=== PATIENT | female | born 1940 | race Caucasian/White ===

== ENCOUNTER 2018-04-17 18:04 | Emergency (ER) | payer MEDICARE, OTHER, SELFPAY ==
[2018-04-17 18:05] VITALS: BP 160/95; PULSE 56; RESP 20; TEMP 36.6; O2SAT 91; BMI 29.2
--- NOTE | 2018-04-17 19:15 | CT_ITS ---
STUDY: CT ABDOMEN AND PELVIS WITH CONTRAST REASON FOR EXAM: Female, 78 years old. RT SIDED ABDOMEN AND GROIN PAIN hX: COPD, HTN, CHOLECYSTECTOMY, SKIN CANCER RADIATION DOSAGE (If Supplied By Facility): CTDIvol = ( 19.72 ) mGy, DLP = ( 876.14 ) mGycm TECHNIQUE: Transaxial images were obtained from the dome of the diaphragm to the symphysis pubis without oral contrast. 100ML ml of Isovue 300 contrast was administered. Sagittal and coronal images were reconstructed. Individualized dose optimization techniques were used for this CT. COMPARISON: 09.11.14 FINDINGS: There are atherosclerotic calcifications of visualized coronary arteries. The visualized portions of the heart are within normal limits. There is intrahepatic ductal dilation. There is non-visualization of the gallbladder, which may be secondary to either contraction or a prior cholecystectomy. There is dilation of the common bile duct. A common bile duct stone is not seen. The CBD diameter is 19 mm. Normal spleen. Stable dilation of the duct of the pancreas. Stable thickening of the left adrenal gland. There are subcentimeter hypodensities of the right kidney. These are too small to characterize. These may be cysts. Normal left kidney. Normal visualized stomach. Normal small intestine. There are multiple colonic diverticula consistent with diverticulosis. There is non-visualization of the appendix. There are calcifications of the abdominal aorta and vascular structures. This is consistent for atherosclerotic disease. There is no abdominal aortic aneurysm. Normal inferior vena cava. Subcentimeter mesenteric lymph nodes. Normal urinary bladder. There is absence of the uterus consistent with a prior hysterectomy.There are laminectomy changes in the spine. This is consistent for previous surgery. There is bilateral facet arthropathy. Normal abdominal wall. There are degenerative changes of the osseous structures. Degenerative findings of the hips. There is scoliosis of the lumbar spine. Grade 1 anterolisthesis of L4 on L5. Fusion of L2-3 and L3-4. Old appearing compression deformity of L1. Severe bilateral neural foraminal stenosis at L1-2 and L4-5 and L5-S1. CT/Abdomen/Pelvis W IV Cont ONLY IMPRESSION: There are multiple diverticuli of the colon. There is diverticulosis but no radiographic signs for diverticulitis. There is dilation of the common bile duct. A common bile duct stone is not seen. The CBD diameter is 19 mm. Other findings as above. Electronically Signed: Moris Smith MD at 20:37 EDT , Service support ,
--- NOTE | 2018-04-17 19:22 | ED.VISSUMM ---
- ER Visit Summary Date of Service: 04/17/18 Chief Complaint: Right groin and abdominal pain History of Present Illness: The patient is a 78 F presenting with pain in her right groin and abdomen. She also complains of chronic back pain on the right side radiating to her right leg. She states the groin pain has worsened today. She has been taking her friend's Percocet with no improvement. She denies nausea or vomiting. Denies urinary complaints. Denies fever. Denies trauma. Physical Examination: Vitals are stable. Patient is afebrile. Alert no acute distress. HEENT exam is unremarkable. Neck is supple. Lungs are clear and equal bilaterally. Heart is regular rate and rhythm. Abdomen is soft right lower quadrant tenderness with no rebound or guarding Back right paraspinal lumbar muscle tenderness Extremities are unremarkable. Skin is warm and dry. No focal neurologic deficit. Remainder of exam is unremarkable. Emergency Department Course and Treatment: Patient given dilaudid, Zofran IV. CBC, chemistries unremarkable other than potassium 3.3, glucose 140. Liver and lipase are normal. Urinalysis is 10-25 white blood cells, 1+ bacteria. CT abdomen pelvis shows there are multiple diverticuli of the colon. There is diverticulosis but no radiographic signs for diverticulitis. There is dilation of the common bile duct. A common bile duct stone is not seen. The CBD diameter is 19 mm. Urine culture is sent. She is given Keflex. On reevaluation she is feeling much improved. She states she was only taking half Percocet which was not helping her pain. She is given a prescription for Percocet and Keflex. She is advised to follow-up with her primary care physician. Advised return to ED if worsening complaints. Disposition: Discharge home Impression: Abdominal pain, UTI, chronic back pain This note was generated with [employer] dictation software. It may contain incorrect words, spelling, and punctuation that were not noted in review of the chart prior to signing ED Disposition - Plan for ED Patient: Chief Complaint: Back Referrals: Mian Pal MD [Primary Care Provider] -
[2018-04-17] MEDS: HYDROmorphone 1 MG/ML Syringe IV (19:32)
[2018-04-17] MEDS: Ondansetron 4 MG/2 ML Vial IV (19:32)
[2018-04-17 19:36] LABS: Absolute Lymphocyte Count 1.04 X10^3/ul (0.83-4.51); Absolute Neutrophil Count 8.5 X10^3/uL (2.0-7.7); Basophil# 0.02 X10^3/uL; Basophil% 0.2 % (0-1); Eosinophil# 0.01 X10^3/uL; Eosinophils% 0.1 % (0-5); Hematocrit 47.2 % (37-47); Hemoglobin 15.5 g/dl (12.0-15.0); Lymphocyte # 1.04 X10^3/ul (4.0); Lymphocyte % 10.3 % (19-41); Mean Corp Hgb Conc 32.8 g/gl (32-36); Mean Corpuscular Hgb 32.4 pg (27.0-32.0); Mean Corpuscular Volume 98.7 fL (81-99); Mean Platelet Vol. 9.5 fl (6.2-12.0); Monocyte# 0.44 X10^3/uL; Monocyte% 4.4 % (0-10); Neutrophil # 8.53 X10^3/uL (2.7-7.7); Neutrophil % 84.9 % (47-70); POSITIVE COUNT NO; POSITIVE DIFFERENTIAL NO; POSITIVE MORPHOLOGY NO; Platelet Count 277 K/mm3 (150-450); RBC Distribution Width CV 13.2 % (11.6-14.6); RBC Distribution Width SD 47.9 fl (35.1-43.9); Red Blood Count 4.78 M/mm3 (4.2-5.4); White Blood Count 10.1 K/mm3 (4.4-11.0)
[2018-04-17 19:48] LABS: BUN 16 mg/dL (7-18); Creatinine, Serum 1.01 mg/dL (0.55-1.02); EST Glomerular Filtration Rate 57 mL/min (>60); Estimated Creatinine Clearance 37.48 ml/min; Glucose 140 mg/dL (74-106)
[2018-04-17 19:49] LABS: Anion Gap 5 (5-15); BUN/Creat Ratio 15.8 RATIO (10-20); Calcium,Total 9.8 mg/dL (8.5-10.1); Chloride 98 mmol/L (98-107); Est Glom Filt Rate - Afr Amer 69 mL/min (>60); Potassium 3.3 mmol/L (3.5-5.1); Sodium Level 138 mmol/L (136-145)
[2018-04-17 20:49] LABS: Mucous, Urine 0 SEEN /hpf (<or=2+)
[2018-04-17 20:54] LABS: Color, Urine Yellow (Yellow); Glucose, Dipstick Normal (Normal); Ketone-Dipstick Negative (Negative); Leukocyte Esterase-Dipstick 100 /ul (Negative); Nitrite-Dipstick Positive (Negative); Occult Blood-Urine 150 /ul (Negative); Protein-Dipstick 30 mg/dl (Negative); Specific Gravity, Urine 1.015 (1.002-1.030); Urine Bilirubin Dipstick Negative (Negative); Urine Clarity Cloudy (Clear); Urine Urobilinogen Normal (Normal)
[2018-04-17 21:08] LABS: Hyaline Cast 0-5 SEEN /lpf (0-5)
[2018-04-17 21:08] LABS: AST(SGOT) 30 U/L (15-37); Alanine Aminotransfer ALT/SGPT 22 U/L (13-56); Albumin, Serum 3.2 g/dL (3.2-5.0); Alkaline Phosphatase 101 U/L (45-117); Bilirubin, Direct 0.15 mg/dL (0.00-0.30); Globulin 4.6 g/dL (2.2-4.2); Lipase 143 U/L (73-393); Protein, Total 7.8 g/dL (6.4-8.2)
[2018-04-17 21:11] LABS: Bacteria 1+ /hpf (None Seen)
[2018-04-17 21:13] LABS: Red Blood Cells-Urine 0-5 SEEN /hpf (0-5)
[2018-04-17 21:22] LABS: Yeast-Urine 2+ /hpf (None Seen)
[2018-04-17 21:23] LABS: Squamous Epithelial Cells - UA 5-10 SEEN /hpf (5-10)
[2018-04-17 21:24] LABS: White Blood Cells 10-25 SEEN /hpf (0-5)
--- NOTE | 2018-04-17 22:12 | ED.DEP ---
ED Disposition - Plan for ED Patient: Chief Complaint: Back Instructions: ED Abdominal Pain Unkn Cause Prescriptions: Oxycodone HCl/Acetaminophen [Percocet 5/325] 1 tablet PO Q6H PRN PRN 3 Days #12 tablet PRN Reason: Pain Cephalexin [Keflex] 500 mg PO BID #14 capsule Referrals: Mian Pal MD [Primary Care Provider] -
[2018-04-17] MEDS: Cephalexin 250 MG Capsule 500 MG PO (22:27)
[2018-04-17 22:35] VITALS: BP 167/84; PULSE 64; RESP 16; O2SAT 92
== END 2018-04-17 22:36 | disposition home or self-care (01) ==
LOC: ED 19:33
PROVIDERS: Emergency Provider Emergency Medicine; Family Provider Family Medicine; PCP Family Medicine
DX: R10.31 Right lower quadrant pain (principal); N39.0 Urinary tract infection, site not specified; K57.90 Diverticulosis of intestine, part unspecified, without perforation or abscess without bleeding; K83.8 Other specified diseases of biliary tract; M54.9 Dorsalgia, unspecified; G89.29 Other chronic pain; J44.9 Chronic obstructive pulmonary disease, unspecified; I10 Essential (primary) hypertension; Z72.0 Tobacco use; Z79.899 Other long term (current) drug therapy
CPT/HCPCS: 74177; 80048; 80076; 81001; 83690; 85025; 87086; 87088; 87186; 96374; 96375; 99284; Q9967; A4216; J2405

== ENCOUNTER 2018-04-22 11:59 | Emergency (ER) | payer MEDICARE, OTHER, SELFPAY ==
[2018-04-22 11:59] VITALS: BP 184/73; PULSE 50; RESP 16; TEMP 35.9; O2SAT 91; BMI 28.9
--- NOTE | 2018-04-22 12:17 | ED.VISSUMM ---
- ER Visit Summary Date of Service: 04/22/18 Chief Complaint: Constipation History of Present Illness: The patient is a 78 F who complains of constipation. She has had this for 1 week. She was started on narcotics for back pain last week. Since then her bowel movements have ceased. Denies nausea or vomiting. She tried an enema, milk of magnesia and suppositories without any relief. No issues with constipation in the past. Physical Examination: Vital signs reviewed. HEENT exam unremarkable. Heart is regular rate and rhythm without murmurs. Lungs are clear to auscultation. Abdomen is soft with mild diffuse tenderness. Back exam reveals some lumbar tenderness secondary to the sciatic. Extremities reveal no edema. Skin exam normal. Neurologic exam normal. Test Results: KUB reveals a nonspecific bowel gas pattern without obstruction Emergency Department Course and Treatment: Patient was given a soapsuds enema with great results. She feels much better. I will send her home with Colace to take every day while she is on the narcotics. I will give her prescription for magnesium citrate if she gets constipated again. Treatment Plan: [] Disposition: Discharge Impression: Constipation This note was generated with [employer] dictation software. It may contain incorrect words, spelling, and punctuation that were not noted in review of the chart prior to signing ED Disposition - Plan for ED Patient: Chief Complaint: Constipation Referrals: Mian Pal MD [Primary Care Provider] -
--- NOTE | 2018-04-22 12:33 | RAD_ITS ---
STUDY: X-RAY - ABDOMEN/PELVIS REASON FOR EXAM: Female, 78 years old. Constipation for one week. TECHNIQUE: Two AP supine views of the abdomen and pelvis. COMPARISON: 2 AP supine views of the abdomen and pelvis September 13, 2014; CT abdomen and pelvis April 17, 2018. FINDINGS: Normal visualized lung bases. There is a nonspecific pattern of gas and loops of nondistended small bowel and colon. Visible sites of stool within the colon appear within normal limits. There is no demonstrated free abdominal air. The visualized liver, spleen and kidneys are grossly normal in size and morphology. Atherosclerotic calcifications of the abdominal aorta again seen. There are stable diffuse degenerative changes and moderate levorotoscoliosis of the visualized lumbar spine. Prior L4-5 laminectomies as well as degenerative arthrosis of the sacroiliac joints again noted. RAD/Abdomen Single View IMPRESSION: 1. Nonspecific bowel gas pattern. No free gas. 2. Aortic atherosclerotic vascular calcifications. 3. Prior L4-5 laminectomies, degenerative changes of the spine and pelvis, and mid lumbar levoscoliosis unchanged. Electronically Signed: Antonio Rosales MD at 12:50 EDT , Service support ,
--- NOTE | 2018-04-22 14:16 | ED.DEP ---
ED Disposition - Plan for ED Patient: Disposition: Home or Assisted Living Chief Complaint: Constipation Instructions: ED Constipation Prescriptions: Docusate Sodium [Colace] 100 mg PO DAILY #30 cap Magnesium Citrate [Citrate Of Magnesia] 300 ml PO X1 #300 ml Referrals: Mian Pal MD [Primary Care Provider] -
[2018-04-22 14:24] VITALS: BP 158/94; PULSE 52; RESP 18; O2SAT 94
== END 2018-04-22 14:35 | disposition home or self-care (01) ==
PROVIDERS: Emergency Provider Emergency Medicine; Family Provider Family Medicine; PCP Family Medicine
DX: K59.00 Constipation, unspecified (principal); I10 Essential (primary) hypertension; M54.9 Dorsalgia, unspecified; Z72.0 Tobacco use
CPT/HCPCS: 74018; 99284

== ENCOUNTER → 2018-04-26 14:08 | Outpatient (CLI) | payer MEDICARE, OTHER, SELFPAY ==
--- NOTE | 2018-04-26 14:11 | RAD_ITS ---
STUDY: X-RAY - PELVIS AND RIGHT HIP REASON FOR EXAM: Right hip pain, no specific injury. TECHNIQUE: Radiological exam, hip, unilateral, with pelvis when performed; 2 or 3 views. COMPARISON: None. FINDINGS: There is a small pelvic phlebolith. There are postoperative and degenerative changes of the lumbar spine. Normal bilateral iliac wings, sacroiliac joints and visualized sacrum. Normal bilateral superior and inferior pubic rami. Normal pubic symphysis. There is heterotopic ossification adjacent to the right ischial tuberosity. Normal visualized femoral head. Normal acetabulum. Normal hip joint. There is mild bilateral greater trochanteric enthesopathy. 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 Mild bilateral greater trochanteric enthesopathy. Electronically Signed: Marvel Harrison MD at 14:06 EDT Tel , Service support ,
== END ==
PROVIDERS: Family Provider Family Medicine; PCP Family Medicine; Visit Provider Anesthesiology Pain Medicine
DX: M25.551 Pain in right hip (principal)
CPT/HCPCS: 73502

== ENCOUNTER 2018-08-01 13:54 | Emergency (ER) | payer MEDICARE, OTHER, SELFPAY ==
[2018-08-01 13:55] VITALS: BP 131/83; PULSE 71; RESP 14; TEMP 36; O2SAT 98; BMI 26.4
--- NOTE | 2018-08-01 14:07 | ED.RN ---
[employer] informed of pt. 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 esperanza del angel rn [phone]
--- NOTE | 2018-08-01 14:30 | CT_ITS ---
STUDY: CT BRAIN WITHOUT CONTRAST REASON FOR EXAM: Female, 78 years old. Confusion. Mental status changes. RADIATION DOSAGE (If Supplied By Facility): CTDIvol = ( 44.99 ) mGy, DLP = ( 745.49 ) mGycm TECHNIQUE: Transaxial CT imaging of the brain was performed without administration of intravenous contrast material. Individualized dose optimization techniques were used for this CT. COMPARISON: Comparison is made with prior study dated September 11, 2014. FINDINGS: Normal soft tissue structures. Normal calvarium. There is mild cerebral atrophy with widening of the extra-axial spaces and ventricular dilatation. Stable focal area of the encephalomalacia in the posterior medial aspect of the left occipital lobe. Old lacunar infarct in the left thalamus. Normal brainstem. Normal cerebellum. There is no intracranial hemorrhage. There are no findings of an acute ischemic infarction. Normal visualized paranasal sinuses. CT/Brain/Head without Contrast IMPRESSION: Chronic involutional changes of the brain. No acute abnormality is seen. Electronically Signed: Rodney Mo MD at 15:40 EST Tel [phone], Service support ,
--- NOTE | 2018-08-01 14:54 | CM.ED ---
Social Work Note Attempted to see pt for grief support. Pt in bathroom for urine sample. Will try again later. Esmer Sheppard, PAYROLL BENEFITS CLERK, JASON
[2018-08-01 15:04] LABS: Absolute Lymphocyte Count 2.05 X10^3/ul (0.83-4.51); Basophil# 0.03 X10^3/uL; Basophil% 0.3 % (0-1); Eosinophil# 0.05 X10^3/uL; Eosinophils% 0.6 % (0-5); Hematocrit 46.8 % (37-47); Hemoglobin 15.2 g/dl (12.0-15.0); Lymphocyte # 2.05 X10^3/ul (4.0); Lymphocyte % 23.4 % (19-41); Mean Corp Hgb Conc 32.5 g/gl (32-36); Mean Corpuscular Volume 101.5 fL (81-99); Mean Platelet Vol. 9.5 fl (6.2-12.0); Monocyte# 0.63 X10^3/uL; Monocyte% 7.2 % (0-10); Neutrophil % 68.4 % (47-70); Platelet Count 342 K/mm3 (150-450); RBC Distribution Width CV 13.7 % (11.6-14.6); RBC Distribution Width SD 51.3 fl (35.1-43.9); Red Blood Count 4.61 M/mm3 (4.2-5.4); White Blood Count 8.8 K/mm3 (4.4-11.0)
[2018-08-01 15:05] LABS: POSITIVE COUNT NO; POSITIVE DIFFERENTIAL NO; POSITIVE MORPHOLOGY NO
[2018-08-01 15:16] LABS: Anion Gap 7 (5-15); BUN 16 mg/dL (7-18); BUN/Creat Ratio 14.8 RATIO (10-20); Calcium,Total 9.1 mg/dL (8.5-10.1); Chloride 101 mmol/L (98-107); Creatinine, Serum 1.08 mg/dL (0.55-1.02); EST Glomerular Filtration Rate 52 mL/min (>60); Est Glom Filt Rate - Afr Amer 63 mL/min (>60); Estimated Creatinine Clearance 39.88 ml/min; Glucose 98 mg/dL (74-106); Potassium 3.1 mmol/L (3.5-5.1); Sodium Level 141 mmol/L (136-145)
[2018-08-01 15:21] LABS: Color, Urine Yellow (Yellow); Glucose, Dipstick Normal (Normal); Ketone-Dipstick Negative (Negative); Leukocyte Esterase-Dipstick 25 /ul (Negative); Mucous, Urine 0 SEEN /hpf (<or=2+); Nitrite-Dipstick Positive (Negative); Occult Blood-Urine 50 /ul (Negative); Protein-Dipstick 30 mg/dl (Negative); Specific Gravity, Urine 1.015 (1.002-1.030); Urine Bilirubin Dipstick Negative (Negative); Urine Clarity Cloudy (Clear); Urine Urobilinogen 1 mg/dl (Normal)
[2018-08-01 15:25] LABS: Bacteria 3+ /hpf (None Seen); Red Blood Cells-Urine 0-5 SEEN /hpf (0-5); Squamous Epithelial Cells - UA 0-5 SEEN /hpf (5-10); White Blood Cells 0-5 SEEN /hpf (0-5)
--- NOTE | 2018-08-01 15:43 | CM.ED ---
Social Work Note Face to face with the pt to discuss grief. Introduced self and role at [facility]. The pt presents with a sad affect as evidenced by tearfulness. She recently lost her son, Tim. Throughout conversation the pt reflects on his life and their mccloud. She identifies her sister, Solo, as a primary support that lives locally to her. She has recently reached out to her physician and has been written a prescription for Ativan. Educate to the benefit of counseling and the pt accepts various resources in the [facility] and [facility]. Declines to have an appointment made at this time. Made aware that SW is available throughout her visit if needs or questions arise. Esmer Sheppard, DAM WORKER, JASON
--- NOTE | 2018-08-01 16:08 | ED.DCSUM_ITS ---
- ER Visit Summary Date of Service: 08/01/18 Chief Complaint: Memory lapses History of Present Illness: The patient is a [address] Pal. She reports on July 20 her son . States that she is under a great deal of stress from this. The was 2 days ago. There is been a lot of company in town. She has not been sleeping well. Patient reports that 3 days ago she was sitting on the front porch smoking a cigarette and dropped it. Family reports that she was just staring off into the distance. They had a back to her and it was as though she did not recognize that it was a cigarette and had a glazed look on her face. She got up and walked back into the house. When she stepped in the living room was as though she snapped back into reality. This last approximately 2-3 minutes. Family reports that yesterday she had a similar episode, but dropped a cigarette on the kitchen table. This last approximately 2-3 minutes as well. Patient reports that she is not having any other symptoms. Patient does admit that she feels depressed. She has been on Paxil for quite some time. She denies any suicidal ideation. She is in the process of finding a counselor to help her through this difficult period of her life. Review of systems: General: No fever, chills, cold sweats. Cardiovascular: No chest pain, palpitations. Respiratory: No cough, shortness of breath, dyspnea on exertion. Gastrointestinal: No abdominal pain, nausea, vomiting, diarrhea, melena, or hematochezia. Genitourinary: No dysuria, frequency, hematuria. Skin: No rash. Neuro: No headache, numbness, weakness. Physical Examination: Vitals: Stable. Afebrile. General: Well-nourished and well-developed. Head: Normocephalic atraumatic. Neck: Supple, no lymphadenopathy. No JVD. Nontender. Cardiovascular: Regular rate and rhythm. No murmurs. Respiratory: No respiratory distress. Clear to auscultation bilaterally. Abdominal: Soft, nontender, nondistended, normal bowel sounds. No guarding, rebound, or peritoneal signs. Back: Nontender. Extremities: Nontender, no edema. Skin: Normal color, no rash. Neurologic: Alert and oriented ?3. Cranial nerves II through XII are intact. Normal strength and sensation. Mental status exam: Patient appears their stated age. Good posture and grooming. Good eye contact. Normal rate, volume, and latency of speech. No suicidal or homicidal ideation. No auditory or visual hallucinations. Flow of thought is logical. Insight and judgment is fair. Test Results: CBC is marked for hemoglobin of 15.2. Chem-7 more for potassium 3.1, CO2 33, creatinine 1.08. UA is marked for leukocytes, nitrites, blood, and 3+ bacteria. CT brain shows chronic involutional changes. Emergency Department Course and Treatment: Patient is resting comfortably without complaint. Treatment Plan: I suspect the patient's symptoms are really more due to a lack of sleep and the stress that she is under. She feels well and would like to go home. She will be discharged with Keflex 500 mg p.o. twice daily times 1 week. Instructed to follow-up with her primary care physician in 3-5 days if not improving. Return to the emergency department for any worsening symptoms. Disposition: To home in improved and stable condition. Impression: 1. Nitrite positive urine. 2. Depression, situational. This note was generated with [email or web address] dictation software. It may contain incorrect words, spelling, and punctuation that were not noted in review of the chart prior to signing ED Disposition - Plan for ED Patient: Disposition: Home or Assisted Living Chief Complaint: General Illness Instructions: ED Grief Reaction Prescriptions: Cephalexin [Keflex] 500 mg PO Q12 #14 cap Referrals: Mian Pal MD [Primary Care Provider] - 1 Week if not improving
[2018-08-01 16:15] VITALS: BP 156/129; PULSE 71; RESP 16; O2SAT 94
== END 2018-08-01 16:17 | disposition home or self-care (01) ==
LOC: ED 14:35
PROVIDERS: Emergency Provider Emergency Medicine; Family Provider Family Medicine; PCP Family Medicine
DX: F43.21 Adjustment disorder with depressed mood (principal); R82.90 Unspecified abnormal findings in urine; I10 Essential (primary) hypertension; J44.9 Chronic obstructive pulmonary disease, unspecified; M54.9 Dorsalgia, unspecified; G89.29 Other chronic pain; F17.210 Nicotine dependence, cigarettes, uncomplicated; Z79.82 Long term (current) use of aspirin; Z79.899 Other long term (current) drug therapy; Z86.73 Personal history of transient ischemic attack (TIA), and cerebral infarction without residual deficits
CPT/HCPCS: 70450; 80048; 81001; 85025; 99283; A4216

== ENCOUNTER → 2018-09-27 13:30 | Outpatient (CLI) | payer MEDICARE, OTHER, SELFPAY ==
--- NOTE | 2018-09-27 14:18 | RAD_ITS ---
STUDY: X-RAY - RIGHT HIP REASON FOR EXAM: Female, 78 years old. Fall, right hip pain. TECHNIQUE: 2 views of the hip. COMPARISON: None. FINDINGS: No significant degeneration of the right hip articulation. No right hip fracture. Dystrophic ossification subjacent to the right ischial tuberosity, chronic. Pubic rami intact. RAD/HIP, UNI W/ Pelvis 2-3 Views IMPRESSION: No acute injury. Electronically Signed: Crispin Talley MD at 16:05 EST Tel , Service support ,
== END ==
PROVIDERS: Family Provider Family Medicine; PCP Family Medicine; Referring Provider Anesthesiology Pain Medicine; Visit Provider Anesthesiology Pain Medicine
DX: M25.551 Pain in right hip (principal)
CPT/HCPCS: 73502

== ENCOUNTER → 2019-10-04 15:05 | Outpatient (CLI) | payer MEDICARE, OTHER, SELFPAY ==
--- NOTE | 2019-10-04 15:09 | RAD_ITS ---
STUDY: X-RAY - CERVICAL SPINE REASON FOR EXAM: Female, 79 years old. NECK PAIN W/RADIATION IN L SHOULDER X 1 YEAR TECHNIQUE: 3 view(s) of the cervical spine were obtained. COMPARISON: None FINDINGS: Normal anterior atlantoaxial articulation. Normal odontoid process. Normal cervical lordosis. There is multi-level endplate spondylosis. There is multi-level degenerative disc disease with multilevel disc space narrowing. The soft tissue structures are unremarkable. There is no demonstrated fracture of the cervical spine. RAD/Cerv Spine 2 or 3 Views IMPRESSION: Degenerative changes. No acute abnormality. Electronically Signed: Mark Neumann MD at 22:08 EST , Service support ,
== END ==
PROVIDERS: PCP Family Medicine; Referring Provider Anesthesiology Pain Medicine; Visit Provider Anesthesiology Pain Medicine
DX: M54.2 Cervicalgia (principal)
CPT/HCPCS: 72040

== ENCOUNTER → 2020-01-22 14:23 | Outpatient (CLI) | payer MEDICARE, OTHER, SELFPAY ==
--- NOTE | 2020-01-22 14:26 | RAD_ITS ---
STUDY: X-RAY - RIGHT SHOULDER REASON FOR EXAM: Female, 80 years old. PAIN W/ ROM. POST FALL. HX ROTATOR CUFF SURGERY. TECHNIQUE: 2 view(s) of the shoulder. COMPARISON: None. FINDINGS: There is moderate degenerative arthrosis of the glenohumeral articulation. There is degenerative arthrosis of the acromioclavicular joint without inferior osseous spur formation. Normal acromion. Normal humeral head and visualized proximal humerus. The soft tissue structures are unremarkable. Normal visualized pulmonary apex. RAD/Shoulder min 2 Views IMPRESSION: Osteoarthritis. Electronically Signed: Rodney Mo, at 15:50 EDT , Service support ,
== END ==
PROVIDERS: PCP Family Medicine; Referring Provider Anesthesiology Pain Medicine; Visit Provider Anesthesiology Pain Medicine
DX: M25.512 Pain in left shoulder (principal)
CPT/HCPCS: 73030

== ENCOUNTER 2021-04-08 14:36 | Emergency (ER) | payer MEDICARE, OTHER, SELFPAY ==
[2021-04-08 14:36] VITALS: BP 122/82; PULSE 57; RESP 16; TEMP 36.4; O2SAT 96; BMI 28.1
--- NOTE | 2021-04-08 15:35 | EDS_ITS ---
HPI History of Present Illness Chief Complaint: Lower Extremity Injury Informant: patient Onset/Context/Timing Onset: Days (2.5) Context: Gradual Onset Timing: Continuous Quality of Pain: Aching Location: Right ankle Current Severity: Mild Maximum Severity: Severe Worsened by: Bearing weight Relieved by: resting Associated Symptoms Associated Symptoms: Negative for Parasthesia, Weakness and Loss of Funtion Narrative Narrative: Patient first noticed discomfort in her right ankle when she got up off of a couch couple days ago, has been progressively getting more red and painful especially when bearing weight. She can move it okay, but it is very hard to walk on because of pain. She denies any systemic symptoms such as fevers or chills. Redness has been isolated to the lateral aspect of the right ankle along with the majority of the pain there, a little on the medial side. She denies a history of gout, but states that her mother had it. She denies any injury recently. [facility] Medical History CVA (cerebral vascular accident) Depression Hyperlipidemia Hypertension Home Medications pravastatin 40 mg PO QHS 09/02/14 [History Last Taken 04/16/18] atenolol 50 mg PO DAILY 04/17/18 [History Last Taken 04/16/18] hydrochlorothiazide 25 mg PO DAILY 04/17/18 [History Last Taken 04/16/18] levothyroxine 112 mcg PO DAILY@0600 04/17/18 [History Last Taken 04/16/18] oxycodone-acetaminophen 1 tab PO Q6H PRN PRN 3 Days #12 tablet 04/17/18 [Rx Last Taken Unknown] aspirin 81 mg PO DAILY@0800 08/01/18 [History Last Taken Unknown] lorazepam 0.5 mg PO BID PRN PRN 08/01/18 [History Last Taken Unknown] paroxetine HCl [Paxil] 40 mg PO DAILY 08/01/18 [History Last Taken Unknown] cephalexin 500 mg PO Q6 #28 capsule 04/08/21 [Rx Last Taken Unknown] hydrocodone-acetaminophen 1 tab PO Q4H PRN PRN 2 Days #10 tablet 04/08/21 [Rx Last Taken Unknown] prednisone 40 mg PO DAILY #10 tablet 04/08/21 [Rx Last Taken Unknown] Allergy/AdvReac Type Severity Reaction Status Date / Time Corticosteroids Allergy Swelling Verified 04/08/21 14:38 (Glucocorticoids) codeine AdvReac Other Verified 04/08/21 14:38 cortisone [Cortisone] AdvReac Swelling Verified 04/08/21 14:38 morphine AdvReac Other Verified 04/08/21 14:38 Surgical History (Updated 04/08/21 @ 15:14 by Love Arias) History of left hip replacement Social History Smoking Status: Current every day smoker tobacco type: cigarettes ROS ROS ED Constitutional Constitutional ED: Denies chills or fever(s) Musculoskeletal Musculoskeletal: Reports extremity pain; Denies neck pain Integumentary Reports as per HPI and erythema; Denies Abrasions, rash or wounds Neurologic Neurologic: Denies paresthesias or weakness EXAM Physical Exam Const Vital Signs: 04/08/21 14:36 04/08/21 18:03 Temperature 97.6 F L Temperature Source Temporal Pulse Rate 57 L 60 Respiratory Rate 16 16 Blood Pressure 122/82 H 161/113 H Blood Pressure Mean 95 129 Pulse Ox 96 95 Oxygen Delivery Method Room Air Room Air Positive well nourished and well developed General Appearance ED: well developed and NAD Neck full ROM and supple Back/Spine normal ROM and normal to inspection Extremity Extremity Narrative: Painless range of motion without weightbearing right ankle. Erythema without significant tenderness lateral right ankle, very very minor amount of erythema that is nontender at the medial malleolus area. With axial loading the ankles she does have some pain but it is not severe. With palpating just anterior to the lateral malleolus and the soft tissues, it is difficult to assess if there is a significant effusion or not, but she does have some tenderness there, not on the bone. No bony tenderness throughout the foot or erythema there. No lymphangitis or proximal erythema. Mild swelling at the ankle but that is bilateral and the other left is nonpainful Neuro oriented x3, no focal motor deficits and no sensory deficits noted Sensorium / Orientation: alert Psych mental status grossly normal and thought process normal Skin no wounds Skin Narrative: Erythema to the lateral aspect of the right ankle, and a mild amount of erythema on the medial aspect. No other abnormal color changes. Rashes: no rashes MDM MDM MDM Narrative Medical decision making narrative: Patient has an elevated CRP, a leukocytosis, and an elevated uric acid. Gout and septic arthritis are both in the differenti al here, and clinically she can move the joint well which argues against both of these. She is stable clinically. She has no reason to have an infection, however she understands that the treatment for gout can make infection worse. She is amenable to arthrocentesis since she has never had either 1 of these problems and I recommend further diagnostics. This was done and fluid was sent to the lab for further analysis of cell count, culture/Gram stain, and crystal analysis. Gram stain returned negative. Preliminary crystal analysis is negative, final due from pathologist another day. I do not have a white blood count yet. Patient is getting antsy and wants to leave. 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 She understands all this and is comfortable with that plan. Of note, I did give her a dose of colchicine here and she was a lot better even with weightbearing. Patient was offered crutches she declined she has a cane and is doing well with it. Lab Data Attestation: I reviewed the patient's lab results. Labs: Laboratory Results - last 24 hr 04/08/21 04/08/21 04/08/21 15:45 15:45 18:00 WBC 11.5 H RBC 4.49 Hgb 14.3 Hct 46.0 MCV 102.4 H MCH 31.8 MCHC 31.1 L RDW Std Deviation 49.4 H RDW Coeff of Rene 13.1 Plt Count 266 MPV 9.5 Immature Gran % (Auto) 0.400 Neut % (Auto) 76.5 H Lymph % (Auto) 13.4 L [place] % (Auto) 9.1 Eos % (Auto) 0.3 Baso % (Auto) 0.3 Absolute Neuts (auto) 8.8 H Absolute Lymphs (auto) 1.54 Nucleated RBC % 0 ESR 10 Sodium 140 Potassium 3.7 Chloride 104 Carbon Dioxide 33.0 H Anion Gap 3 L BUN 23 H Creatinine 1.26 H Estim Creat Clear Calc 26.01 Est GFR (MDRD) Af Amer 53 L Est GFR (MDRD) Non-Af 44 L BUN/Creatinine Ratio 18.3 Glucose 101 Uric Acid 6.7 H Calcium 9.0 C-React Prot Ext Range 115.00 H Fluid Source Cancelled Fluid Color Cancelled Fluid Appearance Cancelled Fluid WBC Cancelled Fluid RBC Cancelled Fluid Tot Cell Count Cancelled Fld Polynuclear WBCs # Cancelled Fld Polynuclear WBCs % Cancelled Fluid Mononuclear WBCs Cancelled [place] Mononuclear WBCs % Cancelled Fluid Neutrophils Cancelled Fluid Lymphocytes Cancelled Fluid Monocytes Cancelled Fluid Plasma Cells Cancelled Fluid Macrophages Cancelled Fld Mesothelial Cells Cancelled Fluid Other Cells Cancelled Fluid Crystals See PATH REV Fluid Crystal Source SYNOVIAL Fl Crystal Path Review Will follow Fl Pathologist Comment Cancelled Fluid Comment 2 Cancelled Radiography Diagnostic Testing: Radiology Impression Ankle X-Ray 04/08/21 16:00 IMPRESSION: 1. Mild soft tissue swelling 2. Old avulsion injury of the undersurface of the lateral malleolus. Electronically Signed: Murali Colunga MD at 16:23 EDT , Service support , Procedures Other Procedures Procedure(s): Right ankle arthrocentesis: Sterilely prepped anteromedial right ankle just medial to the tibialis anterior tendon with isopropanol, followed by subcutaneous injection of 1 cc plain 1% lidocaine for local anesthesia. Then prepped again with Betadine, and inserted a 21-gauge needle into the joint, aspirated 2.5 cc straw-colored nonbloody opaque fluid. Tolerated well, no complications, bandage placed. Discharge Plan Triage Chief Complaint: Lower Extremity Injury ED Provider: Austin Rangel Dx/Rx/DC Orders Clinical Impression: Arthritis of ankle, right Instructions: Eating to Prevent Gout Prescriptions: New hydrocodone-acetaminophen [hydrocodone-acetaminophen] 1 TABLET tablet 1 tab PO Q4H PRN PRN (Reason: Pain) 2 Days Qty: 10 RF: 0 cephalexin [cephalexin] 500 MG capsule 500 mg PO Q6 Qty: 28 RF: 0 prednisone 20 MG tablet 40 mg PO DAILY Qty: 10 RF: 0 No Action pravastatin 40 MG tablet 40 mg PO QHS RF: 0 atenolol 100 MG tablet 50 mg PO DAILY RF: 0 hydrochlorothiazide 25 MG tablet 25 mg PO DAILY RF: 0 levothyroxine 75 MCG tablet 112 mcg PO DAILY@0600 RF: 0 oxycodone-acetaminophen 1 TABLET tablet 1 tab PO Q6H PRN PRN (Reason: Pain) 3 Days Qty: 12 RF: 0 aspirin 81 MG tablet,chewable 81 mg PO DAILY@0800 RF: 0 paroxetine HCl [Paxil] 30 MG tablet 40 mg PO DAILY RF: 0 lorazepam 0.5 MG tablet 0.5 mg PO BID PRN PRN (Reason: Anxiety) RF: 0 Primary Care Provider: Mian Pal Referrals: Mian Pal MD [Primary Care Provider] - 3-5 Days (For reevaluation and test results) Disposition Disposition: Home, Self Care
--- NOTE | 2021-04-08 16:00 | RAD_ITS ---
STUDY: X-RAY - RIGHT ANKLE REASON FOR EXAM: Female, 81 years old. NO KNOWN INJURY. PAIN AND SWELLING OVER LATERAL SIDE OF ANKLE AT JOINT TECHNIQUE: 3 view(s) of the ankle. COMPARISON: None. FINDINGS: Tiny corticated ossicle at the undersurface of the lateral malleolus is likely result of an old avulsion injury. No evidence of an acute fracture. Mild cortical spurring is present at the periphery of the medial malleolus. The soft tissues are mildly swollen. The bony structures are demineralized. A small plantar calcaneal spur is also present. Normal visualized distal tibia and fibula. Normal medial and lateral malleoli. Normal tibiotalar articulation and ankle mortise. Normal visualized talus and calcaneus. The visualized subtalar, talonavicular, calcaneocuboid and tarsal articulations are normal. The soft tissue structures are unremarkable. RAD/Ankle min 3 Views IMPRESSION: 1. Mild soft tissue swelling 2. Old avulsion injury of the undersurface of the lateral malleolus. Electronically Signed: Murali Colunga MD at 16:23 EDT , Service support ,
[2021-04-08 16:01] LABS: Erythrocyte Sedimentation Rate 10 mm/hr (0-30)
[2021-04-08 16:03] LABS: Absolute Lymphocyte Count 1.54 X10^3/uL (0.83-4.51); Absolute Neutrophil Count 8.8 X10^3/uL (2.0-7.7); Basophil# 0.04 X10^3/uL; Basophil% 0.3 % (0-1); Eosinophil# 0.04 X10^3/uL; Eosinophils% 0.3 % (0-5); Hemoglobin 14.3 g/dL (12.0-15.0); Lymphocyte # 1.54 X10^3/ul (0.83-4.51); Lymphocyte % 13.4 % (19-41); Mean Corp Hgb Conc 31.1 g/dL (32-36); Mean Corpuscular Hgb 31.8 pg (27.0-32.0); Mean Corpuscular Volume 102.4 fL (81-99); Mean Platelet Vol. 9.5 fl (6.2-12.0); Monocyte# 1.04 X10^3/uL; Monocyte% 9.1 % (0-10); NRBC Flagged by Analyzer 0 % (0-5); Neutrophil # 8.77 X10^3/uL (2.7-7.7); Neutrophil % 76.5 % (47-70); Platelet Count 266 K/mm3 (150-450); RBC Distribution Width CV 13.1 % (11.6-14.6); RBC Distribution Width SD 49.4 fl (35.1-43.9); Red Blood Count 4.49 M/mm3 (4.2-5.4); White Blood Count 11.5 K/mm3 (4.4-11.0)
[2021-04-08 16:15] LABS: Anion Gap 3 (5-15); BUN 23 mg/dL (7-18); BUN/Creat Ratio 18.3 RATIO (10-20); Chloride 104 mmol/L (98-107); Creatinine, Serum 1.26 mg/dL (0.55-1.02); EST Glomerular Filtration Rate 44 mL/min (>60); Est Glom Filt Rate - Afr Amer 53 mL/min (>60); Estimated Creatinine Clearance 26.01 ml/min; Glucose 101 mg/dL (74-106); Potassium 3.7 mmol/L (3.5-5.1); Sodium Level 140 mmol/L (136-145); Uric Acid 6.7 mg/dL (2.6-6.0)
[2021-04-08 18:03] VITALS: BP 161/113; PULSE 60; RESP 16; O2SAT 95
--- NOTE | 2021-04-08 18:30 | ED.RN ---
CALLED TO PHARMACY FOR MEDICATION.
[2021-04-08] MEDS: Colchicine 0.6 MG TABLET PO (18:57)
[2021-04-08 19:20] LABS: Source- Body Fluid SYNOVIAL
[2021-04-08 19:21] LABS: CRYSTALS, BODY FLUID See PATH REV
[2021-04-08 19:35] LABS: Pathologist Comment May follow
--- NOTE | 2021-04-08 19:50 | ED.RN ---
Laureen DOVE stated that PT wants to leave now. aware.
[2021-04-08 20:52] LABS: Synovial Fld Mononuclear WBC % 10.5 %; Synovial Fld Polynuclear WBC % 89.5 %
[2021-04-08 20:55] LABS: RBC /Synovial Fluid 0.004 10^6/uL (0)
[2021-04-08 20:57] LABS: AUTO B FLUID DILUENT BKGD CT WBC <0.1 RBC <0.01 (W<.1,R<.01)
[2021-04-08 20:58] LABS: Appearance /Synovial Fluid Turbid (CLEAR); Color / Synovial Fluid Yellow (Pale Yellow)
[2021-04-08 20:59] VITALS: RESP 16
[2021-04-08 20:59] LABS: Body Fluid QC Type(s) BF1Q,BF2Q; Lymph 2 %; Monocyte /Synovial Fluid 10 %; Neutrophil 88 % (0-25)
[2021-04-08] MEDS: Cephalexin 250 MG Capsule 500 MG PO (20:59)
[2021-04-08] MEDS: predniSONE 20 MG Tablet 40 MG PO (20:59)
[2021-04-09 12:32] LABS: Pathologist Review Reviewed
== END 2021-04-08 21:00 | disposition home or self-care (01) ==
PROVIDERS: Emergency Provider Emergency Medicine; PCP Family Medicine
DX: M19.071 Primary osteoarthritis, right ankle and foot (principal); I10 Essential (primary) hypertension; E78.5 Hyperlipidemia, unspecified; F32.9 Major depressive disorder, single episode, unspecified; F17.210 Nicotine dependence, cigarettes, uncomplicated; Z79.52 Long term (current) use of systemic steroids; Z79.82 Long term (current) use of aspirin; Z86.73 Personal history of transient ischemic attack (TIA), and cerebral infarction without residual deficits; Z96.642 Presence of left artificial hip joint
CPT/HCPCS: 20605; 20610; 73610; 80048; 84550; 85025; 85652; 86140; 87070; 87075; 87205; 89050; 89051; 89060; 99284

== ENCOUNTER 2021-08-27 10:57 | Inpatient (IN) | payer MEDICARE, OTHER, SELFPAY ==
[2021-08-27] VITALS (11 sets, daily range): BP systolic 146–184; BP diastolic 57–119; PULSE 67–87; RESP 15–24; TEMP 36.2–36.7; O2SAT 84–98; BMI 27.3; BMI 25.8
--- NOTE | 2021-08-27 11:44 | EKG12_ITS ---
Test Reason : SOB Blood Pressure : / mmHG Vent. Rate : 068 BPM Atrial Rate : 068 BPM P-R Int : 144 ms QRS Dur : 070 ms QT Int : 412 ms P-R-T Axes : 006 -05 103 degrees QTc Int : 438 ms Normal sinus rhythm Nonspecific ST and T wave abnormality Abnormal ECG Confirmed by IMC VELEZ, CRUZITO ([id number]), editorial manager DELPHINE GOODRICH ([id number]) on 08/28/2021 1:32:08 PM Referred By: GEO/JACQUELIN Confirmed By:CRUZITO HAILE MD
--- NOTE | 2021-08-27 11:47 | EDS_ITS ---
HPI History of Present Illness Chief Complaint: Shortness of Breath Informant: patient Onset/Context/Timing Onset: Days Context: gradual Timing: Continuous Quality: Positive for Dyspnea on exertion and Wheezing; Negative for Orthopnea and PND Current Severity: Mild Maximum Severity: Severe Worsened by: Exertion and Coughing Relieved by: Nothing Associated Symptoms cough and rhinorrhea; Negative for post nasal drip, ear pain, fever, sore throat, subjective, chills or sweats Chest Pain: Positive for None Narrative Narrative: Patient is an elderly woman with history of COPD who presents with increased shortness of breath. She denies history of PE or DVT. She denies leg pain, swelling discoloration. She denies fever or chills. She does report rhinorrhea and mild congestion. She denies loss of taste or smell. She denies decreased hearing or drainage from her ears. She does have a cough. Cough is productive of white sputum. She denies chest discomfort. She states she did have lower abdominal pain which is resolved. She denies dysuria, frequency, urgency or hematuria. She denies flank pain. There is no history of trauma. She has a rash that has been present for some time. Patient states she is been vaccinated for influenza and Covid PE Risk Factors: Negative for Cancer, OCP + Smoking + > 35, Prior DVT or PE, Recent immobilization, Recent surgery and Recent travel Prior similar symptoms: Yes (COPD) Recent Illness/Hospitalization: No PFSH PFSH Medical History CVA (cerebral vascular accident) Depression Hyperlipidemia Hypertension Home Medications pravastatin 40 mg PO QHS 09/02/14 [History Last Taken 04/16/18] atenolol 50 mg PO DAILY 04/17/18 [History Last Taken 04/16/18] hydrochlorothiazide 25 mg PO DAILY 04/17/18 [History Last Taken 04/16/18] levothyroxine 112 mcg PO DAILY@0600 04/17/18 [History Last Taken 04/16/18] oxycodone-acetaminophen 1 tab PO Q6H PRN PRN 3 Days #12 tablet 04/17/18 [Rx Last Taken Unknown] aspirin 81 mg PO DAILY@0800 08/01/18 [History Last Taken Unknown] lorazepam 0.5 mg PO BID PRN PRN 08/01/18 [History Last Taken Unknown] paroxetine HCl [Paxil] 40 mg PO DAILY 08/01/18 [History Last Taken Unknown] cephalexin 500 mg PO Q6 #28 capsule 04/08/21 [Rx Last Taken Unknown] hydrocodone-acetaminophen 1 tab PO Q4H PRN PRN 2 Days #10 tablet 04/08/21 [Rx Last Taken Unknown] prednisone 40 mg PO DAILY #10 tablet 04/08/21 [Rx Last Taken Unknown] Allergy/AdvReac Type Severity Reaction Status Date / Time Corticosteroids Allergy Swelling Verified 04/08/21 14:38 (Glucocorticoids) codeine AdvReac Other Verified 04/08/21 14:38 cortisone [Cortisone] AdvReac Swelling Verified 04/08/21 14:38 morphine AdvReac Other Verified 04/08/21 14:38 Surgical History History of left hip replacement Social History (Updated 08/27/21 @ 11:[address] Osvaldo Pinto MD) household members: none Smoking Status: Current every day smoker tobacco type: cigarettes substance use type: does not use ROS ROS ED Constitutional Constitutional ED: Denies chills, fever(s), sweats or weight loss Eyes Eyes: Denies blurry vision, change in vision or diplopia ENT ENT ED: Reports rhinorrhea; Denies ear pain or sore throat Cardiovascular Cardiovascular: Denies chest pain, orthopnea, palpitations, paroxysmal nocturnal dyspnea or racing heartbeat Respiratory/Chest Respiratory/Chest: Reports cough, dyspnea, dyspnea on exertion and sputum; Denies orthopnea or paroxysmal nocturnal dyspnea Gastrointestinal Gastrointestinal: Denies abdominal pain, diarrhea, nausea or vomiting Genitourinary Genitourinary ED: Denies dysuria, hematuria or urinary frequency Musculoskeletal Musculoskeletal: Denies arthralgias, back pain, myalgias or neck pain Integumentary Reports rash; Denies abscess or Abrasions Neurologic Neurologic: Reports weakness; Denies headache(s) or paresthesias Endocrine Endocrinology: Denies polydipsia, polyphagia or polyuria Hematologic/Lymphatic Hematologic/Lymphatic: Denies easy bleeding or easy bruising EXAM Physical Exam Const Vital Signs: 08/27/21 10:59 08/27/21 11:54 08/27/21 11:56 Temperature 97.2 F L 97.2 F L Temperature Source Temporal Temporal Pulse Rate 67 67 Respiratory Rate 15 15 Respiratory Effort Short of Breath Respiratory Depth Deep Respiratory Pattern Tachypnea Blood Pressure 184/63 H 184/63 H Blood Pressure Mean 103 103 Pulse Ox 84 84 Oxygen Delivery Method Room Air Room Air Nasal Cannula Oxygen Flow Rate (L/min) 2 08/27/21 13:18 08/27/21 13:22 Temperature Temperature Source Pulse Rate 73 87 Respiratory Rate 23 H 16 Respiratory Effort Respiratory Depth Respiratory Pattern Blood Pressure 173/69 H Blood Pressure Mean 103 Pulse Ox 93 Oxygen Delivery Method Nasal Cannula Oxygen Flow Rate (L/min) 2 Positive well nourished and well developed General Appearance ED: well developed; Negative for NAD or pallor HEENT Reports TM's clear and dry mucous membranes; Denies moist mucous membranes HEENT Narrative: Uvula midline. No erythema or exudate posterior pharynx atraumatic; Negative for tenderness Tympanic Membrane ED: Yes TM's clear Mouth ED: Yes dry mucous membranes Mouth: dry mucous membranes Eyes PERRL and EOMs intact bilaterally General Eye ED: Negative for pale conjunctiva or scleral icterus Neck no lymphadenopathy, supple, no meningeal signs and no JVD General: Negative for tenderness Resp No normal respiratory effort and No clear to auscultation bilaterally Auscultation: rales bilateral base, wheezes expiratory wheezes and throughout and diminished lung sounds Cardio regular rate, regular rhythm, S1 normal heart sound, S2 normal heart sound and no murmurs GI non-tender, non-distended and no masses Auscultation: normoactive bowel sounds Palpation: soft Back/Spine no CVA tenderness and normal to inspection Extremity normal to inspection Extremity Narrative: There is no asymmetry, swelling, discoloration, leg vein distention, palpable cords or tenderness along the distribution of the deep venous system. General Extremety ED: Negative for edema or tenderness General Extremity: Negative for edema Neuro oriented x3, CN's II-XII intact bilaterally and no sensory deficits noted Lyssa Coma Scale: document GCS findings Spontaneous Obeys Commands Oriented 15 Sensorium / Orientation: alert Psych mental status grossly normal Thought Process: normal thought process Skin no wounds General Skin Exam: Negative for jaundice or pallor Lesions: no lesions Rashes: No no rashes MDM MDM MDM Narrative Medical decision making narrative: Patient presents with increasing shortness of breath over the past several days. Differential is COPD, viral upper respiratory infection exacerbate COPD, Covid pneumonia, influenza, community-acquired pneumonia. EKG was obtained to assess for cardiac rhythm and rule out ischemia. Appropriate blood work to rule out anemia, assess white count. Because of concern for infectious etiology lactate was ordered. Because there is concern that patient may have CO2 retention ABG was obtained. Case was discussed with hospitalist. She will obtain bio fire to see if this is a viral illness. If bio fire is negative she will treat with antibiotics. Lab Data Attestation: I reviewed the patient's lab results. Lab results narrative: CBC is remarkable for an elevated hemoglobin hematocrit with an MCV of 105. Comprehensive metabolic panel does not elevated creatinine of 1.21 with a GFR of 46 and glucose of 129. CO2 and anion gap are normal. Lactate was normal. ABG reveals a normal pH with evidence of chronic CO2 retention. pH is 7.36, PCO2 65.5, P O2 61.5, bicarb 37.0 with a base excess of +11.5 and 89% saturation on 2 L Labs: Laboratory Results - last 24 hr 08/27/21 08/27/21 08/27/21 11:15 11:15 11:15 WBC 11.0 RBC 4.72 Hgb 16.1 H Hct 49.6 H MCV 105.1 H MCH 34.1 H MCHC 32.5 RDW Std Deviation 53.5 H RDW Coeff of Rene 13.7 Plt Count 387 MPV 9.6 Immature Gran % (Auto) 0.500 Neut % (Auto) 75.5 H Lymph % (Auto) 14.8 L [place] % (Auto) 7.6 Eos % (Auto) 0.8 Baso % (Auto) 0.8 Absolute Neuts (auto) 8.3 H Absolute Lymphs (auto) 1.62 Nucleated RBC % 0 Sodium 143 Potassium 3.3 L Chloride 101 Carbon Dioxide 37.0 H Anion Gap 5 BUN 24 H Creatinine 1.21 H Estim Creat Clear Calc 29.82 Est GFR (MDRD) Af Amer 55 L Est GFR (MDRD) Non-Af 46 L BUN/Creatinine Ratio 19.8 Glucose 129 H Lactic Acid 1.1 Calcium 9.9 Total Bilirubin 0.70 AST 13 L ALT 12 L Alkaline Phosphatase 107 Total Protein 7.6 Albumin 2.9 L Globulin 4.7 H Albumin/Globulin Ratio 0.6 L ABG Data ABG results: ABG 08/27/21 12:58 Specimen Type ART Sample Site R Radial pH 7.36 Bicarbonate Actual 37.0 H Total CO2 39 Base Excess 12 H O2 Saturation 89 L ABG pCO2 65.5 H ABG pO2 62 L Jeremiah Test Positive O2 Delivery Device Cannula Liter Flow 2.0 Radiography Chest X-Ray - ED: 1 View (Single view chest x-ray interpreted by me as negative for infiltrate, pneumothorax or any obvious pulmonary abnormality. There is chronic changes noted. Cardiac silhouette size normal. Osseous structures are unremarkable.) Diagnostic Testing: Clinical Impression(s) from Imaging Studies Chest X-Ray 08/27/21 12:25 IMPRESSION: Hyperinflation. The lungs are clear. Electronically Signed: Rodney Mo MD at 13:09 EST , Service support , EKG Initial EKG: Attestation: I personally reviewed and interpreted this EKG as follows: Interpretation: Sinus Rhythm (Sinus rhythm ventricular rate 68. There is artifact which in my opinion is reason why computer is reading consider lateral ischemia. DE interval 144 ms. QS duration 70 ms. QT duration 412 mils seconds [place] is normal.) Discharge Plan Dx/Rx/DC Orders Clinical Impression: Acute on chronic respiratory failure with hypoxia and hypercapnia, Acute exacerbation of chronic obstructive pulmonary disease, Acute bronchospasm Disposition Disposition: [facility] Care [facility]
[2021-08-27 12:01] LABS: Absolute Lymphocyte Count 1.62 X10^3/uL (0.83-4.51); Absolute Neutrophil Count 8.3 X10^3/uL (2.0-7.7); Basophil# 0.09 X10^3/uL; Basophil% 0.8 % (0-1); Eosinophil# 0.09 X10^3/uL; Eosinophils% 0.8 % (0-5); Hematocrit 49.6 % (37-47); Hemoglobin 16.1 g/dL (12.0-15.0); Lymphocyte # 1.62 X10^3/ul (0.83-4.51); Lymphocyte % 14.8 % (19-41); Mean Corp Hgb Conc 32.5 g/dL (32-36); Mean Corpuscular Hgb 34.1 pg (27.0-32.0); Mean Corpuscular Volume 105.1 fL (81-99); Mean Platelet Vol. 9.6 fl (6.2-12.0); Monocyte# 0.83 X10^3/uL; Monocyte% 7.6 % (0-10); NRBC Flagged by Analyzer 0 % (0-5); Neutrophil # 8.27 X10^3/uL (2.7-7.7); Neutrophil % 75.5 % (47-70); Platelet Count 387 K/mm3 (150-450); RBC Distribution Width CV 13.7 % (11.6-14.6); RBC Distribution Width SD 53.5 fl (35.1-43.9); Red Blood Count 4.72 M/mm3 (4.2-5.4)
[2021-08-27 12:14] LABS: BUN 24 mg/dL (7-18); Creatinine, Serum 1.21 mg/dL (0.55-1.02); EST Glomerular Filtration Rate 46 mL/min (>60); Estimated Creatinine Clearance 29.82 ml/min; Glucose 129 mg/dL (74-106)
[2021-08-27 12:15] LABS: ALB/GLOB Ratio 0.6 RATIO (0.9-2.4); AST(SGOT) 13 U/L (15-37); Alanine Aminotransfer ALT/SGPT 12 U/L (13-56); Albumin, Serum 2.9 g/dL (3.2-5.0); Alkaline Phosphatase 107 U/L (45-117); Anion Gap 5 (5-15); BUN/Creat Ratio 19.8 RATIO (10-20); Calcium,Total 9.9 mg/dL (8.5-10.1); Chloride 101 mmol/L (98-107); Est Glom Filt Rate - Afr Amer 55 mL/min (>60); Globulin 4.7 g/dL (2.2-4.2); Lactic Acid 1.1 mmol/L (0.4-1.9); Potassium 3.3 mmol/L (3.5-5.1); Protein, Total 7.6 g/dL (6.4-8.2); Sodium Level 143 mmol/L (136-145)
[2021-08-27] MEDS: Ipratropium/Albuterol Sulfate 3 ML AMPUL.NEB INHALATION ×3 (12:23→22:39)
[2021-08-27] MEDS: Albuterol 2.5 MG/3 ML VIAL.NEB. INHALATION ×3 (12:23)
--- NOTE | 2021-08-27 12:25 | RAD_ITS ---
STUDY: X-RAY CHEST REASON FOR EXAM: Female, 81 years old. Shortness of breath, cough, hypoxia TECHNIQUE: Single AP portable view of the chest. COMPARISON: Comparison is made with prior examination dated 09/15/2014. FINDINGS: EKG electrodes are seen. There is hyperinflation of the lungs consistent with chronic obstructive lung disease (COPD). There is no demonstrated pleural abnormality. Normal size heart. Normal mediastinum and lisa. Normal visualized pulmonary arteries. There is atherosclerotic calcification of the aortic arch with tortuosity. There are diffuse degenerative changes of the visualized thoracic spine. Normal visualized ribs, clavicles, and shoulders. There is no demonstrated abnormality of the visualized soft tissue structures of the upper abdomen. RAD/Chest 1 View (Portable) IMPRESSION: Hyperinflation. The lungs are clear. Electronically Signed: Rdoney Mo MD at 13:09 EST , Service support ,
[2021-08-27 13:05] LABS: Allen Test Positive; Base Excess 12 mmol/L (-2 to +2); Blood Gas Specimen Type ART; O2 Delivery Device Cannula; PO2 62 mmHG (75-100); SITE R Radial; SO2 89 % (95-99); Total Carbon Dioxide 39 mmol/L; pCO2 65.5 mmHg (35-45); pH 7.36 (7.35-7.45)
[2021-08-27] MEDS: Potassium Chloride Oral Tablet 20 MEQ 60 MEQ PO (16:12)
[2021-08-27] MEDS: 0.9% Saline Lock 10 ML Syringe IV ×2 (16:12→22:35)
--- NOTE | 2021-08-27 16:48 | PCM.HP.STD ---
HPI - General General Date of Admission: 08/27/21 Date of Service: 08/27/21 Chief Complaint: Worsening shortness of breath HPI Narrative SOCO FLEMING, is a 81 F who presented to the emergency department was prehospital on 08/27/2021 for worsening shortness of breath. She reports that she has had worsening shortness of breath over the last 2 to 3 weeks but decided to come in today because she was feeling so much worse. She has had associated cough and rhinorrhea but denies any fever, sore throat, chills, chest pain, nausea, or vomiting or sense of taste or smell loss. She states she is coughing up some sputum but states it is no worse than her baseline sputum production. She denies any sick contacts. She does not wear oxygen at baseline but continues to smoke. Her last cigarette was approximately 24 to 48 hours ago. She states she has known COPD. There is a documented history of steroid allergy but the patient states she gets steroid injections for chronic pain and has had prednisone previously without issue. Her vitals in the emergency department show a temperature of 97.7 heart rate of 78 blood pressure of 146-173/69-119, respiratory rate of 16-23 and an oxygen saturation of 84% on room air with improvement to 93% on 2 L nasal cannula. She has an elevated hemoglobin at 16.1 which appears to be chronically elevated since 2018. Her white count is normal at 11 and she has a mild neutrophilia. An ABG was performed and showed a pH of 7.36 PCO2 of 65.5 a PO2 of 62 with a sat of 89% on 2 L nasal cannula. Her BMP showed mild hypokalemia with potassium of 3.3. A chronic metabolic alkalosis with a serum bicarb of 37.0. This is consistent with previous serum bicarbonate levels. Mildly elevated BUN and creatinine which are her baseline. Her LFTs are normal. Her chest x-ray shows chronic changes but no acute cardiopulmonary disease. Her Covid rapid swab and influenza rapid are negative. On exam her lung sounds are markedly diminished but she does have scattered harsh inspiratory and expiratory wheeze. [facility] Medical History (Updated 08/27/21 @ 17:[address] Melina Lima, ) Anxiety Chronic bronchitis Chronic respiratory failure with hypercapnia CVA (cerebral vascular accident) Depression Erythrocytosis Hearing loss, left Hearing loss, right Hx of ectopic Hyperlipidemia Hypertension Metabolic alkalosis Occasional tremors Rheumatoid arthritis Skin cancer Smoker Stage 3b chronic kidney disease (CKD) Thyroid disease TIA (transient ischemic attack) Home Medications pravastatin 40 mg PO QHS 09/02/14 [History Last Taken 08/26/21] atenolol 100 mg PO QHS 04/17/18 [History Last Taken 08/26/21] hydrochlorothiazide 25 mg PO QHS 04/17/18 [History Last Taken 08/26/21] aspirin 81 mg PO QHS 08/01/18 [History Last Taken 08/26/21] levothyroxine 112 mcg PO QHS 08/27/21 [History Last Taken 08/26/21] lorazepam 1 mg PO BID PRN 08/27/21 [History Last Taken 08/26/21] paroxetine HCl 40 mg PO QHS 08/27/21 [History Last Taken 08/26/21] Allergy/AdvReac Type Severity Reaction Status Date / Time Corticosteroids Allergy Swelling Verified 04/08/21 14:38 (Glucocorticoids) codeine AdvReac Other Verified 04/08/21 14:38 cortisone [Cortisone] AdvReac Swelling Verified 04/08/21 14:38 morphine AdvReac Other Verified 04/08/21 14:38 Family History no significant family his no significant family history Surgical History H/O: hysterectomy History of cholecystectomy History of left hip replacement S/P rotator cuff repair Social History (Updated 08/27/21 @ 16:[address] Melina Lima DO) household members: none Smoking Status: Current every day smoker tobacco type: cigarettes Smoking packs per day: 0.5 Smoking cigarettes per day: 10.0 substance use type: does not use ROS Constitutional Constitutional: Reports fatigue; Denies anorexia, change in weight, chills, fever(s), malaise, night sweats, weakness or other Eyes Eyes: Denies blurry vision, change in eye color, change in vision, discharge from eye(s), double vision, erythema, eye pain, loss of vision or other ENT HEENT: Denies abnormal hearing, dysphagia, ear pain, epistaxis, headache(s), hearing loss, nasal congestion, nasal discharge, post nasal drip, sinus pressure, sore throat or other Cardiovascular Cardiovascular: Reports dyspnea on exertion; Denies chest pain, claudication, edema, lightheadedness, orthopnea, palpitations, paroxysmal nocturnal dyspnea, rapid heart rate, syncope or other Respiratory/Chest Respiratory/Chest: Reports cough, dyspnea, productive cough, shortness of breath at rest, shortness of breath with exertion and wheezing Gastrointestinal Gastrointestinal: Denies abdominal pain, coffee ground emesis, constipation, diarrhea, dyspepsia, hematemesis, hematochezia, loose stools, melena, nausea, vomiting or other Genitourinary Genitourinary: Denies burning urination, difficulty urinating, dysuria, hematuria, nocturia, urinary frequency, urinary hesitancy, urinary incontinence, urinary urgency or other Musculoskeletal Musculoskeletal: Reports joint pain and joint stiffness; Denies arthralgias, back pain, joint swelling, myalgias, neck pain or other Neurologic Neurologic: Denies abnormal gait, abnormal speech, confusion, disequilibrium, dizziness, focal weakness, headache(s), numbness, paresthesias, seizure-like activity, seizures, syncope, tingling, tremor(s) or other Psychiatric Psychiatric: Denies anxiety, depression, homicidal ideation, suicidal ideation or other Endocrine Endocrinology: Denies change in body appearance, cold intolerance, excessive sweating, heat intolerance, polydipsia, polyuria or other Hematologic/Lymphatic Hematologic/Lymphatic: Denies anemia, easy bleeding, easy bruising, lymphadenopathy or other Allergic/Immunologic Allergic/Immunologic: Denies rhinitis, hives, eczemia, asthma or other Vital Signs Vital Signs Vital Signs: 08/27/21 10:59 08/27/21 11:54 08/27/21 11:56 Temperature 97.2 F L 97.2 F L Temperature Source Temporal Temporal Pulse Rate 67 67 Respiratory Rate 15 15 Respiratory Effort Short of Breath Respiratory Depth Deep Respiratory Pattern Tachypnea Blood Pressure 184/63 H 184/63 H Blood Pressure Mean 103 103 Blood Pressure Source Blood Pressure Position Blood Pressure Location Pulse Ox 84 84 Oxygen Delivery Method Room Air Room Air Nasal Cannula Oxygen Flow Rate (L/min) 2 08/27/21 13:18 08/27/21 13:22 08/27/21 14:07 Temperature 97.6 F L Temperature Source Temporal Pulse Rate 73 87 71 Respiratory Rate 23 H 16 23 H Respiratory Effort Respiratory Depth Respiratory Pattern Blood Pressure 173/69 H 146/119 H Blood Pressure Mean 103 128 Blood Pressure Source Blood Pressure Position Blood Pressure Location Pulse Ox 93 95 Oxygen Delivery Method Nasal Cannula Nasal Cannula Oxygen Flow Rate (L/min) 2 3 08/27/21 14:08 08/27/21 14:44 08/27/21 14:45 Temperature 97.6 F L 97.7 F L Temperature Source Temporal Oral Pulse Rate 71 70 Respiratory Rate 23 H 18 Respiratory Effort Non-Labored Respiratory Depth Normal Respiratory Pattern Normal Blood Pressure 146/119 H 169/57 H Blood Pressure Mean 128 94 Blood Pressure Source Monitor Blood Pressure Position Semi-Fowlers Blood Pressure Location Right Arm Pulse Ox 95 98 Oxygen Delivery Method Nasal Cannula Nasal Cannula Nasal Cannula Oxygen Flow Rate (L/min) 3 3 3 Weight Weight: 65.091 kg Body Mass Index (BMI) 25.8 Physical Exam Const alert, oriented x3 and no apparent distress General Appearance: cooperative HEENT normocephalic, head/scalp atraumatic, hearing grossly normal bilaterally and moist oral mucous membranes HEENT Narrative: Dentures in place, Eyes PERRL, EOMs intact bilaterally and conjunctivae normal Eyes Narrative: No scleral icterus Neck no lymphadenopathy, supple, no JVD and no carotid bruits Neck Narrative: Trachea midline, no thyroid enlargement Resp no retractions and no use of accessory muscles Resp Narrative: Markedly diminished diffusely with scattered inspiratory expiratory wheeze, poor air movement, no increased work of breathing at this time Auscultation: wheezes; Negative for crackles, rales or rhonchi Cardio regular rate, regular rhythm, S1 normal heart sound, S2 normal heart sound, no murmurs, no gallops, no clicks and no JVD GI normal to inspection, nondistended, normoactive bowel sounds, soft to palpation, non-tender and non-distended Extremity no clubbing, cyanosis or edema Peripheral Pulses: Yes pulses 2+ throughout Skin no wounds, skin turgor normal, no jaundice, no petechiae and no mottling Skin Narrative: Marked actinic keratoses in sun exposed areas on lower extremities and upper extremities Neuro oriented x3, CN's II-XII intact bilaterally, moves all extremities and no focal motor deficits Sensorium / Orientation: awake and alert Speech: speech normal Motor Exam: strength 5/5 throughout Psych affect normal Results Lab / Micro Data Attestation: I reviewed the patient's lab results. Result Diagrams: 08/27/21 11:15 08/27/21 11:15 Labs: Laboratory Results - last 24 hr 08/27/21 11:15: WBC 11.0, RBC 4.72, Hgb 16.1 H, Hct 49.6 H, MCV 105.1 H, MCH 34.1 H, MCHC 32.5, RDW Std Deviation 53.5 H, RDW Coeff of Rene 13.7, Plt Count 387, MPV 9.6, Immature Gran % (Auto) 0.500, Neut % (Auto) 75.5 H, Lymph % (Auto) 14.8 L, [facility] % (Auto) 7.6, Eos % (Auto) 0.8, Baso % (Auto) 0.8, Absolute Neuts (auto) 8.3 H, Absolute Lymphs (auto) 1.62, Nucleated RBC % 0 08/27/21 11:15: Sodium 143, Potassium 3.3 L, Chloride 101, Carbon Dioxide 37.0 H, Anion Gap 5, BUN 24 H, Creatinine 1.21 H, Estim Creat Clear Calc 29.82, Est GFR (MDRD) Af Amer 55 L, Est GFR (MDRD) Non-Af 46 L, BUN/Creatinine Ratio 19.8, Glucose 129 H, Calcium 9.9, Total Bilirubin 0.70, AST 13 L, ALT 12 L, Alkaline Phosphatase 107, Total Protein 7.6, Albumin 2.9 L, Globulin 4.7 H, Albumin/Globulin Ratio 0.6 L 08/27/21 11:15: Lactic Acid 1.1 Micro: Microbiology 08/27/21 12:30 Nasal Secretion SARS-CoV-2 Antigen (Rapid) - Final 08/27/21 12:30 Mucosa - Nasopharyngeal Influenza Types A,B Direct FA (HERMAN) - Final ABG Data ABG results: ABG 08/27/21 12:58 Specimen Type ART Sample Site R Radial pH 7.36 Bicarbonate Actual 37.0 H Total CO2 39 Base Excess 12 H O2 Saturation 89 L ABG pCO2 65.5 H ABG pO2 62 L Jeremiah Test Positive O2 Delivery Device Cannula Liter Flow 2.0 Radiology Impression Chest X-Ray 08/27/21 12:25 IMPRESSION: Hyperinflation. The lungs are clear. Electronically Signed: Rodney Mo MD at 13:09 EST , Service support , Assessment & Plan Assessment/Plan (1) Acute exacerbation of chronic obstructive pulmonary disease: (2) Acute respiratory failure with hypoxia: (3) Hypokalemia: PLAN: Acute hypoxic on chronic hypercapnic respiratory failure secondary to acute exacerbation of COPD -No change in sputum production therefore we will hold off on antibiotics at this time -Check urine Legionella and strep pneumo antigens -Covid rapid negative -Flu rapid negative -Check viral PCR -Solu-Medrol 40 q. 8 -Steroids are listed as an allergy inducing swelling but patient has been getting steroid injections for chronic pain and denies any issues -Pulmonary toilet -I-S and Acapella -Supplemental oxygen--> okay for oxygen saturation 88 to 92% given chronic hypercapnia -Would recommend pulmonary follow-up as an outpatient after discharge Hypokalemia -P.o. potassium replacement -Repeat lab in a.m. -Repeat check a.m. magnesium level Hypertension -Continue atenolol 100 mg nightly -Continue high chlorothiazide 25 mg nightly Hyperlipidemia -Continue pravastatin Hypothyroidism -Continue levothyroxine -Check TSH Depression/anxiety -Continue lorazepam 1 mg p.o. twice daily as needed -Continue paroxetine 4 mg at at bedtime DVT prophylaxis -Lovenox -SCDs CODE STATUS -DNR CCA no intubation Charges/Coding Visit Charges Inpatient E&M: 58552 Init Hosp L3
[2021-08-27] MEDS: Acetaminophen 325 MG Tablet 650 MG PO (18:04)
[2021-08-27] MEDS: Aspirin 81 MG TAB.CHEW PO (22:09)
[2021-08-27] MEDS: Pravastatin 40 MG Tablet PO (22:10)
[2021-08-27] MEDS: Levothyroxine 112 MCG Tablet PO (22:10)
[2021-08-27] MEDS: hydroCHLOROthiazide 25 MG Tablet PO (22:11)
[2021-08-27] MEDS: Atenolol 100 MG Tablet PO (22:11)
[2021-08-27] MEDS: guaiFENesin 1,200 MG Tablet 1200 MG PO (22:12)
[2021-08-27] MEDS: Paroxetine 20 MG Tablet 40 MG PO (22:12)
[2021-08-27] MEDS: LORazepam 1 MG Tablet PO (22:35)
[2021-08-28] VITALS (12 sets, daily range): BP systolic 130–180; BP diastolic 46–94; PULSE 62–99; RESP 16–22; TEMP 36.6–36.8; O2SAT 88–97
[2021-08-28] MEDS: Acetaminophen 325 MG Tablet 650 MG PO (07:00)
[2021-08-28] MEDS: 0.9% Saline Lock 10 ML Syringe IV ×4 (07:00→14:00)
[2021-08-28 07:12] LABS: Absolute Lymphocyte Count 0.65 X10^3/uL (0.83-4.51); Absolute Neutrophil Count 8.8 X10^3/uL (2.0-7.7); Basophil# 0.02 X10^3/uL; Basophil% 0.2 % (0-1); Hematocrit 44.3 % (37-47); Hemoglobin 14.3 g/dL (12.0-15.0); Lymphocyte # 0.65 X10^3/ul (0.83-4.51); Lymphocyte % 6.8 % (19-41); Mean Corp Hgb Conc 32.3 g/dL (32-36); Mean Corpuscular Volume 105.5 fL (81-99); Mean Platelet Vol. 9.7 fl (6.2-12.0); NRBC Flagged by Analyzer 0 % (0-5); Neutrophil # 8.76 X10^3/uL (2.7-7.7); Neutrophil % 91.4 % (47-70); Platelet Count 377 K/mm3 (150-450); RBC Distribution Width CV 13.4 % (11.6-14.6); RBC Distribution Width SD 52.5 fl (35.1-43.9); White Blood Count 9.6 K/mm3 (4.4-11.0)
[2021-08-28] MEDS: Ipratropium/Albuterol Sulfate 3 ML AMPUL.NEB INHALATION ×2 (07:16→14:35)
[2021-08-28] MEDS: hydrALAZINE 20 MG/ML Vial 5 MG IV (07:43)
[2021-08-28 07:51] LABS: ALB/GLOB Ratio 0.6 RATIO (0.9-2.4); AST(SGOT) 9 U/L (15-37); Alanine Aminotransfer ALT/SGPT 11 U/L (13-56); Albumin, Serum 2.5 g/dL (3.2-5.0); Alkaline Phosphatase 86 U/L (45-117); Anion Gap 7 (5-15); BUN 29 mg/dL (7-18); BUN/Creat Ratio 22.8 RATIO (10-20); Calcium,Total 9.1 mg/dL (8.5-10.1); Chloride 103 mmol/L (98-107); Creatinine, Serum 1.27 mg/dL (0.55-1.02); EST Glomerular Filtration Rate 43 mL/min (>60); Est Glom Filt Rate - Afr Amer 52 mL/min (>60); Estimated Creatinine Clearance 28.41 ml/min; Globulin 4.3 g/dL (2.2-4.2); Glucose 156 mg/dL (74-106); Magnesium 1.8 mg/dL (1.6-2.6); Phosphorus 2.9 mg/dL (2.5-4.9); Potassium 4.1 mmol/L (3.5-5.1); Protein, Total 6.8 g/dL (6.4-8.2); Sodium Level 141 mmol/L (136-145); Thyroid Stim Hormone (TSH) 0.51 uIU/mL (0.358-3.74)
--- NOTE | 2021-08-28 08:35 | CT_ITS ---
STUDY: CT ABDOMEN AND PELVIS WITH CONTRAST REASON FOR EXAM: Female, 81 years old. RLQ abdominal pain RADIATION DOSAGE (If Supplied By Facility): CTDIvol = ( 17.17 ) mGy, DLP = ( 808.92 ) mGycm TECHNIQUE: Transaxial images were obtained from the dome of the diaphragm to the symphysis pubis with oral contrast. Oral and amp; IV Gastrografin and amp; 100mL Isovue-300 was administered. Sagittal and coronal images were reconstructed. Individualized dose optimization techniques were used for this CT. COMPARISON: Comparison is made with prior study dated 04/17/2018. FINDINGS: Tiny bilateral pleural effusions. Mild increased markings in the posterior aspect of the lingular segment of the left upper lobe. Coronary artery calcification. Once again, there is evidence of the central intrahepatic biliary ductal dilatation . The common bile duct is dilated and measures 1.3 cm in transverse dimension. There is also evidence of a dilated pancreatic duct. The patient is status post cholecystectomy. Normal spleen. Normal pancreas. Normal bilateral adrenal glands. Bilateral renal cortical atrophy. Normal visualized stomach. There is evidence of a several small bowel loops in the right mid abdomen with evidence of a mucosal thickening. This may represent localized enteritis. Moderate amount of fecal material is seen in the colon. Scattered sigmoid diverticula. There is non-visualization of the appendix. There is diffuse atherosclerotic calcification of the abdominal aorta, without a demonstrated aneurysm. Normal inferior vena cava. Normal retroperitoneum. Normal urinary bladder. There is absence of the uterus consistent with a prior hysterectomy. Normal abdominal wall. There are diffuse degenerative changes of the visualized lumbar spine. Prior laminectomy and fusion at the L2-L3 and L3-L4 levels. Anterior listhesis of L4 on L5. Loss of height of the superior endplate of the L1 vertebrae. The patient is status post left total hip replacement. CT/Abdomen/Pelvis WITH Contrast IMPRESSION: Intrahepatic biliary ductal dilatation as well as dilated common bile duct and pancreatic duct. The patient is status post cholecystectomy. Mucosal thickening of the several small bowel loops in the right mid abdomen. This is suggestive of enteritis. Electronically Signed: Rodney Mo MD at 11:14 EST , Service support ,
[2021-08-28] MEDS: guaiFENesin 1,200 MG Tablet 1200 MG PO ×2 (09:43→20:19)
[2021-08-28] MEDS: HYDROmorphone 0.5 MG/0.5 ML SYRINGE IV ×2 (09:43→23:41)
[2021-08-28] MEDS: Enoxaparin 30 MG/0.3 ML Syringe SC (09:43)
--- NOTE | 2021-08-28 11:35 | NURSING ---
PETTY Hernández aware that microbiology called and stated that a sputum is still needed.
--- NOTE | 2021-08-28 13:03 | CASEMGMT ---
Social Work Pt brother Bruce Pugh requesting to speak with SW. SW met with Bruce who states pt lives at home with her sister and both pt and sister are not doing well. Bruce does not believe pt can return home at this time and will need SNF placement. SW met with pt in room with introduced self and role of SW. Pt is in bed, alert and oriented x3 and willing to speak with SW. Insurance: Medicare A&B and [facility] Living Will/HPOA: Pt sister Solo Case is HCPOA LNOK: Pt lives with her sister Solo Case. Pt has a brother Bruce Pugh who lives in [place] but is currently here to assist pt with discharge planning. Living Arrangements: Pt lives in a mobile home with 5 steps into her home. Pt states she is able to get bathed and dressed by herself, but pt brother states pt has not been bathing or dressing as she is unable and Solo is unable to assist her. Pt also states that Solo does the cooking and driving, but as conversation continued pt did admit that Solo fell and is not well and is unable to cook nor drive at this time. Pt brother Bruce states that both pt and Solo are debilitated and unable to care for themselves or each other at home. Transportation: Currently neighbors, yazidi family are providing DME: Pt has a cane and walker but states she does not use them to ambulate HHC/SNF: Previously at [facility] Discharge Plan: After much discussion with pt about ability to care for self at home, pt brother entered room and spoke with pt regarding home concerns. Pt is now agreeable to short term SNF placement. Pt and brother was provided a list of SNF providers including quality and resource use data and consistent with the patient's preferred geographic region, medical needs and insurance network. Preferred provider is 1. [facility] 2. [facility] Phone call to [facility] and they are currently not accepting patients. Phone call to [facility] and VM left. SW will await return call to check on bed availability. Pt and brother informed that [facility] cannot accept. Plan: [facility], pending acceptance. SOHEILA Limon
--- NOTE | 2021-08-28 15:07 | CASEMGMT ---
Addendum entered by Zamzam Perkins 08/28/21 15:42: ALEXIS faxed PT/OT to [facility]. Original Note: Soical Work Second phone call to [facility] and spoke with Prabha. They do have beds available. Referral faxed. ALEXIS will await determination of acceptance. Plan: [facility], pending acceptance SOHEILA Limon
--- NOTE | 2021-08-28 16:05 | CASEMGMT ---
Social Work Note SW is leaving for the day. ALEXIS placed a call to [facility] and spoke with Prabha in admissions. Prabha states she received referral but has not had a chance to look at it yet and not sure if she will get to it today. ALEXIS informed Prabha to call [facility] SW if [facility] is able to accept pt or not over the weekend as this worker is leaving soon for the day. ALEXIS provided ED SW direct number. Plan: [facility] pending acceptance Zamzam Perkins BRAIN SURGEON, [employer]
--- NOTE | 2021-08-28 16:28 | PCM.PN.HOSP ---
Subjective Subjective Patient seen this morning and reports that from a respiratory standpoint she is feeling much better. She remains on 3 L nasal cannula with saturations between 93 and 97%. This morning she is complaining of right lower quadrant abdominal pain. She states it has been there for at least 3 to 4 months on and off and seems to ebb and flow. She states she has seen multiple doctors and had multiple scans. She has had none here and since she is having acute pain I did discuss with her we will go ahead and obtain a oral contrasted scan to evaluate her abdomen better. Later in the day I did discuss her case with her brother given her permission and he is concerned because he reports that she has seemingly Dr. charless to me given multiple narcotics from different providers with regards to her abdominal symptoms. She does confirm chronic constipation but no acute changes in bowel habits. She denies melena or bright bed blood per rectum. She is had no nausea or vomiting associated with this either. Objective Data Objective Data Vital Signs: Vital Signs Temp Pulse Resp BP Pulse Ox 97.8 F 82 19 H 146/84 H 88 08/28/21 11:32 08/28/21 14:50 08/28/21 14:50 08/28/21 11:32 08/28/21 14:35 Oxygen Flow Rate (L/min) 2 Oxygen Delivery Method Nasal Cannula Weight: 65.091 kg Body Mass Index (BMI) 25.8 Intake & Output: Intake and Output for Last 24 Hours 08/26/21 08/27/21 08/28/21 23:59 23:59 23:59 Intake Total 150 / 150 500 / 500 Output Total 551 / 551 Balance 150 / -50 -51 / -51 Lab / Micro Data Result Diagrams: 08/28/21 05:49 08/28/21 05:49 Labs: Laboratory Results - last 24 hr 08/28/21 05:49: WBC 9.6, RBC 4.20, Hgb 14.3, Hct 44.3, MCV 105.5 H, MCH 34.0 H, MCHC 32.3, RDW Std Deviation 52.5 H, RDW Coeff of Rene 13.4, Plt Count 377, MPV 9.7, Immature Gran % (Auto) 0.600, Neut % (Auto) 91.4 H, Lymph % (Auto) 6.8 L, [place] % (Auto) 1.0, Eos % (Auto) 0.0, Baso % (Auto) 0.2, Absolute Neuts (auto) 8.8 H, Absolute Lymphs (auto) 0.65 L, Nucleated RBC % 0 08/28/21 05:49: Sodium 141, Potassium 4.1, Chloride 103, Carbon Dioxide 31.0, Anion Gap 7, BUN 29 H, Creatinine 1.27 H, Estim Creat Clear Calc 28.41, Est GFR (MDRD) Af Amer 52 L, Est GFR (MDRD) Non-Af 43 L, BUN/Creatinine Ratio 22.8 H, Glucose 156 H, Calcium 9.1, Phosphorus 2.9, Magnesium 1.8, Total Bilirubin 0.60, AST 9 L, ALT 11 L, Alkaline Phosphatase 86, Total Protein 6.8, Albumin 2.5 L, Globulin 4.3 H, Albumin/Globulin Ratio 0.6 L, TSH 0.51 Micro: Microbiology 08/27/21 21:00 Urine, Clean Catch Streptococcus pneumoniae Antigen (M - Final 08/27/21 21:00 Urine, Clean Catch Legionella Antigen - Final 08/27/21 Unknown Mucosa - Nasopharyngeal Respiratory Panel (PCR) - Final 08/27/21 12:30 Nasal Secretion SARS-CoV-2 Antigen (Rapid) - Final 08/27/21 12:30 Mucosa - Nasopharyngeal Influenza Types A,B Direct FA (HERMAN) - Final Radiography Diagnostic Testing: Radiology Impression Abdomen/Pelvis CT 08/28/21 08:35 IMPRESSION: Intrahepatic biliary ductal dilatation as well as dilated common bile duct and pancreatic duct. The patient is status post cholecystectomy. Mucosal thickening of the several small bowel loops in the right mid abdomen. This is suggestive of enteritis. Electronically Signed: Rodney Mo MD at 11:14 EST , Service support , Physical Exam Const alert, oriented x3 and no apparent distress Constitutional Narrative: Overweight elderly white female lying in bed sleeping but awakens easily, alert and oriented x3, complaining of right lower quadrant abdominal pain, nontoxic-appearing General Appearance: cooperative Exam Limitations: no limitations HEENT normocephalic, head/scalp atraumatic, hearing grossly normal bilaterally and moist oral mucous membranes HEENT Narrative: No thrush, Mallampati 2, edentulous Head and Scalp: normocephalic Resp normal respiratory effort, no retractions and no use of accessory muscles Resp Narrative: Diminished diffusely but wheezes much improved and now only scattered intermittent wheezes are noted, no respiratory distress at this time Auscultation: wheezes; Negative for crackles, rales or rhonchi Cardio regular rate, regular rhythm, S1 normal heart sound, S2 normal heart sound, no murmurs, no gallops, no clicks and no JVD GI normal to inspection, nondistended, normoactive bowel sounds, soft to palpation, non-tender and non-distended Extremity no clubbing, cyanosis or edema Peripheral Pulses: Yes pulses 2+ throughout Neuro oriented x3, moves all extremities and no focal motor deficits Sensorium / Orientation: awake and alert Speech: speech normal Assessment & Plan Assessment/Plan (1) Acute exacerbation of chronic obstructive pulmonary disease: (2) Acute respiratory failure with hypoxia: (3) Hypokalemia: PLAN: Acute hypoxic on chronic hypercapnic respiratory failure secondary to acute exacerbation of COPD -No change in sputum production therefore we will hold off on antibiotics at this time -Check urine Legionella and strep pneumo antigens -Covid rapid negative -Flu rapid negative -Viral -Continue Solu-Medrol 40 q. 8 -Steroids are listed as an allergy inducing swelling but patient has been getting steroid injections for chronic pain and denies any issues -Patient has not yet been able to produce a sputum culture -Pulmonary toilet -I-S and [place] -Supplemental oxygen--> okay for oxygen saturation 88 to 92% given chronic hypercapnia -Nursing communication order in place -Patient is currently on 3 L supplemental oxygen -Wean -Would recommend pulmonary follow-up as an outpatient after discharge as able Right lower quadrant abdominal pain -Patient states that she has been experiencing this on and off over the past 4 to 5 month -CT of the abdomen pelvis performed with p.o. and IV contrast and shows intrahepatic biliary duct dilation as well as common bile duct dilation and the patient is status post cholecystectomy she also has mucosal thickening of several small bowel loops in the mid and right abdomen suggestive of enteritis -Given the CT scan findings she was started on Zosyn -Calprotectin and lactoferrin were assessed -Patient okay to stay on p.o. diet at this time as patient's symptoms had improved after reevaluation later in the day -Consult to gastroenterology Hypokalemia -Resolved Hypertension -Continue atenolol 100 mg nightly -Continue high chlorothiazide 25 mg nightly Hyperlipidemia -Continue pravastatin Hypothyroidism -Continue levothyroxine -Check TSH Depression/anxiety -Continue lorazepam 1 mg p.o. twice daily as needed -Continue paroxetine 4 mg at at bedtime DVT prophylaxis -Lovenox -SCDs CODE STATUS -DNR CCA no intubation Charges/Coding Visit Charges Inpatient E&M: 79451 Subs Hosp L2
--- NOTE | 2021-08-28 16:39 | CASEMGMT ---
SOCIAL WORK Received call from [facility] who reports no beds this weekend. Potential discharge on Tuesday. SW to follow up Tuesday. Casandra Hatch, [employer], ALARM MECH[employer]IC
[2021-08-28] MEDS: Atenolol 100 MG Tablet PO (20:19)
[2021-08-28] MEDS: Paroxetine 20 MG Tablet 40 MG PO (20:19)
[2021-08-28] MEDS: Levothyroxine 112 MCG Tablet PO (20:19)
[2021-08-28] MEDS: Aspirin 81 MG TAB.CHEW PO (20:19)
[2021-08-28] MEDS: Pravastatin 40 MG Tablet PO (20:19)
[2021-08-28] MEDS: hydroCHLOROthiazide 25 MG Tablet PO (20:20)
[2021-08-28] MEDS: LORazepam 1 MG Tablet PO (20:26)
[2021-08-29] VITALS (12 sets, daily range): BP systolic 135–147; BP diastolic 71–78; PULSE 68–92; RESP 16–20; TEMP 36.6–36.8; O2SAT 92–96
[2021-08-29] MEDS: Ipratropium/Albuterol Sulfate 3 ML AMPUL.NEB INHALATION ×5 (00:15→23:09)
[2021-08-29 06:02] LABS: Absolute Lymphocyte Count 0.56 X10^3/uL (0.83-4.51); Basophil# 0.03 X10^3/uL; Basophil% 0.1 % (0-1); Hematocrit 46.3 % (37-47); Hemoglobin 14.7 g/dL (12.0-15.0); Lymphocyte # 0.56 X10^3/ul (0.83-4.51); Lymphocyte % 2.6 % (19-41); Mean Corp Hgb Conc 31.7 g/dL (32-36); Mean Corpuscular Hgb 33.5 pg (27.0-32.0); Mean Corpuscular Volume 105.5 fL (81-99); Mean Platelet Vol. 9.5 fl (6.2-12.0); Monocyte# 0.59 X10^3/uL; Monocyte% 2.8 % (0-10); NRBC Flagged by Analyzer 0 % (0-5); Neutrophil # 19.97 X10^3/uL (2.7-7.7); Neutrophil % 94.1 % (47-70); POSITIVE DIFFERENTIAL YES; Platelet Count 425 K/mm3 (150-450); RBC Distribution Width CV 13.6 % (11.6-14.6); RBC Distribution Width SD 53.6 fl (35.1-43.9); Red Blood Count 4.39 M/mm3 (4.2-5.4); White Blood Count 21.2 K/mm3 (4.4-11.0)
[2021-08-29 06:11] LABS: Differential Indicated SCAN CRITERIA MET
[2021-08-29 06:40] LABS: ALB/GLOB Ratio 0.7 RATIO (0.9-2.4); AST(SGOT) 23 U/L (15-37); Alanine Aminotransfer ALT/SGPT 27 U/L (13-56); Albumin, Serum 2.7 g/dL (3.2-5.0); Alkaline Phosphatase 100 U/L (45-117); Anion Gap 6 (5-15); BUN 41 mg/dL (7-18); BUN/Creat Ratio 29.1 RATIO (10-20); Calcium,Total 9.6 mg/dL (8.5-10.1); Chloride 99 mmol/L (98-107); Creatinine, Serum 1.41 mg/dL (0.55-1.02); EST Glomerular Filtration Rate 38 mL/min (>60); Est Glom Filt Rate - Afr Amer 46 mL/min (>60); Estimated Creatinine Clearance 25.59 ml/min; Globulin 4.1 g/dL (2.2-4.2); Glucose 156 mg/dL (74-106); Potassium 4.1 mmol/L (3.5-5.1); Protein, Total 6.8 g/dL (6.4-8.2); Sodium Level 140 mmol/L (136-145)
[2021-08-29 07:02] LABS: Differential Comment SCANNED
[2021-08-29] MEDS: guaiFENesin 1,200 MG Tablet 1200 MG PO ×2 (10:53→21:54)
[2021-08-29] MEDS: Enoxaparin 30 MG/0.3 ML Syringe SC (10:53)
--- NOTE | 2021-08-29 10:55 | EX.PCM.CON.G ---
HPI Consult Data Date of Consult: 08/29/21 HPI Narrative HPI Narrative: SOCO FLEMING, is a 81 F who presents 81 F who presented to the emergency department was prehospital on 08/27/2021 for worsening shortness of breath. She has COPD and is on home oxygen. She has been having worsening abdominal pain for the last several months. She also carries a history of rheumatoid arthritis. She is not on any medicines for rheumatoid arthritis. I was asked to see her because she had been complaining of some abdominal pain and a CT scan of the abdomen pelvis was ordered. It had shown some nonspecific thickening in the small bowel. She does not have any diarrhea. She does not have any nausea. Stool culture for enteric pathogens were ordered but she has not had any diarrhea or any bowel movements in the last 2 days. She was started on antibiotic therapy along with steroids for COPD exacerbation. At this time she says that she has a little bit of pain in the right lower quadrant but is only when she stands up. Also, on her imaging she was noted to have dilated common bile duct and pancreatic duct. [facility] Medical History (Updated 08/29/21 @ 10:[address] Washington Friend, DO) Abdominal pain Anxiety Chronic bronchitis Chronic respiratory failure with hypercapnia Common bile duct dilatation CVA (cerebral vascular accident) Depression Erythrocytosis Hearing loss, left Hearing loss, right Hx of ectopic Hyperlipidemia Hypertension Metabolic alkalosis Occasional tremors Rheumatoid arthritis Skin cancer Smoker Stage 3b chronic kidney disease (CKD) Thyroid disease TIA (transient ischemic attack) Home Medications pravastatin 40 mg PO QHS 09/02/14 [History Last Taken 08/26/21] atenolol 100 mg PO QHS 04/17/18 [History Last Taken 08/26/21] hydrochlorothiazide 25 mg PO QHS 04/17/18 [History Last Taken 08/26/21] aspirin 81 mg PO QHS 08/01/18 [History Last Taken 08/26/21] levothyroxine 112 mcg PO QHS 08/27/21 [History Last Taken 08/26/21] lorazepam 1 mg PO BID PRN 08/27/21 [History Last Taken 08/26/21] paroxetine HCl 40 mg PO QHS 08/27/21 [History Last Taken 08/26/21] Allergy/AdvReac Type Severity Reaction Status Date / Time Corticosteroids Allergy Swelling Verified 04/08/21 14:38 (Glucocorticoids) codeine AdvReac Other Verified 04/08/21 14:38 cortisone [Cortisone] AdvReac Swelling Verified 04/08/21 14:38 morphine AdvReac Other Verified 04/08/21 14:38 Family History no significant family his Surgical History H/O: hysterectomy History of cholecystectomy History of left hip replacement S/P rotator cuff repair Social History (Updated 08/27/21 @ 16:[address] Melina Lima, DO) household members: none Smoking Status: Current every day smoker tobacco type: cigarettes Smoking packs per day: 0.5 Smoking cigarettes per day: 10.0 substance use type: does not use ROS Review of Systems ROS Unobtainable: other Constitutional Constitutional: Denies fatigue, fever(s), poor appetite, weight gain or weight loss ENT HEENT: Denies mouth lesions Cardiovascular Cardiovascular: Denies abdominal bloating, abdominal edema or abdominal pain Respiratory/Chest Respiratory/Chest: Denies change in mental status, change in phlegm color, chest congestion or chest tightness Gastrointestinal Gastrointestinal: Reports abdominal pain Genitourinary Genitourinary: Denies abdominal discomfort, burning urination or itching Musculoskeletal Musculoskeletal: Reports as per HPI; Denies muscle weakness or myalgias Integumentary Integumentary: Denies jaundice Neurologic Neurologic: Denies lack of coordination or weakness Psychiatric Psychiatric: Denies confusion, depression, memory loss, mood swings, paranoia or suicidal ideation Endocrine Endocrinology: Denies systems reviewed and no addt'l complaints, except as documented Hematologic/Lymphatic Hematologic/Lymphatic: Denies anemia, easy bleeding, easy bruising or lymphadenopathy Allergic/Immunologic Allergic/Immunologic: Denies systems reviewed and no addt'l complaints, except as documented Physical Exam Const alert General Appearance: cooperative Orientation / Consciousness: oriented to person HEENT hearing grossly normal bilaterally Head and Scalp: normal to inspection Face and Sinus: face symmetric Nose: external nose normal Mouth: oral and palatal mucosa normal Eyes conjunctivae normal General Eye: normal appearance of both eyes Neck full ROM General: normal visual inspection Lymph Lymphatic: no lymphadenopathy noted Chest inspection of chest normal and palpation of chest normal Chest: symmetrical chest wall rise Resp normal respiratory effort Effort and Inspection: able to speak in complete sentences Cardio regular rate GI non-distended Percussion: normal to percussion Rectal Exam: deferred Neuro Speech: speech normal Gait (Neuro): normal gait Lab / Micro Data Result Diagrams: 08/29/21 05:50 08/29/21 05:50 Labs: Laboratory Results - last 24 hr 08/29/21 05:50: WBC 21.2 H, RBC 4.39, Hgb 14.7, Hct 46.3, MCV 105.5 H, MCH 33.5 H, MCHC 31.7 L, RDW Std Deviation 53.6 H, RDW Coeff of Rene 13.6, Plt Count 425, MPV 9.5, Immature Gran % (Auto) 0.400, Neut % (Auto) 94.1 H, Lymph % (Auto) 2.6 L, [place] % (Auto) 2.8, Eos % (Auto) 0.0, Baso % (Auto) 0.1, Absolute Neuts (auto) 20.0 H, Absolute Lymphs (auto) 0.56 L, Nucleated RBC % 0, Differential Comment SCANNED 08/29/21 05:50: Sodium 140, Potassium 4.1, Chloride 99, Carbon Dioxide 35.0 H, Anion Gap 6, BUN 41 H, Creatinine 1.41 H, Estim Creat Clear Calc 25.59, Est GFR (MDRD) Af Amer 46 L, Est GFR (MDRD) Non-Af 38 L, BUN/Creatinine Ratio 29.1 H, Glucose 156 H, Calcium 9.6, Total Bilirubin 0.60, AST 23, ALT 27, Alkaline Phosphatase 100, Total Protein 6.8, Albumin 2.7 L, Globulin 4.1, Albumin/Globulin Ratio 0.7 L Micro: Microbiology 08/27/21 11:15 Blood Culture (Wb) - Right Forearm Blood Culture - Preliminary No growth in 48 hours. 08/27/21 11:08 Blood Culture (Wb) - Left Wrist Blood Culture - Preliminary No growth in 48 hours. Radiology Impression Abdomen/Pelvis CT 08/28/21 08:35 IMPRESSION: Intrahepatic biliary ductal dilatation as well as dilated common bile duct and pancreatic duct. The patient is status post cholecystectomy. Mucosal thickening of the several small bowel loops in the right mid abdomen. This is suggestive of enteritis. Electronically Signed: Rodney Mo MD at 11:14 EST , Service support , Assessment & Plan Assessment/Plan (1) Common bile duct dilatation: PLAN: In the setting of the common bile duct dilation and pancreatic duct dilation he did have to worry about possible ampullary cancer or adenoma. Also there is the possibility of papillary stenosis. She would need an MRI specifically an MRCP to evaluate the hepatobiliary system. At this time due to her respiratory status she is not stable enough for a nonemergent ERCP. (2) Abdominal pain: PLAN: I do not think her abdominal pain is secondary to a hepatobiliary issue at this time. I would like further imaging to help delineate whether her symptoms are associated with a biliary issue. (3) Enteritis: PLAN: There is thickening of the small bowel on imaging. There is a possibility of enteritis. She is getting covered with antibiotics that I think will cover her small bowel. This is also likely that thickened secondary to poor nutrition as she does suffer from hypoalbuminemia. I would complete a 5-day course of antibiotic therapy for enteritis at this time. Charges/Coding Visit Charges Inpatient E&M: 95242 Init Hosp L3
--- NOTE | 2021-08-29 17:46 | PCM.PN.HOSP ---
Subjective Subjective Patient was seen and examined today, she was insistent that the nurses were not giving her IV pain medications on a timely basis, I talked briefly with her brother outside of the patient's room-he told me that the patient has been hooked on narcotics for quite some time, I told him I was aware that the patient may be manipulating nursing and attendings to give her more pain meds, I assured him that I would give her only reasonable amounts of pain medication when needed. We are awaiting confirmation that we have a bed at a local [facility] care facility for the patient. Objective Data Objective Data Vital Signs: Vital Signs Temp Pulse Resp BP Pulse Ox 98.0 F 72 18 139/78 H 95 08/29/21 13:43 08/29/21 15:41 08/29/21 15:41 08/29/21 13:43 08/29/21 14:30 Oxygen Flow Rate (L/min) 2 Oxygen Delivery Method Nasal Cannula Weight: 65.091 kg Body Mass Index (BMI) 25.8 Intake & Output: Intake and Output for Last 24 Hours 08/27/21 08/28/21 08/29/21 23:59 23:59 23:59 Intake Total 150 / 150 1010.25 / 1010.25 100 / 100 Output Total 851 / 851 Balance 150 / -50 159.25 / 159.25 100 / 100 Lab / Micro Data Result Diagrams: 08/29/21 05:50 08/29/21 05:50 Labs: Laboratory Results - last 24 hr 08/29/21 05:50: WBC 21.2 H, RBC 4.39, Hgb 14.7, Hct 46.3, MCV 105.5 H, MCH 33.5 H, MCHC 31.7 L, RDW Std Deviation 53.6 H, RDW Coeff of Rene 13.6, Plt Count 425, MPV 9.5, Immature Gran % (Auto) 0.400, Neut % (Auto) 94.1 H, Lymph % (Auto) 2.6 L, [place] % (Auto) 2.8, Eos % (Auto) 0.0, Baso % (Auto) 0.1, Absolute Neuts (auto) 20.0 H, Absolute Lymphs (auto) 0.56 L, Nucleated RBC % 0, Differential Comment SCANNED 08/29/21 05:50: Sodium 140, Potassium 4.1, Chloride 99, Carbon Dioxide 35.0 H, Anion Gap 6, BUN 41 H, Creatinine 1.41 H, Estim Creat Clear Calc 25.59, Est GFR (MDRD) Af Amer 46 L, Est GFR (MDRD) Non-Af 38 L, BUN/Creatinine Ratio 29.1 H, Glucose 156 H, Calcium 9.6, Total Bilirubin 0.60, AST 23, ALT 27, Alkaline Phosphatase 100, Total Protein 6.8, Albumin 2.7 L, Globulin 4.1, Albumin/Globulin Ratio 0.7 L Micro: Microbiology 08/27/21 11:15 Blood Culture (Wb) - Right Forearm Blood Culture - Preliminary No growth in 48 hours. 08/27/21 11:08 Blood Culture (Wb) - Left Wrist Blood Culture - Preliminary No growth in 48 hours. 08/27/21 21:00 Urine, Clean Catch Streptococcus pneumoniae Antigen (M - Final 08/27/21 21:00 Urine, Clean Catch Legionella Antigen - Final 08/27/21 Unknown Mucosa - Nasopharyngeal Respiratory Panel (PCR) - Final 08/27/21 12:30 Nasal Secretion SARS-CoV-2 Antigen (Rapid) - Final 08/27/21 12:30 Mucosa - Nasopharyngeal Influenza Types A,B Direct FA (HERMAN) - Final Physical Exam Const alert, oriented x3 and no apparent distress Constitutional Narrative: Patient appears older than her stated age General Appearance: cooperative, well kempt and well developed Orientation / Consciousness: awake, oriented to person, oriented to place and oriented to time HEENT normocephalic, head/scalp atraumatic and moist oral mucous membranes Head and Scalp: normocephalic Eyes PERRL, EOMs intact bilaterally and conjunctivae normal Neck nuchal rigidity, supple, no JVD, thyroid normal and no carotid bruits General: trachea midline Resp normal respiratory effort, no retractions, no use of accessory muscles and clear to auscultation bilaterally Auscultation: Negative for rales, rhonchi or wheezes Cardio regular rate, regular rhythm, S1 normal heart sound, S2 normal heart sound, no murmurs, no rub and no gallops GI normal to inspection, nondistended, normoactive bowel sounds, soft to palpation, non-tender and non-distended Extremity no clubbing, cyanosis or edema Skin no rashes or lesions noted General Skin Exam: no breakdown Neuro oriented x3, CN's II-XII intact bilaterally, no focal motor deficits and no sensory deficits noted Sensorium / Orientation: awake and alert Speech: speech normal Psych thought process normal and affect normal Assessment & Plan Assessment/Plan (1) Enteritis: PLAN: 1. Acute mixed respiratory failure-patient remains on 2 L nasal cannula oxygen at this time, patient states that she was not using oxygen at home on a chronic basis. #2 acute enteritis-patient will continue on IV antibiotics to complete a 5-day course #3 chronic kidney disease stage IIIa #4 chronic obstructive pulmonary disease exacerbation-I have elected to decrease the patient's IV Solu-Medrol #5 hyperlipidemia #6 essential hypertension #7 leukocytosis secondary to IV corticosteroid administration #8 generalized debility due to multiple medical problems-we are awaiting placement of the patient in an extended care facility for short-term rehab services. #9 hypothyroidism #10 chronic depression #11 hypokalemia-resolved Charges/Coding Visit Charges Inpatient E&M: 35996 Subs Hosp L2
[2021-08-29] MEDS: HYDROmorphone 0.5 MG/0.5 ML SYRINGE IV ×2 (19:52→23:55)
[2021-08-29] MEDS: hydroCHLOROthiazide 25 MG Tablet PO (21:53)
[2021-08-29] MEDS: Aspirin 81 MG TAB.CHEW PO (21:53)
[2021-08-29] MEDS: Pravastatin 40 MG Tablet PO (21:54)
[2021-08-29] MEDS: Atenolol 100 MG Tablet PO (21:54)
[2021-08-29] MEDS: Paroxetine 20 MG Tablet 40 MG PO (21:54)
[2021-08-29] MEDS: Levothyroxine 112 MCG Tablet PO (21:54)
[2021-08-29] MEDS: 0.9% Saline Lock 10 ML Syringe IV (23:55)
[2021-08-30] VITALS (8 sets, daily range): BP systolic 144–163; BP diastolic 81–90; PULSE 67–88; RESP 16–18; TEMP 36.6–36.7; O2SAT 92–99
[2021-08-30] MEDS: LORazepam 1 MG Tablet PO ×3 (01:24→21:14)
[2021-08-30] MEDS: Ipratropium/Albuterol Sulfate 3 ML AMPUL.NEB INHALATION (07:56)
[2021-08-30] MEDS: guaiFENesin 1,200 MG Tablet 1200 MG PO ×2 (11:13→20:55)
[2021-08-30] MEDS: Enoxaparin 30 MG/0.3 ML Syringe SC (11:13)
--- NOTE | 2021-08-30 15:27 | EX.PCM.PN.GI ---
Subjective Subjective Patient is still complaining of a lot of abdominal pain. When I asked her where specifically she has pain she says she does not know is just generalized discomfort. Her brother is with her at the bedside and she cannot localize her pain to him either at this point. Her shortness of breath is improved. Objective Data Objective Data Vital Signs: Vital Signs Temp Pulse Resp BP Pulse Ox 98.1 F 69 18 163/81 H 98 08/30/21 13:38 08/30/21 13:38 08/30/21 13:38 08/30/21 13:38 08/30/21 13:38 Oxygen Flow Rate (L/min) 2 Oxygen Delivery Method Nasal Cannula Weight: 143 lb 8 oz Body Mass Index (BMI) 25.8 Intake & Output: Intake and Output for Last 24 Hours 08/28/21 08/29/21 08/30/21 23:59 23:59 23:59 Intake Total 1010.25 / 1010.25 299.75 / 549.75 350 / 350 Output Total 851 / 851 Balance 159.25 / 159.25 299.75 / 549.75 350 / 350 Lab / Micro Data Result Diagrams: 08/29/21 05:50 08/29/21 05:50 Micro: Microbiology 08/27/21 11:15 Blood Culture (Wb) - Right Forearm Blood Culture - Preliminary No growth in 48 hours. 08/27/21 11:08 Blood Culture (Wb) - Left Wrist Blood Culture - Preliminary No growth in 48 hours. 08/27/21 21:00 Urine, Clean Catch Streptococcus pneumoniae Antigen (M - Final 08/27/21 21:00 Urine, Clean Catch Legionella Antigen - Final 08/27/21 Unknown Mucosa - Nasopharyngeal Respiratory Panel (PCR) - Final 08/27/21 12:30 Nasal Secretion SARS-CoV-2 Antigen (Rapid) - Final 08/27/21 12:30 Mucosa - Nasopharyngeal Influenza Types A,B Direct FA (HERMAN) - Final Physical Exam Const alert General Appearance: cooperative Orientation / Consciousness: oriented to person HEENT hearing grossly normal bilaterally Head and Scalp: normal to inspection Face and Sinus: face symmetric Nose: external nose normal Mouth: oral and palatal mucosa normal Eyes conjunctivae normal General Eye: normal appearance of both eyes Neck full ROM General: normal visual inspection Lymph Lymphatic: no lymphadenopathy noted Chest inspection of chest normal and palpation of chest normal Chest: symmetrical chest wall rise Resp normal respiratory effort Effort and Inspection: able to speak in complete sentences Cardio regular rate GI non-distended Percussion: normal to percussion Rectal Exam: deferred Neuro Speech: speech normal Gait (Neuro): normal gait Assessment & Plan Assessment/Plan (1) Enteritis: PLAN: I suspect that her small bowel is thickened secondary to hypoalbuminemia from possible cirrhosis. She is on antibiotic therapy for the possibility of a small bowel infection. She will need to complete a 5-day course. (2) Abdominal pain: PLAN: I do not think her abdominal pain is from intestinal angina. I think her abdominal pain is possibly secondary to gastroparesis or narcotic bowel syndrome. After talking with her while her brother was at the bedside she is only better when she gets narcotics and her abdominal pain is worse without narcotics. That is quite a criteria for narcotic bowel syndrome. I explained to her that typically do not treat abdominal pain with narcotics because you could be masking something and it throws off the natural peristalsis creating more abdominal pain. (3) Common bile duct dilatation: PLAN: She has common bile duct dilation and pancreatic duct dilation. This should be evaluated with an MRI. Differential diagnosis would be papillary stenosis, papillary lesion. I will send a CA 19-9, alpha-fetoprotein, LDH and CEA. From a respiratory standpoint I do not know if she is stable enough for any procedure at this time. (4) Cirrhosis: PLAN: Her liver does look cirrhotic in some portions noted on CT imaging. She should get an ultrasound for further evaluation. This can be done as an inpatient or outpatient. Charges/Coding Visit Charges Inpatient E&M: 06414 Subs Hosp L3
--- NOTE | 2021-08-30 17:55 | PCM.PN.HOSP ---
Subjective Subjective Patient was seen and examined today, she is on 2 L of oxygen at this time. Patient's abdomen is soft. Gastroenterology states that the patient's liver appears cirrhotic on CT imaging, they recommended an ultrasound to be carried out sometime in the future. I talked briefly with her brother about her care, her brother emphasized that he feels the patient asked for too much narcotics. Objective Data Objective Data Vital Signs: Vital Signs Temp Pulse Resp BP Pulse Ox 98.1 F 69 18 163/81 H 98 08/30/21 13:38 08/30/21 13:38 08/30/21 13:38 08/30/21 13:38 08/30/21 13:38 Oxygen Flow Rate (L/min) 2 Oxygen Delivery Method Nasal Cannula Weight: 65.091 kg Body Mass Index (BMI) 25.8 Intake & Output: Intake and Output for Last 24 Hours 08/28/21 08/29/21 08/30/21 23:59 23:59 23:59 Intake Total 1010.25 / 1010.25 299.75 / 549.75 350 / 350 Output Total 851 / 851 Balance 159.25 / 159.25 299.75 / 549.75 350 / 350 Lab / Micro Data Result Diagrams: 08/29/21 05:50 08/29/21 05:50 Micro: Microbiology 08/27/21 11:15 Blood Culture (Wb) - Right Forearm Blood Culture - Preliminary No growth in 48 hours. 08/27/21 11:08 Blood Culture (Wb) - Left Wrist Blood Culture - Preliminary No growth in 48 hours. 08/27/21 21:00 Urine, Clean Catch Streptococcus pneumoniae Antigen (M - Final 08/27/21 21:00 Urine, Clean Catch Legionella Antigen - Final 08/27/21 Unknown Mucosa - Nasopharyngeal Respiratory Panel (PCR) - Final 08/27/21 12:30 Nasal Secretion SARS-CoV-2 Antigen (Rapid) - Final 08/27/21 12:30 Mucosa - Nasopharyngeal Influenza Types A,B Direct FA (HERMAN) - Final Physical Exam Narrative alert, oriented x3 and no apparent distress Constitutional Narrative: Patient appears older than her stated age General Appearance: cooperative, well kempt and well developed Orientation / Consciousness: awake, oriented to person, oriented to place and oriented to time HEENT normocephalic, head/scalp atraumatic and moist oral mucous membranes Head and Scalp: normocephalic Eyes PERRL, EOMs intact bilaterally and conjunctivae normal Neck nuchal rigidity, supple, no JVD, thyroid normal and no carotid bruits General: trachea midline Resp normal respiratory effort, no retractions, no use of accessory muscles and clear to auscultation bilaterally Auscultation: Negative for rales, rhonchi or wheezes Cardio regular rate, regular rhythm, S1 normal heart sound, S2 normal heart sound, no murmurs, no rub and no gallops GI normal to inspection, nondistended, normoactive bowel sounds, soft to palpation, non-tender and non-distended Extremity no clubbing, cyanosis or edema Skin no rashes or lesions noted General Skin Exam: no breakdown Neuro oriented x3, CN's II-XII intact bilaterally, no focal motor deficits and no sensory deficits noted Sensorium / Orientation: awake and alert Speech: speech normal Psych thought process normal and affect normal Assessment & Plan Assessment/Plan (1) Abdominal pain: (2) Enteritis: PLAN: 1. Acute mixed respiratory failure-patient remains on 2 L nasal cannula oxygen at this time, patient states that she was not using oxygen at home on a chronic basis. #2 acute enteritis-patient will continue on IV antibiotics to complete a 5-day course #3 chronic kidney disease stage IIIa #4 chronic obstructive pulmonary disease exacerbation-I have elected to decrease the patient's IV Solu-Medrol #5 hyperlipidemia #6 essential hypertension #7 leukocytosis secondary to IV corticosteroid administration #8 generalized debility due to multiple medical problems-we are awaiting placement of the patient in an extended care facility for short-term rehab services. #9 hypothyroidism #10 chronic depression #11 hypokalemia-resolved #12 possible cirrhosis-I talked with gastroenterology, I ordered an ultrasound on the patient's liver and gallbladder tomorrow. Charges/Coding Visit Charges Inpatient E&M: 67114 Subs Hosp L2
[2021-08-30] MEDS: Pravastatin 40 MG Tablet PO (20:55)
[2021-08-30] MEDS: hydroCHLOROthiazide 25 MG Tablet PO (20:55)
[2021-08-30] MEDS: Aspirin 81 MG TAB.CHEW PO (20:55)
[2021-08-30] MEDS: Levothyroxine 112 MCG Tablet PO (20:55)
[2021-08-30] MEDS: Atenolol 100 MG Tablet PO (20:56)
[2021-08-30] MEDS: 0.9% Saline Lock 10 ML Syringe IV (20:56)
[2021-08-30] MEDS: Paroxetine 20 MG Tablet 40 MG PO (20:57)
[2021-08-30] MEDS: Acetaminophen 325 MG Tablet 650 MG PO (21:14)
[2021-08-31] VITALS (11 sets, daily range): BP systolic 135–187; BP diastolic 58–102; PULSE 63–72; RESP 16–18; TEMP 36.3–36.6; O2SAT 89–97
[2021-08-31] MEDS: Senna/Docusate Sodium 1 Tablet 2 TABLET PO (03:39)
[2021-08-31] MEDS: Acetaminophen 325 MG Tablet 650 MG PO (03:39)
[2021-08-31] MEDS: 0.9% Saline Lock 10 ML Syringe IV ×3 (03:49→10:06)
[2021-08-31] MEDS: hydrALAZINE 20 MG/ML Vial 5 MG IV ×2 (03:49→23:48)
[2021-08-31] MEDS: HYDROmorphone 0.5 MG/0.5 ML SYRINGE IV ×2 (04:39→23:48)
--- NOTE | 2021-08-31 08:00 | US_ITS ---
STUDY: ABDOMINAL ULTRASOUND - RIGHT UPPER QUADRANT REASON FOR VISIT: Female, 81 years old cirrhosis, include gallbladder TECHNIQUE: Ultrasound evaluation of the right upper quadrant was performed with real-time and static aguila-scale imaging. TECHNICAL QUALITY: Adequate. COMPARISON: Comparison is made with prior CT scan abdomen and pelvis dated 08/28/2021. FINDINGS: Liver: The liver measures 14.2 cm. There is increased echogenicity consistent with fatty infiltration. The bile ducts are dilated. There is hepatic color flow. The direction of portal flow is hepatopetal. There is no demonstrated mass lesion. Gallbladder: The patient is status post cholecystectomy. Common Bile Duct (C.B.D.): The common bile duct is dilated and measures 8 mm. Pancreas: Normal size of the head, body and tail of the pancreas. There is normal echogenicity of the pancreas. There is no demonstrated pancreatic mass or cyst. The pancreatic duct is dilated measuring 7 mm. Right Kidney: There is atrophy of the right kidney. The right kidney measures 8.5 cm x 4.2 cm x 4.1 cm. There is thinning of the renal cortex. The right cortex measures 0.9 cm. There is no demonstrated renal mass or cyst. There is no right hydronephrosis. US/Abdomen Limited IMPRESSION: Fatty infiltration of the liver. The patient is status post cholecystectomy. Dilated intra and extra hepatic biliary ducts as well as the pancreatic Electronically Signed: Rodney Mo MD at 10:32 EST , Service support ,
[2021-08-31] MEDS: guaiFENesin 1,200 MG Tablet 1200 MG PO ×2 (10:05→21:41)
[2021-08-31] MEDS: Enoxaparin 30 MG/0.3 ML Syringe SC (10:05)
--- NOTE | 2021-08-31 11:03 | CASEMGMT ---
Addendum entered by Zamzam Perkins 08/31/21 13:12: SW received message from Prabha at [facility] stating they cannot accept pt. SW in to speak with pt. Pt's sister present in room. SW spoke with pt and her sister Solo about SNF. SW informed Prabha and Solo that both [facility] and [facility] cannot accept pt. Solo states to try either [facility] or [facility]. Pt agreeable. ALEXIS placed a call to Gudelia at [facility] and left message regarding referral. ALEXIS placed a call to Saloni at [facility] and left message regarding referral. ALEXIS faxed referral to both [facility] and [facility]. Plan: SNF pending acceptance and pre-cert Original Note: Social Work Note ALEXIS placed a call to Prabha at [facility] and spoke with Prabha in admissions. Prabha states she thought pt was denied but will check regarding pt's referral and then call this worker back. Plan: SNF pending acceptance Zamzam Perkins GAS STATION OPERATOR, FORENSIC LOCKSMITH
--- NOTE | 2021-08-31 13:34 | MRI_ITS ---
STUDY: MRI ABDOMEN WITHOUT CONTRAST REASON FOR EXAM: Female, 81 years old. Biliary Dilation, ABD PAIN TECHNIQUE: Standardized fat and water weighted pulse sequences were obtained in all 3 orthogonal planes. 3-D postprocessing images were reviewed. COMPARISON: None. FINDINGS: The visualized lung bases are unremarkable. The visualized portions of the heart are within normal limits. Normal liver. There are surgical clips in the gallbladder fossa consistent with a prior cholecystectomy. There is dilatation of the common bile duct measuring up to 1 cm as well as the main pancreatic duct up to 5 mm. There is an abrupt cut off for both of these ducts in the distal aspect near the ampulla. No obvious mass or stone is seen. There is central intrahepatic biliary ductal dilatation as well. Normal spleen. Normal bilateral adrenal glands. Scattered subcentimeter bilateral renal cysts. Normal visualized stomach. Normal small intestine. Normal colon. There is diffuse atherosclerotic calcification of the abdominal aorta with elongation and tortuosity. Normal inferior vena cava. Normal retroperitoneum. Normal abdominal wall. There are diffuse degenerative changes of the visualized lumbar spine. MRI/Abdomen without Contrast IMPRESSION: Moderate dilatation of the extra and intrahepatic biliary ducts as well as the main pancreatic duct. This may be in part due to reservoir effect status post cholecystectomy, however there is an abrupt cut off seen at the distal common bile duct and main pancreatic duct. No obvious stone or mass is seen. Consider ERCP to assess for occult stone or ampullary mass. Electronically Signed: Denis Nazario MD at 20:54 EST Tel , Service support ,
--- NOTE | 2021-08-31 13:36 | PN.HOSP_ITS ---
Subjective Subjective Patient is a 81-year-old lady admitted with shortness of breath Objective Data Objective Data Vital Signs: Vital Signs Temp Pulse Resp BP Pulse Ox 97.9 F 71 18 142/58 H 97 08/31/21 09:42 08/31/21 09:42 08/31/21 09:42 08/31/21 09:42 08/31/21 09:42 Oxygen Flow Rate (L/min) 2 Oxygen Delivery Method Nasal Cannula Weight: 65.091 kg Body Mass Index (BMI) 25.8 Intake & Output: Intake and Output for Last 24 Hours 08/29/21 08/30/21 08/31/21 23:59 23:59 23:59 Intake Total 299.75 / 549.75 400 / 400 100 / 100 Balance 299.75 / 549.75 400 / 400 100 / 100 Lab / Micro Data Result Diagrams: 08/29/21 05:50 08/29/21 05:50 Micro: Microbiology 08/31/21 10:15 Sputum, Expectorated/Coughed Gram Stain - Final 08/27/21 11:15 Blood Culture (Wb) - Right Forearm Blood Culture - Preliminary No growth in 48 hours. 08/27/21 11:08 Blood Culture (Wb) - Left Wrist Blood Culture - Preliminary No growth in 48 hours. 08/27/21 21:00 Urine, Clean Catch Streptococcus pneumoniae Antigen (M - Final 08/27/21 21:00 Urine, Clean Catch Legionella Antigen - Final 08/27/21 Unknown Mucosa - Nasopharyngeal Respiratory Panel (PCR) - Final 08/27/21 12:30 Nasal Secretion SARS-CoV-2 Antigen (Rapid) - Final 08/27/21 12:30 Mucosa - Nasopharyngeal Influenza Types A,B Direct FA (HERMAN) - Final Radiography Diagnostic Testing: Radiology Impression Abdomen Ultrasound 08/31/21 08:00 IMPRESSION: Fatty infiltration of the liver. The patient is status post cholecystectomy. Dilated intra and extra hepatic biliary ducts as well as the pancreatic Electronically Signed: Rodney Mo MD at 10:32 EST , Service support , Physical Exam Narrative GENERAL: In no apparent distress HEENT: Atraumatic; EYES; Anicteric, Normal Conjunctiva NECK; supple, normal thyroid, RESPIRATORY: Diminished to auscultation CARDIOVASCULAR: Regular S1 S2, GI: soft, normoactive bowel sounds, : No Renal angle tenderness; EXTREMITIES: No edema, no clubbing, MUSCULOSKELETAL: no muscle waisting NEURO: Awake; no lateralizing signs. SKIN: No Rash PSYCH; Flat affect Assessment & Plan Assessment/Plan (1) Abdominal pain: (2) Enteritis: PLAN: Patient is a 81-year-old lady admitted with shortness of breath 1. Acute hypoxic and hypercapnic respiratory failure ?Secondary to suspected COPD exacerbation. Admitted to regular nursing floor managed with steroid bronchodilator treatments and supplemental oxygen 2. Chronic abdominal pain ?[place] to be secondary to chronic narcotic use. Patient was seen in consultation by GI liver ultrasound as well as MRCP recommended test ordered 3. Biliary dilatation ?Patient to undergo MRCP 4. Hypertension - Blood pressure controlled, home medications continued with dose adjustment as needed 5. Dyslipidemia -Patient is on statin therapy, continued at home dose 6. Acute enteritis ?Managed with Zosyn 7. Hypothyroidism - Patient is on levothyroxine home dose continued 8. Depression with anxiety ?Patient is on SSRI as well as lorazepam as needed 9. DVT prophylaxis ?Lovenox Charges/Coding Visit Charges Inpatient E&M: 31632 Subs Hosp L2
[2021-08-31] MEDS: LORazepam 1 MG Tablet PO (13:50)
--- NOTE | 2021-08-31 16:15 | CHAPLAIN ---
Type of Pastoral Visit _x__ Initial Visit ___ Follow-up Visit ___ On-call Visit ___ General Patient Visit ___ Spiritual Assessment ___ Family Conference ___ Bereavement ___ Rapid Response ___ Code Blue ___ Other (describe below) Pastoral Care Referral From _x__ Patient ___ Family ___ Nurse ___ Physician ___ Regional Sales Representative ___ [employer] Consultant ___ Other (describe below) Sacrament/Intervention _x__ Active listening ___ Anointing ___ Sikh ___ Bereavement ___ Communion _x__ Lynn exploration ___ _x__ Life review _x__ Prayer ___ Reconciliation ___ Sacrament of Sick _x__ Supportive presence ___ Wedding ___ Other (describe below) Pastoral Comments patient is seeking support as she states I was just told a possible diagnosis and I'm not sure what it will mean for me; pt states that her only family support is a sister who lives with her and a brother in [place] who was just here and left; pt has lost her and son in ; pt does have a pentecostal that is supportive and praying; pt has decisions to make and is unsure about that; pt is talkative and welcoming of prayer and care
--- NOTE | 2021-08-31 16:39 | CASEMGMT ---
Social Work Note SW received message from Gudelia at [facility] stating they cannot accept pt at this time as they are not taking admissions due to staffing. ALEXIS will follow up with referral to [facility] tomorrow. Plan: SNF Zamzam Perkins MANUFACTURING PROCESS ENGINEER, SECURITY PROJECT MANAGER
[2021-08-31] MEDS: Atenolol 100 MG Tablet PO (21:41)
[2021-08-31] MEDS: Pravastatin 40 MG Tablet PO (21:41)
[2021-08-31] MEDS: Paroxetine 20 MG Tablet 40 MG PO (21:41)
[2021-08-31] MEDS: Aspirin 81 MG TAB.CHEW PO (21:42)
[2021-08-31] MEDS: Levothyroxine 112 MCG Tablet PO (21:42)
[2021-08-31] MEDS: hydroCHLOROthiazide 25 MG Tablet PO (21:42)
[2021-09-01 02:20] VITALS: BP 138/60; PULSE 68; RESP 18; TEMP 36.4; O2SAT 95
[2021-09-01 05:06] LABS: Absolute Lymphocyte Count 0.37 X10^3/uL (0.83-4.51); Absolute Neutrophil Count 9.7 X10^3/uL (2.0-7.7); Basophil# 0.01 X10^3/uL; Basophil% 0.1 % (0-1); Hematocrit 48.3 % (37-47); Hemoglobin 15.4 g/dL (12.0-15.0); Lymphocyte # 0.37 X10^3/ul (0.83-4.51); Lymphocyte % 3.6 % (19-41); Mean Corp Hgb Conc 31.9 g/dL (32-36); Mean Corpuscular Hgb 33.1 pg (27.0-32.0); Mean Corpuscular Volume 103.9 fL (81-99); Mean Platelet Vol. 9.7 fl (6.2-12.0); Monocyte# 0.29 X10^3/uL; Monocyte% 2.8 % (0-10); NRBC Flagged by Analyzer 0 % (0-5); POSITIVE DIFFERENTIAL YES; Platelet Count 376 K/mm3 (150-450); RBC Distribution Width CV 13.5 % (11.6-14.6); Red Blood Count 4.65 M/mm3 (4.2-5.4); White Blood Count 10.4 K/mm3 (4.4-11.0)
[2021-09-01 05:17] LABS: Differential Indicated SCAN CRITERIA MET
[2021-09-01 05:29] LABS: Anion Gap 6 (5-15); BUN 44 mg/dL (7-18); BUN/Creat Ratio 33.8 RATIO (10-20); Calcium,Total 9.2 mg/dL (8.5-10.1); Chloride 103 mmol/L (98-107); EST Glomerular Filtration Rate 42 mL/min (>60); Est Glom Filt Rate - Afr Amer 51 mL/min (>60); Estimated Creatinine Clearance 27.75 ml/min; Glucose 158 mg/dL (74-106); Magnesium 2.1 mg/dL (1.6-2.6); Potassium 3.8 mmol/L (3.5-5.1); Sodium Level 140 mmol/L (136-145)
[2021-09-01 06:51] VITALS: O2SAT 94
--- NOTE | 2021-09-01 07:21 | PN.HOSP_ITS ---
Subjective Subjective Patient seen breathing improved. MRI ordered the day prior results are as below Objective Data Objective Data Vital Signs: Vital Signs Temp Pulse Resp BP Pulse Ox 97.6 F L 68 18 138/60 H 95 09/01/21 02:20 09/01/21 02:20 09/01/21 02:20 09/01/21 02:20 09/01/21 02:20 Oxygen Flow Rate (L/min) 1 Oxygen Delivery Method Nasal Cannula Weight: 65.091 kg Body Mass Index (BMI) 25.8 Intake & Output: Intake and Output for Last 24 Hours 08/30/21 08/31/21 09/01/21 23:59 23:59 23:59 Intake Total 400 / 400 610 / 610 50 / 50 Balance 400 / 400 610 / 610 50 / 50 Lab / Micro Data Result Diagrams: 09/01/21 04:48 09/01/21 04:48 Labs: Laboratory Results - last 24 hr 09/01/21 04:48: WBC 10.4, RBC 4.65, Hgb 15.4 H, Hct 48.3 H, MCV 103.9 H, MCH 33.1 H, MCHC 31.9 L, RDW Std Deviation 52.0 H, RDW Coeff of Rene 13.5, Plt Count 376, MPV 9.7, Immature Gran % (Auto) 0.500, Neut % (Auto) 93.0 H, Lymph % (Auto) 3.6 L, [place] % (Auto) 2.8, Eos % (Auto) 0.0, Baso % (Auto) 0.1, Absolute Neuts (auto) 9.7 H, Absolute Lymphs (auto) 0.37 L, Nucleated RBC % 0 09/01/21 04:48: Sodium 140, Potassium 3.8, Chloride 103, Carbon Dioxide 31.0, Anion Gap 6, BUN 44 H, Creatinine 1.30 H, Estim Creat Clear Calc 27.75, Est GFR (MDRD) Af Amer 51 L, Est GFR (MDRD) Non-Af 42 L, BUN/Creatinine Ratio 33.8 H, Glucose 158 H, Calcium 9.2, Magnesium 2.1 Micro: Microbiology 08/31/21 10:15 Sputum, Expectorated/Coughed Gram Stain - Final 08/27/21 11:15 Blood Culture (Wb) - Right Forearm Blood Culture - Preliminary No growth in 48 hours. 12/09/21 11:08 Blood Culture (Wb) - Left Wrist Blood Culture - Preliminary No growth in 48 hours. 08/27/21 21:00 Urine, Clean Catch Streptococcus pneumoniae Antigen (M - Final 08/27/21 21:00 Urine, Clean Catch Legionella Antigen - Final 08/27/21 Unknown Mucosa - Nasopharyngeal Respiratory Panel (PCR) - Final 08/27/21 12:30 Nasal Secretion SARS-CoV-2 Antigen (Rapid) - Final 08/27/21 12:30 Mucosa - Nasopharyngeal Influenza Types A,B Direct FA (HERMAN) - Final Radiography Diagnostic Testing: Radiology Impression Abdomen Ultrasound 08/31/21 08:00 IMPRESSION: Fatty infiltration of the liver. The patient is status post cholecystectomy. Dilated intra and extra hepatic biliary ducts as well as the pancreatic Electronically Signed: Rodney Mo MD at 10:32 EST , Service support , Abdomen MRI 08/31/21 13:34 IMPRESSION: Moderate dilatation of the extra and intrahepatic biliary ducts as well as the main pancreatic duct. This may be in part due to reservoir effect status post cholecystectomy, however there is an abrupt cut off seen at the distal common bile duct and main pancreatic duct. No obvious stone or mass is seen. Consider ERCP to assess for occult stone or ampullary mass. Electronically Signed: Denis Nazario MD at 20:54 EST Tel , Service support , Physical Exam Narrative GENERAL: In no apparent distress HEENT: Atraumatic; EYES; Anicteric, Normal Conjunctiva NECK; supple, normal thyroid, RESPIRATORY: Diminished to auscultation CARDIOVASCULAR: Regular S1 S2, GI: soft, normoactive bowel sounds, : No Renal angle tenderness; EXTREMITIES: No edema, no clubbing, MUSCULOSKELETAL: no muscle waisting NEURO: Awake; no lateralizing signs. SKIN: No Rash PSYCH; Flat affect Assessment & Plan Assessment/Plan (1) Abdominal pain: (2) Enteritis: PLAN: Patient is a 81-year-old lady admitted with shortness of breath 1. Acute hypoxic and hypercapnic respiratory failure ?Secondary to suspected COPD exacerbation. Admitted to regular nursing floor managed with steroid bronchodilator treatments and supplemental oxygen -09/01/2021; breathing improving 2. Chronic abdominal pain ?[place] to be secondary to chronic narcotic use. Patient was seen in consultation by GI liver ultrasound as well as MRCP recommended test ordered -09/01/2021; MRI demonstrated Moderate dilatation of the extra and intrahepatic biliary ducts as well as the main pancreatic duct. This may be in part due to reservoir effect status post cholecystectomy, however there is an abrupt cut off seen at thedistal common bile duct and main pancreatic duct. No obvious stone or massis seen. Consider ERCP to assess for occult stone or ampullary mass. -We'll defer any decision regarding MRCP to GI 3. Biliary dilatation ?Patient to undergo MRCP 4. Hypertension - Blood pressure controlled, home medications continued with dose adjustment as needed 5. Dyslipidemia -Patient is on statin therapy, continued at home dose 6. Acute enteritis ?Managed with Zosyn 7. Hypothyroidism - Patient is on levothyroxine home dose continued 8. Depression with anxiety ?Patient is on SSRI as well as lorazepam as needed 9. DVT prophylaxis ?Lovenox Charges/Coding Visit Charges Inpatient E&M: 16342 Subs Hosp L2
[2021-09-01 08:57] VITALS: BP 134/52; PULSE 58; RESP 18; TEMP 36; O2SAT 100
[2021-09-01] MEDS: Enoxaparin 30 MG/0.3 ML Syringe SC (09:04)
[2021-09-01] MEDS: 0.9% Saline Lock 10 ML Syringe IV (09:05)
--- NOTE | 2021-09-01 10:01 | CASEMGMT ---
Social Work Note ALEXIS received call from pt's sister Solo stating pt called her this morning stating she was going to be discharged. ALEXIS informed Solo that discharge is pending on this worker finding an accepting SNF. ALEXIS informed Solo that [facility] is not taking admissions right now so this worker is waiting to hear back from [facility]. Solo states that if no SNF in [place] can accept pt, she may look into [facility] for pt. ALEXIS informed Solo that this worker will call her when this worker hears back from [facility]. ALEXIS placed a call to Saloni at [facility] and left message regarding referral. SW waiting for call back from [facility]. Plan: SNF pending acceptance Zamzam Perkins MAKING DEPARTMENT PREPARER, BULLET MAKER
--- NOTE | 2021-09-01 11:17 | CASEMGMT ---
Social Work Note ALEXIS received call from Saloni at [facility] stating they can accept pt today. Saloni asked about pt's vaccination status. ALEXIS informed Saloni that this worker is not sure, will need to check with pt. Saloni states understanding, also states pt will need another COVID test. SW in to speak with pt. ALEXIS informed pt that [facility] has accepted pt and pt will be discharged there today. Pt states understanding, SW asked pt about her vaccination status. Pt states she has been vaccinated. ALEXIS placed a call back to Saloni at [facility] and updated her on pt's vaccination status. ALEXIS updated physician that pt can discharge to SNF today. Plan: [facility] skilled under convalescent stay today Zamzam Perkins VICE PRESIDENT OF RECRUITING, [employer]ER [employer]
--- NOTE | 2021-09-01 11:31 | PCM.DC.SUM ---
Providers Date of Admission: 08/27/21 Primary Care Physician: Dr. Mian Pal MD Consultations 08/28/21 12:28 Consult: Gastroenterology Routine Consulting Provider: Ra Davehsaan Reason for Consult: CT with enteritis EMERGENT Consult: No MD Notified: Yes Date Notified: 08/28/21 Time Notified: 14:06 Method of Notification: Text Reason For Visit: ACUTE HYPOXIC RESPIRATORY FAILURE Diagnosis Discharge Diagnosis (1) Abdominal pain: Status: Acute Code(s): R10.9 - Unspecified abdominal pain (2) Enteritis: Status: Acute Code(s): K52.9 - Noninfective gastroenteritis and colitis, unspecified Medications at Discharge Home Medications pravastatin 40 mg PO QHS 09/02/14 atenolol 100 mg PO QHS 04/17/18 hydrochlorothiazide 25 mg PO QHS 04/17/18 aspirin 81 mg PO QHS 08/01/18 levothyroxine 112 mcg PO QHS 08/27/21 paroxetine HCl 40 mg PO QHS 08/27/21 acetaminophen [Tylenol] 650 mg PO Q6H PRN PRN #0 tab 09/01/21 albuterol sulfate 2.5 mg INHALATION Q2H PRN PRN #0 ml 09/01/21 guaifenesin 20 ml PO Q4H PRN PRN #0 ml 09/01/21 lorazepam 1 mg PO BID PRN #6 tab 09/01/21 sennosides-docusate sodium [Stool Softener-Stimulant Laxat] 2 tab PO BID PRN PRN #0 tab 09/01/21 Hospital Course Summary of Care Provided Minutes Spent on Discharge: 45 Hospital Course: Patient is a 81-year-old lady admitted with shortness of breath 1. Acute hypoxic and hypercapnic respiratory failure ?Secondary to suspected COPD exacerbation. Admitted to regular nursing floor managed with steroid bronchodilator treatments and supplemental oxygen -09/01/2021; breathing improving 2. Chronic abdominal pain ?[place]y to be secondary to chronic narcotic use. Patient was seen in consultation by GI liver ultrasound as well as MRCP recommended test ordered -09/01/2021; MRI demonstrated Moderate dilatation of the extra and intrahepatic biliary ducts as well as the main pancreatic duct. This may be in part due to reservoir effect status post cholecystectomy, however there is an abrupt cut off seen at thedistal common bile duct and main pancreatic duct. No obvious stone or massis seen. Consider ERCP to assess for occult stone or ampullary mass. -We'll defer any decision regarding MRCP to GI -Case was discussed with Dr. Acosta with GI patient to follow-up with him as outpatient 3. Biliary dilatation ?Patient to undergo MRCP 4. Hypertension - Blood pressure controlled, home medications continued with dose adjustment as needed 5. Dyslipidemia -Patient is on statin therapy, continued at home dose 6. Acute enteritis ?Managed with Zosyn 7. Hypothyroidism - Patient is on levothyroxine home dose continued 8. Depression with anxiety ?Patient is on SSRI as well as lorazepam as needed 9. DVT prophylaxis ?Lovenox Physical Exam Narrative GENERAL: In no apparent distress HEENT: Atraumatic; EYES; Anicteric, Normal Conjunctiva NECK; supple, normal thyroid, RESPIRATORY: Diminished to auscultation CARDIOVASCULAR: Regular S1 S2, GI: soft, normoactive bowel sounds, : No Renal angle tenderness; EXTREMITIES: No edema, no clubbing, MUSCULOSKELETAL: no muscle waisting NEURO: Awake; no lateralizing signs. SKIN: No Rash PSYCH; Flat affect Weight / BMI Weight Weight: 65.091 kg Body Mass Index (BMI) 25.8 ABG / Lab / Microbiology Data Result Diagrams: 09/01/21 04:48 09/01/21 04:48 Laboratory: Laboratory Results - last 24 hr 09/01/21 04:48: WBC 10.4, RBC 4.65, Hgb 15.4 H, Hct 48.3 H, MCV 103.9 H, MCH 33.1 H, MCHC 31.9 L, RDW Std Deviation 52.0 H, RDW Coeff of Rene 13.5, Plt Count 376, MPV 9.7, Immature Gran % (Auto) 0.500, Neut % (Auto) 93.0 H, Lymph % (Auto) 3.6 L, Plumas % (Auto) 2.8, Eos % (Auto) 0.0, Baso % (Auto) 0.1, Absolute Neuts (auto) 9.7 H, Absolute Lymphs (auto) 0.37 L, Nucleated RBC % 0 09/01/21 04:48: Sodium 140, Potassium 3.8, Chloride 103, Carbon Dioxide 31.0, Anion Gap 6, BUN 44 H, Creatinine 1.30 H, Estim Creat Clear Calc 27.75, Est GFR (MDRD) Af Amer 51 L, Est GFR (MDRD) Non-Af 42 L, BUN/Creatinine Ratio 33.8 H, Glucose 158 H, Calcium 9.2, Magnesium 2.1 Microbiology: Microbiology 08/31/21 10:15 Sputum, Expectorated/Coughed Gram Stain - Final 08/27/21 11:15 Blood Culture (Wb) - Right Forearm Blood Culture - Preliminary No growth in 48 hours. 08/27/21 11:08 Blood Culture (Wb) - Left Wrist Blood Culture - Preliminary No growth in 48 hours. 08/27/21 21:00 Urine, Clean Catch Streptococcus pneumoniae Antigen (M - Final 08/27/21 21:00 Urine, Clean Catch Legionella Antigen - Final 08/27/21 Unknown Mucosa - Nasopharyngeal Respiratory Panel (PCR) - Final 08/27/21 12:30 Nasal Secretion SARS-CoV-2 Antigen (Rapid) - Final 08/27/21 12:30 Mucosa - Nasopharyngeal Influenza Types A,B Direct FA (HERMAN) - Final Radiography Diagnostic Testing: Radiology Impression Abdomen MRI 08/31/21 13:34 IMPRESSION: Moderate dilatation of the extra and intrahepatic biliary ducts as well as the main pancreatic duct. This may be in part due to reservoir effect status post cholecystectomy, however there is an abrupt cut off seen at the distal common bile duct and main pancreatic duct. No obvious stone or mass is seen. Consider ERCP to assess for occult stone or ampullary mass. Electronically Signed: Denis Nazario MD at 20:54 EST Tel , Service support , D/C Instructions Discharge Diet: No restrictions Discharge Activity: Return to Normal Activity Call your doctor if you observe: Fever of 101 or Higher, Shortness of breath, Fainting spells and Chest pain Meaningful Use Info Meaningful Use Diagnoses (Choose all that apply): None applicable Discharge Plan Admission Admit Date/Time: 08/27/21 13:28 Attending Provider: Tonio Hernandez Primary Care Provider: Mian Pal Consulting Providers: Felix Acosta Discharge Orders/Prescriptions Prescriptions: New guaifenesin 100 mg/5 mL Liquid 20 ml PO Q4H PRN PRN (Reason: COUGH) Qty: 0 RF: 0 acetaminophen [Tylenol] 325 mg Tablet 650 mg PO Q6H PRN PRN (Reason: Pain Score 1-10/Temp > 100.7 F) Qty: 0 RF: 0 albuterol sulfate 2.5 mg /3 mL (0.083 %) Solution For Nebulization 2.5 mg inhalation Q2H PRN PRN (Reason: Shortness of Breath/Wheezing) Qty: 0 RF: 0 sennosides-docusate sodium [Stool Softener-Stimulant Laxat] 8.6-50 mg Tablet 2 tab PO BID PRN PRN (Reason: Constipation) Qty: 0 RF: 0 lorazepam 1 mg Tablet 1 mg PO BID PRN (Reason: Anxiety) Qty: 6 RF: 0 Continued pravastatin 40 MG tablet 40 mg PO QHS RF: 0 atenolol 100 MG tablet 100 mg PO QHS RF: 0 hydrochlorothiazide 25 MG tablet 25 mg PO QHS RF: 0 aspirin 81 MG tablet,chewable 81 mg PO QHS RF: 0 paroxetine HCl 40 mg tablet 40 mg PO QHS RF: 0 levothyroxine 112 mcg tablet 112 mcg PO QHS RF: 0 Discontinued lorazepam 1 mg tablet 1 mg PO BID PRN (Reason: Anxiety) RF: 0 Referrals / Follow Up: Mian Pal MD [Primary Care Provider] - Within 1 Month Felix Acosta DO [STAFF PHYSICIAN] - Within 2 Weeks Disposition Disposition (needs filled in before D/C Order can be placed): [facility] Charges/Coding Visit Charges Inpatient E&M: 64300 Disch Hosp
--- NOTE | 2021-09-01 11:47 | TREXTCAR_ITS ---
Diet 08/31/21 10:02 Diet: Cardiac - Heart Healthy Dietary Modifications:: Sodium Restricted Is pt able to select menu?: Yes Diet Comments: until ultrasound is complete Routine Orders/Code Status Code Status: DNRCC-A Therapies Physical Therapy: Eval and Treat Occupational Therapy: Eval and Treat Problem/Diagnosis (1) Abdominal pain: Status: Acute (2) Enteritis: Status: Acute Allergies/Procedures Done in Hospital Allergies Corticosteroids (Glucocorticoids) Allergy (Verified 04/08/21 14:38) Swelling codeine Adverse Reaction (Verified 04/08/21 14:38) Other cortisone [Cortisone] Adverse Reaction (Verified 04/08/21 14:38) Swelling morphine Adverse Reaction (Verified 04/08/21 14:38) Other Type of Care/Length of Stay Estimated LOS: Convalescent Care Less Than 30 days Type of Care Needed: Skilled Rehab Potential: Good Prognosis: Good Additional Orders/Day of Discharge Day of Discharge: 09/01/21 Dietary and Speech Recommendations Dietitian Recommendations/Changes: Will change diet to Cardiac/Sodium restricted d/t pmhx Monitor need for carb control restriction if gluc remains elevated Monitor need for oral nutrition supplement pending continued po intake and wt trends. Discharge Plan Admission Admit Date/Time: 08/27/21 13:28 Attending Provider: Tonio Hernandez Primary Care Provider: Mian Pal Consulting Providers: Felix Acosta Discharge Orders/Prescriptions Prescriptions: New guaifenesin 100 mg/5 mL Liquid 20 ml PO Q4H PRN PRN (Reason: COUGH) Qty: 0 RF: 0 acetaminophen [Tylenol] 325 mg Tablet 650 mg PO Q6H PRN PRN (Reason: Pain Score 1-10/Temp > 100.7 F) Qty: 0 RF: 0 albuterol sulfate 2.5 mg /3 mL (0.083 %) Solution For Nebulization 2.5 mg inhalation Q2H PRN PRN (Reason: Shortness of Breath/Wheezing) Qty: 0 RF: 0 sennosides-docusate sodium [Stool Softener-Stimulant Laxat] 8.6-50 mg Tablet 2 tab PO BID PRN PRN (Reason: Constipation) Qty: 0 RF: 0 lorazepam 1 mg Tablet 1 mg PO BID PRN (Reason: Anxiety) Qty: 6 RF: 0 Continued pravastatin 40 MG tablet 40 mg PO QHS RF: 0 atenolol 100 MG tablet 100 mg PO QHS RF: 0 hydrochlorothiazide 25 MG tablet 25 mg PO QHS RF: 0 aspirin 81 MG tablet,chewable 81 mg PO QHS RF: 0 paroxetine HCl 40 mg tablet 40 mg PO QHS RF: 0 levothyroxine 112 mcg tablet 112 mcg PO QHS RF: 0 Discontinued lorazepam 1 mg tablet 1 mg PO BID PRN (Reason: Anxiety) RF: 0 Referrals / Follow Up: Mian Pal MD [Primary Care Provider] - Within 1 Month FriendFelix DO [STAFF PHYSICIAN] - Within 2 Weeks Disposition Disposition (needs filled in before D/C Order can be placed): Long-Term Facility
--- NOTE | 2021-09-01 12:30 | CASEMGMT ---
Social Work Note ALEXIS faxed completed discharge paperwork to [facility] including transfer to extended care facility, signed medication list, any scripts, COVID test/tool, and Convalescent 7000. Original in SNF folder and copy on pt's chart. ALEXIS completed convalescent 7000 in [facility]ENS. Original in SNF folder and copy on pt's chart. ALEXIS spoke with RN, pt to transport via cot. SW accessed trip assist and arrange transportation via cot for 2:00pm. Transportation form completed and placed on SNF Folder and copy on pt's chart. SW updated pt on transportation time. ALEXIS placed a call to Saloni at [facility] and left message updating her on transportation time. ALEXIS placed a call to pt's sister Solo and updated her on acceptance to [facility], discharge to [facility], and transportation time. Solo states understanding. ALEXIS asked director global market research to update RN on transportation time. Plan: [facility] skilled under convalescent stay with [facility] transporting pt via cot at 2:00pm Zamzam Perkins [employer], [employer] ADMINISTRATOR
[2021-09-01 13:34] VITALS: BP 161/72; PULSE 64; RESP 18; TEMP 36.6; O2SAT 99
--- NOTE | 2021-09-01 13:55 | NURSING ---
REPORT CALLED TO EDWIN GOODE AT [facility]
--- NOTE | 2021-09-01 14:14 | NURSING ---
verbal report given to transport.
== END 2021-09-01 14:58 | disposition skilled nursing facility (03) | DRG 190 ==
LOC: ED 13:28 → MS3 14:13
PROVIDERS: Admitting Provider Internal Medicine; Emergency Provider Emergency Medicine; PCP Family Medicine; Visit Provider Internal Medicine
DX: J44.1 Chronic obstructive pulmonary disease with (acute) exacerbation (principal); J96.01 Acute respiratory failure with hypoxia; J96.02 Acute respiratory failure with hypercapnia; E87.2 Acidosis; E87.3 Alkalosis; E87.6 Hypokalemia; K52.9 Noninfective gastroenteritis and colitis, unspecified; G89.29 Other chronic pain; K83.8 Other specified diseases of biliary tract; Z20.822 Contact with and (suspected) exposure to COVID-19; I12.9 Hypertensive chronic kidney disease with stage 1 through stage 4 chronic kidney disease, or unspecified chronic kidney disease; N18.32 Chronic kidney disease, stage 3b; M06.9 Rheumatoid arthritis, unspecified; E78.5 Hyperlipidemia, unspecified; E03.9 Hypothyroidism, unspecified; F32.A Depression, unspecified; F41.9 Anxiety disorder, unspecified; H91.93 Unspecified hearing loss, bilateral; F17.210 Nicotine dependence, cigarettes, uncomplicated; Z99.81 Dependence on supplemental oxygen; Z79.82 Long term (current) use of aspirin; Z79.891 Long term (current) use of opiate analgesic; Z79.890 Hormone replacement therapy; Z79.899 Other long term (current) drug therapy; Z86.73 Personal history of transient ischemic attack (TIA), and cerebral infarction without residual deficits; Z90.49 Acquired absence of other specified parts of digestive tract; Z96.642 Presence of left artificial hip joint
CPT/HCPCS: 36415; 36600; 71045; 74177; 74181; 76705; 80048; 80053; 82803; 83605; 83735; 84100; 84443; 85025; 87040; 87070; 87205; 87426; 87449; 87633; 87804; 93005; 94640; 94667; 94668; 97110; 97162; 97166; 97530; 97535; 97802; 99251; 99285; 99406; J7040; J7050; Q9967; A4216; G0463

== ENCOUNTER 2021-11-25 06:15 | Inpatient (IN) | payer MEDICARE, OTHER, SELFPAY ==
[2021-11-25] VITALS (13 sets, daily range): BP systolic 114–158; BP diastolic 58–71; PULSE 70–108; RESP 16–22; TEMP 36.4–37; O2SAT 89–100; BMI 27.3; BMI 25.4
--- NOTE | 2021-11-25 06:29 | RAD_ITS ---
EXAM: XR Chest, 1 View CLINICAL INDICATION: 81 years old, Female; chest pain TECHNIQUE: Frontal view of the chest. This report was created using [employer] report generation technology. COMPARISON: XR Chest dated 08/27/2021 FINDINGS: Lungs and pleural spaces: Mild bibasilar infiltrates or atelectasis. No pneumothorax. No effusion. Heart: Unremarkable. Cardiac silhouette not enlarged. Mediastinum: Central airways and mediastinal contour are unremarkable. Bones/joints: Degenerative changes both shoulders. Postop changes left shoulder. Soft tissues: Unremarkable. Vasculature: Calcified aorta. RAD/Chest 1 View (Portable) IMPRESSION: Mild bibasilar infiltrates or atelectasis. Electronically Signed: Abdirahman Jo MD at 7:32 EST ,
--- NOTE | 2021-11-25 06:29 | EKG12_ITS ---
Test Reason : MED CLEARANCE Blood Pressure : / mmHG Vent. Rate : 088 BPM Atrial Rate : 088 BPM P-R Int : 136 ms QRS Dur : 080 ms QT Int : 358 ms P-R-T Axes : 107 026 090 degrees QTc Int : 433 ms Normal sinus rhythm Nonspecific ST and T wave abnormality Abnormal ECG Confirmed by CHAD VELEZ, PATRICK ([id number]), assistant editor DELPHINE GOODRICH ([id number]) on 11/26/2021 10:11:36 AM Referred By: GERBER Confirmed By:PATRICK BONILLA MD
--- NOTE | 2021-11-25 06:31 | EDS_ITS ---
HPI HPI - Fall History of Present Illness Chief Complaint: Fall Narrative Narrative: 81-year-old female presenting with a fall. Patient is a poor informant. She appears tired but falls asleep during interview process. She has a skin tear to the left forearm. Patient believes she got out of bed to quickly. Patient states that she did not have a head injury or loss of consciousness. She denies neck, back, hip pain. She states she does not really have pain anywhere except for her skin tear is on the left forearm. She states she does not have chest pain or shortness of breath when she is resting. She does state that she is short of breath anytime she gets up and walks. She states has been chronic for months. It is noted that her pulse ox is low at 89% and she states that it is chronically low in the low 90s. She states she does not have home O2 set up for her at home. She denies fever, chills, cough. She denies nausea, vomiting. She reports that she is eating and drinking normally. She reports normal urine and stool. She does not have any abdominal pain. Patient states he was just taken home from snf on Tuesday. She has had no previous falls since being home. Her brother reported to EMS that he could not care for her at their home anymore. [facility] Medical History Abdominal pain Anxiety Chronic bronchitis Chronic respiratory failure with hypercapnia Common bile duct dilatation CVA (cerebral vascular accident) Depression Erythrocytosis Hearing loss, left Hearing loss, right Hx of ectopic Hyperlipidemia Hypertension Metabolic alkalosis Occasional tremors Rheumatoid arthritis Skin cancer Smoker Stage 3b chronic kidney disease (CKD) Thyroid disease TIA (transient ischemic attack) Home Medications pravastatin 40 mg PO QHS 09/02/14 [History Last Taken 08/26/21] atenolol 100 mg PO QHS 04/17/18 [History Last Taken 08/26/21] hydrochlorothiazide 25 mg PO QHS 04/17/18 [History Last Taken 08/26/21] aspirin 81 mg PO QHS 08/01/18 [History Last Taken 08/26/21] levothyroxine 112 mcg PO QHS 08/27/21 [History Last Taken 08/26/21] paroxetine HCl 40 mg PO QHS 08/27/21 [History Last Taken 08/26/21] acetaminophen [Tylenol] 650 mg PO Q6H PRN PRN #0 tab 09/01/21 [Rx Last Taken Unknown] albuterol sulfate 2.5 mg INHALATION Q2H PRN PRN #0 ml 09/01/21 [Rx Last Taken Unknown] guaifenesin 20 ml PO Q4H PRN PRN #0 ml 09/01/21 [Rx Last Taken Unknown] lorazepam 1 mg PO BID PRN #6 tab 09/01/21 [Rx Last Taken Unknown] Allergy/AdvReac Type Severity Reaction Status Date / Time Corticosteroids Allergy Swelling Verified 11/25/21 06:23 (Glucocorticoids) codeine AdvReac Other Verified 11/25/21 06:23 cortisone [Cortisone] AdvReac Swelling Verified 11/25/21 06:23 morphine AdvReac Other Verified 11/25/21 06:23 Surgical History H/O: hysterectomy History of cholecystectomy History of left hip replacement S/P rotator cuff repair Social History household members: none Smoking Status: Current every day smoker tobacco type: cigarettes substance use type: does not use ROS ROS ED Constitutional Constitutional ED: Denies chills or fever(s) Eyes Eyes: Denies blurry vision or diplopia ENT ENT ED: Denies rhinorrhea or sore throat Cardiovascular Cardiovascular: Denies chest pain or palpitations Respiratory/Chest Respiratory/Chest: Reports dyspnea and dyspnea on exertion; Denies cough or sputum Gastrointestinal Gastrointestinal: Denies abdominal pain, nausea or vomiting Genitourinary Genitourinary ED: Denies dysuria Musculoskeletal Musculoskeletal: Denies arthralgias or myalgias Integumentary Reports Abrasions Neurologic Neurologic: Denies headache(s) or weakness EXAM Physical Exam Const Vital Signs: 11/25/21 06:17 11/25/21 06:22 11/25/21 06:25 Temperature 97.9 F Temperature Source Temporal Pulse Rate 102 H Respiratory Rate 22 H Respiratory Effort Labored Respiratory Pattern Blood Pressure 138/69 H Blood Pressure Mean 92 Pulse Ox 89 97 98 Oxygen Delivery Method Room Air Room Air Nasal Cannula Oxygen Flow Rate (L/min) 11/25/21 06:34 11/25/21 06:45 Temperature Temperature Source Pulse Rate 108 H Respiratory Rate 18 Respiratory Effort Normal Respiratory Pattern Normal Blood Pressure Blood Pressure Mean Pulse Ox 98 100 Oxygen Delivery Method Nasal Cannula Nasal Cannula Oxygen Flow Rate (L/min) 2 3 Positive well nourished General Appearance ED: RITU ALVARADO Reports normocephalic atraumatic Eyes General Eye ED: Negative for pale conjunctiva or scleral icterus Neck full ROM, no lymphadenopathy and supple General: Negative for tenderness Chest Wall inspection of chest normal Resp normal respiratory effort and clear to auscultation bilaterally Cardio regular rhythm Rate: tachycardic GI non-tender and non-distended Palpation: soft Extremity normal to inspection and full ROM Neuro oriented x3, CN's II-XII intact bilaterally, moves all extremities, no focal motor deficits and no sensory deficits noted Sensorium / Orientation: alert Psych mental status grossly normal and thought process normal Skin Skin Narrative: Superficial skin tears on the left forearm without active bleeding. No deep lacerations. No bony tenderness. MDM MDM MDM Narrative Medical decision making narrative: Patient presenting with history of fall. Her brother who lives out of state is here. He states that her sister who normally lives with her is undergoing surgery and is unable to care for her. He has tried but she fell last night twice. The first time he was able to get her up in the second time he was not. It appears the patient only had a skin tear on her left forearm. She has no focal neurologic deficits. She is slightly hypoxic and put on 2 L of oxygen. It looks like she has a history of chronic respiratory failure. Patient previously admitted in August for abdominal pain and had a consult by Dr. Acosta for abdominal pain and dilation of her extra and intrahepatic biliary ducts as well as the main pancreatic duct. She was noted to be hypoxic then and was on oxygen. She was discharged to correction. On 10/10/2021 she was seen at [facility] where she was admitted for CHF and dispositioned later to correction. She was 85% on room air on her presentation there. It was reported at that time that she was on 2 L of nasal cannula at home at baseline, however the patient states she does not have home O2. There is oxygen in her home from her and son. She states it is not hers. On the same day of discharge of 10/15/2021 she was seen in the emergency room again as she became angry, and agitated and was trying to leave. At that point the ER physician taking care of her was unable to send her home because her sister was elderly and had comorbidities and she was unable to return with her sister who she reportedly was living with. Patient was discharged back to the correction facility. At that point her hemoglobin was 10.2. On her last lab work prior to her admission elsewhere here at [facility] her hemoglobin was 15 in August 2021. The patient does appear to be confused and when I asked her if she has had any black or bloody stools she says no but during her rectal exam she states that she has been experience a lot of blood in her stools periodically. She does have a hemorrhoid which is not bleeding externally. This is in the 4 o'clock position. It does not appear to be thrombosed. Stool is brown and not melanotic or bloody. Is minimally tender. I did order a Hemoccult which is currently pending. Patient was seen again on 10/21/2021 for strokelike symptoms with a negative CT brain and CTA. She is been tested for Covid multiple times this has been negative. Her troponin has been normal but her BNP was elevated. Her chest x-ray on 10/16/2021 did show pleural effusions bilaterally and COPD changes. Her chest x-ray on 10/21/2021 showed no sizable pleural effusions and mild basilar opacities which could have represented multifocal pneumonia. At that point she was tested for Covid and was negative. Her creatinine at that time was 1.65 and her GFR was 31. In August 2021 here at [facility] creatinine was 1.3. ESR was 42. Her CBC today shows a hemoglobin of 10.0 so this has been stable. She has a slight white blood cell count of 11.8. There is a slight left shift. Platelets normal at 269. Creatinine is elevated at 2.26 today. GFR is 22. High-sensitivity troponin is negative. Chest x-ray on my interpretation shows bibasilar atelectasis versus infiltrates. Although I cannot see the previous images this sounds like an improvement. The patient's D-dimer today is 11.4 but due to her kidney issues I am unable to get a CTA of the chest. BNP is elevated at 567.2. After speaking to her brother Ulysses he did not think she had a rehab potential and he just wanted to try to keep her comfortable. He recommended a snf as his sister will be unable to care her. She has a recent hip fracture and is having pain in her hip and is going to [facility] today and possibly going to be admitted for surgical procedure. He does not think he can care for her. After speaking with Solo Contreras her sister and medical power of church musician at length she did think it was appropriate to make her sister DNR [employer] arrest. The appropriate paperwork was filled out. Urinalysis does not appear to be consistent with a urinary infection. There is some proteinuria and ketones and occult blood. Patient was discussed with hospitalist for admission Impression: 1. Generalized weakness 2. Falls 3. Left forearm skin tear 4. Failure to thrive 6. Acute kidney injury 7. Anemia 8. Occult GI bleed 9. Hypoxic respiratory failure acute on chronic Lab Data Attestation: I reviewed the patient's lab results. Labs: Laboratory Results - last 24 hr 11/25/21 11/25/21 11/25/21 06:52 06:52 06:52 WBC 11.8 H RBC 2.86 L Hgb 10.0 L Hct 31.7 L MCV 110.8 H MCH 35.0 H MCHC 31.5 L RDW Std Deviation 57.5 H RDW Coeff of Rene 13.9 Plt Count 269 MPV 9.3 Immature Gran % (Auto) 0.800 Neut % (Auto) 78.3 H Lymph % (Auto) 13.0 L [place] % (Auto) 7.5 Eos % (Auto) 0.0 Baso % (Auto) 0.4 Absolute Neuts (auto) 9.2 H Absolute Lymphs (auto) 1.53 Nucleated RBC % 0 D-Dimer Quant (PE/DVT) Sodium 145 Potassium 3.9 Chloride 112 H Carbon Dioxide 26.0 Anion Gap 7 BUN 45 H Creatinine 2.26 H Estim Creat Clear Calc 15.96 Est GFR (MDRD) Af Amer 27 L Est GFR (MDRD) Non-Af 22 L BUN/Creatinine Ratio 19.9 Glucose 112 H Calcium 8.2 L Troponin I High Sens 41 B-Natriuretic Peptide 567.2 H 11/25/21 06:52 WBC RBC Hgb Hct MCV MCH MCHC RDW Std Deviation RDW Coeff of Rene Plt Count MPV Immature Gran % (Auto) Neut % (Auto) Lymph % (Auto) [place] % (Auto) Eos % (Auto) Baso % (Auto) Absolute Neuts (auto) Absolute Lymphs (auto) Nucleated RBC % D-Dimer Quant (PE/DVT) 11.40 H* Sodium Potassium Chloride Carbon Dioxide Anion Gap BUN Creatinine Estim Creat Clear Calc Est GFR (MDRD) Af Amer Est GFR (MDRD) Non-Af BUN/Creatinine Ratio Glucose Calcium Troponin I High Sens B-Natriuretic Peptide Radiography Diagnostic Testing: Clinical Impression(s) from Imaging Studies Chest X-Ray 11/25/21 06:29 IMPRESSION: Mild bibasilar infiltrates or atelectasis. Electronically Signed: Abdirahman Jo MD at 7:32 EST , Discharge Plan Triage Chief Complaint: Fall ED Provider: Enrrique Mcdaniel Dx/Rx/DC Orders Prescriptions: No Action pravastatin 40 MG tablet 40 mg PO QHS RF: 0 atenolol 100 MG tablet 100 mg PO QHS RF: 0 hydrochlorothiazide 25 MG tablet 25 mg PO QHS RF: 0 aspirin 81 MG tablet,chewable 81 mg PO QHS RF: 0 paroxetine HCl 40 mg tablet 40 mg PO QHS RF: 0 levothyroxine 112 mcg tablet 112 mcg PO QHS RF: 0 guaifenesin 100 mg/5 mL Liquid 20 ml PO Q4H PRN PRN (Reason: COUGH) Qty: 0 RF: 0 acetaminophen [Tylenol] 325 mg Tablet 650 mg PO Q6H PRN PRN (Reason: Pain Score 1-10/Temp > 100.7 F) Qty: 0 RF: 0 albuterol sulfate 2.5 mg /3 mL (0.083 %) Solution For Nebulization 2.5 mg inhalation Q2H PRN PRN (Reason: Shortness of Breath/Wheezing) Qty: 0 RF: 0 lorazepam 1 mg Tablet 1 mg PO BID PRN (Reason: Anxiety) Qty: 6 RF: 0 Primary Care Provider: Mian Pal
--- NOTE | 2021-11-25 06:38 | ED.RN ---
Brother reports patient did not take her meds yesterday because she did not have them. He also states she is not eating or drinking. She states she does not feel hungry or thirsty and that is why she is not eating or drinking. Encouraged patient to eat and drink for health and energy, even when she does not feel like it.
[2021-11-25] MEDS: Ipratropium/Albuterol Sulfate 3 ML AMPUL.NEB INHALATION (06:42)
[2021-11-25 06:57] LABS: Absolute Lymphocyte Count 1.53 X10^3/uL (0.83-4.51); Absolute Neutrophil Count 9.2 X10^3/uL (2.0-7.7); Basophil# 0.05 X10^3/uL; Basophil% 0.4 % (0-1); Hematocrit 31.7 % (37-47); Lymphocyte # 1.53 X10^3/ul (0.83-4.51); Mean Corp Hgb Conc 31.5 g/dL (32-36); Mean Corpuscular Volume 110.8 fL (81-99); Mean Platelet Vol. 9.3 fl (6.2-12.0); Monocyte# 0.88 X10^3/uL; Monocyte% 7.5 % (0-10); NRBC Flagged by Analyzer 0 % (0-5); Neutrophil # 9.23 X10^3/uL (2.7-7.7); Neutrophil % 78.3 % (47-70); Platelet Count 269 K/mm3 (150-450); RBC Distribution Width CV 13.9 % (11.6-14.6); RBC Distribution Width SD 57.5 fl (35.1-43.9); Red Blood Count 2.86 M/mm3 (4.2-5.4); White Blood Count 11.8 K/mm3 (4.4-11.0)
[2021-11-25 07:14] LABS: Anion Gap 7 (5-15); BUN 45 mg/dL (7-18); BUN/Creat Ratio 19.9 RATIO (10-20); Calcium,Total 8.2 mg/dL (8.5-10.1); Chloride 112 mmol/L (98-107); Creatinine, Serum 2.26 mg/dL (0.55-1.02); EST Glomerular Filtration Rate 22 mL/min (>60); Est Glom Filt Rate - Afr Amer 27 mL/min (>60); Estimated Creatinine Clearance 15.96 ml/min; Glucose 112 mg/dL (74-106); Potassium 3.9 mmol/L (3.5-5.1); Sodium Level 145 mmol/L (136-145); Troponin-I HS 41 pg/mL (3.0-54.0)
[2021-11-25 07:36] LABS: Mucous, Urine 0 SEEN /hpf (<or=2+)
[2021-11-25 07:49] LABS: BNP,B-Type NATRIURETIC PEPTIDE 567.2 pg/mL (0-100)
[2021-11-25 07:51] LABS: Color, Urine Yellow (Yellow); Glucose, Dipstick Normal (Normal); Ketone-Dipstick 5 mg/dl (Negative); Leukocyte Esterase-Dipstick 25 /ul (Negative); Nitrite-Dipstick Negative (Negative); Occult Blood-Urine 250 /ul (Negative); Protein-Dipstick 500 mg/dl (Negative); Urine Bilirubin Dipstick Negative (Negative); Urine Clarity Sl. Cloudy (Clear); Urine Urobilinogen Normal (Normal)
--- NOTE | 2021-11-25 08:01 | NURSING ---
DR JOSEPH FOR DR PINTO
[2021-11-25 08:08] LABS: Red Blood Cells-Urine 50-100 SEEN /hpf (0-5)
[2021-11-25 08:09] LABS: Bacteria RARE /hpf (None Seen); Squamous Epithelial Cells - UA 0-5 SEEN /hpf (5-10); White Blood Cells 10-25 SEEN /hpf (0-5)
[2021-11-25 08:11] LABS: Amorphous Sediment 2+; Coarse Granular Cast 0-5 SEEN /lpf (0-5 /lpf)
--- NOTE | 2021-11-25 08:11 | NURSING ---
PCU OPAL FAILURE TO THRIVE, FALLS, ACUTE KIDNEY INJURY, BLOOD LOSS ANEMIA
--- NOTE | 2021-11-25 08:59 | HP.PCM.HOS_ITS ---
HPI - General General Date of Admission: 11/25/21 Date of Service: 11/25/21 Chief Complaint: Recurrent fall 2 times in last 2 days HPI Narrative Mrs. Parks is a 81-year-old female with multiple comorbidities with recent discharge on 09/01/2021 after admission for acute hypoxic and hypercarbic respiratory failure, chronic abdominal pain with biliary dilatation was brought into ED by her brother. Patient is very lethargic and falls asleep but she wakes up on verbal command. History taken from the patient and the brother near the bedside. As per the brother, she [facility] and after that she did well for first 2 days and then she fell in the evening while going to bathroom yesterday evening and then she fell today in the morning 5 AM. Patient does not have any specific organ system related symptoms like cough, acute shortness of breath, chest pain/pressure but she has generalized weakness and fatigue. She also looks depressed and does not have good eye contact. She has chronic upper abdominal pain gastritis and during previous admission she was seen by manager of broadcast content Dr. Acosta and was supposed to have MRCP as an outpatient for dilated intra and extrahepatic biliary duct. She denies burning micturition, fever, new cough cold or sputum production. She is on paroxetine and Ativan at home perhaps that may be the reason for increased drowsiness/lethargy. Her urine urine is dark yellow and less than are normal in amount. Vitals reviewed and is in normal range. Labs reviewed and mentioned in assessment and plan. Chest x-ray individually reviewed does not show any acute abnormality. Stool for occult blood positive. Twelve-lead EKG individually reviewed shows normal sinus rhythm 88 beats per 1, nonspecific ST-T abnormality, QTC 433 ms. No significant change from the previous EKG of 08/27/2021. [facility] Medical History Abdominal pain Anxiety Chronic bronchitis Chronic respiratory failure with hypercapnia Common bile duct dilatation CVA (cerebral vascular accident) Depression Erythrocytosis Hearing loss, left Hearing loss, right Hx of ectopic Hyperlipidemia Hypertension Metabolic alkalosis Occasional tremors Rheumatoid arthritis Skin cancer Smoker Stage 3b chronic kidney disease (CKD) Thyroid disease TIA (transient ischemic attack) Home Medications pravastatin 40 mg PO QHS 09/02/14 [History Last Taken 08/26/21] atenolol 100 mg PO QHS 04/17/18 [History Last Taken 08/26/21] hydrochlorothiazide 25 mg PO QHS 04/17/18 [History Last Taken 08/26/21] aspirin 81 mg PO QHS 08/01/18 [History Last Taken 08/26/21] levothyroxine 112 mcg PO QHS 08/27/21 [History Last Taken 08/26/21] paroxetine HCl 40 mg PO QHS 08/27/21 [History Last Taken 08/26/21] acetaminophen [Tylenol] 650 mg PO Q6H PRN PRN #0 tab 09/01/21 [Rx Last Taken Unknown] albuterol sulfate 2.5 mg INHALATION Q2H PRN PRN #0 ml 09/01/21 [Rx Last Taken Unknown] guaifenesin 20 ml PO Q4H PRN PRN #0 ml 09/01/21 [Rx Last Taken Unknown] lorazepam 1 mg PO BID PRN #6 tab 09/01/21 [Rx Last Taken Unknown] Allergy/AdvReac Type Severity Reaction Status Date / Time Corticosteroids Allergy Swelling Verified 11/25/21 06:23 (Glucocorticoids) codeine AdvReac Other Verified 11/25/21 06:23 cortisone [Cortisone] AdvReac Swelling Verified 11/25/21 06:23 morphine AdvReac Other Verified 11/25/21 06:23 Surgical History H/O: hysterectomy History of cholecystectomy History of left hip replacement S/P rotator cuff repair Social History household members: none Smoking Status: Former smoker substance use type: does not use ROS ROS Narrative Most of ROS done by patient's brother. 14 ROS limited by patient lethargy and drowsiness. Constitutional: Reports fatigue and weakness. No fever HEENT: Reports systems reviewed and no addt'l complaints, except as documented Respiratory/Chest: Denies chest pain, shortness of breath at rest or with exe rtion Gastrointestinal: Denies coffee ground emesis, hematemesis or vomiting. Stool occult blood positive Genitourinary: Denies burning urination or new urinary tract symptoms. Dark urine Musculoskeletal: Reports joint pain and limited range of motion. Fall Neurologic: Denies seizure-like activity skin: No ulcer. No rash Endocrinology: Reports systems reviewed and no addt'l complaints, except as documented Hematologic/Lymphatic: Reports systems reviewed and no addt'l complaints, except as documented Rest 14 ROS are negative except as mentioned in HPI Review of Systems ROS Unobtainable: due to encephalopathy, due to mental condition and due to mental status Vital Signs Vital Signs Vital Signs: 11/25/21 06:17 11/25/21 06:22 11/25/21 06:25 Temperature 97.9 F Temperature Source Temporal Pulse Rate 102 H Respiratory Rate 22 H Respiratory Effort Labored Respiratory Pattern Blood Pressure 138/69 H Blood Pressure Mean 92 Pulse Ox 89 97 98 Oxygen Delivery Method Room Air Room Air Nasal Cannula Oxygen Flow Rate (L/min) 11/25/21 06:34 11/25/21 06:45 11/25/21 08:09 Temperature 97.9 F Temperature Source Temporal Pulse Rate 108 H 103 H Respiratory Rate 18 18 Respiratory Effort Normal Respiratory Pattern Normal Blood Pressure 114/70 Blood Pressure Mean 114/70 Pulse Ox 98 100 100 Oxygen Delivery Method Nasal Cannula Nasal Cannula Nasal Cannula Oxygen Flow Rate (L/min) 2 3 2 11/25/21 08:51 Temperature Temperature Source Pulse Rate 89 Respiratory Rate 18 Respiratory Effort Respiratory Pattern Blood Pressure 128/58 H Blood Pressure Mean 81 Pulse Ox 100 Oxygen Delivery Method Nasal Cannula Oxygen Flow Rate (L/min) 2 Weight Weight: 149 lb 7.574 oz Body Mass Index (BMI) 27.3 Physical Exam Narrative General: Falls sleeps easily. Lethargic drowsy. When awake she is oriented x3. HEENT: Atraumatic, PERRLA, EOMI, Normocephalic Oral: Oral mucosa dry. No Gingival or Mucosal Lesions/ Ulcerations Neck: Supple, No JVD, Negative Carotid Bruits Lungs: Air entry diminished in bilateral lung bases. No crepitation/rhonchi Cardiovascular: Regular rate, Regular Rhythm, Normal S1, Normal S2, No murmurs Abdomen: Bowel Sounds Present, Soft, Non Tender, Non-Distended : No renal angle tenderness. No suprapubic tenderness. Extremities: Mild ankle pitting edema, Capillary Refill Less than 3 Seconds Skin: No rashes, No breakdown Musculoskeletal: No Tenderness to Palpation of Joints or Extremities. Muscle strength 4/5 at major joints Neurological: Cranial nerves II-XII grossly intact, DTR 2+/4. Psych/Mental Status: Flat affect, looks depressed. Results Lab / Micro Data Result Diagrams: 11/25/21 06:52 11/25/21 06:52 Labs: Laboratory Results - last 24 hr 11/25/21 06:52: WBC 11.8 H, RBC 2.86 L, Hgb 10.0 L, Hct 31.7 L, MCV 110.8 H, MCH 35.0 H, MCHC 31.5 L, RDW Std Deviation 57.5 H, RDW Coeff of Rene 13.9, Plt Count 269, MPV 9.3, Immature Gran % (Auto) 0.800, Neut % (Auto) 78.3 H, Lymph % (Auto) 13.0 L, [place] % (Auto) 7.5, Eos % (Auto) 0.0, Baso % (Auto) 0.4, Absolute Neuts (auto) 9.2 H, Absolute Lymphs (auto) 1.53, Nucleated RBC % 0 11/25/21 06:52: Sodium 145, Potassium 3.9, Chloride 112 H, Carbon Dioxide 26.0, Anion Gap 7, BUN 45 H, Creatinine 2.26 H, Estim Creat Clear Calc 15.96, Est GFR (MDRD) Af Amer 27 L, Est GFR (MDRD) Non-Af 22 L, BUN/Creatinine Ratio 19.9, Glucose 112 H, Calcium 8.2 L, Troponin I High Sens 41 11/25/21 06:52: B-Natriuretic Peptide 567.2 H 11/25/21 06:52: D-Dimer Quant (PE/DVT) 11.40 H* 11/25/21 07:30: Urine Color Yellow, Urine Clarity Sl. Cloudy, Urine pH 5.0, Ur Specific [place] 1.020, Urine Protein 500 H, Urine Glucose (UA) Normal, Urine Ketones 5 H, Urine Occult Blood 250 H, Urine Nitrite Negative, Urine Bilirubin Negative, Urine Urobilinogen Normal, Ur Leukocyte Esterase 25 H, Urine RBC 50- 100 SEEN, Urine WBC 10-25 SEEN, Ur Squamous Epith Cells 0-5 SEEN, Amorphous Sediment 2+, Urine Bacteria RARE, Coarse Granular Casts 0-5 SEEN, Urine Mucus 0 SEEN Micro: Microbiology 11/25/21 07:30 Stool Stool Occult Blood (HERMAN) - Final Occult Blood Positive Radiology Impression Chest X-Ray 11/25/21 06:29 IMPRESSION: Mild bibasilar infiltrates or atelectasis. Electronically Signed: Abdirahman Jo MD at 7:32 EST , Assessment & Plan Assessment/Plan (1) Generalized weakness: PLAN: This 81-year-old female came to ER for recurrent fall 2 times in less than 24 hours along with generalized weakness 1. Generalized weakness, recurrent fall and acute encephalopathy on baseline depression possible dementia: [facility] PT OT ordered. IV fluid resuscitation. Possible etiologies include decreased muscle strength, disequilibrium/depression/chronic GI bleed/multiple chronic disease. Acute encephalopathy most probably metabolic along with polypharmacy and anemia 2 acute on chronic anemia possible due to GI blood loss: Hemoglobin is dropped to 10g% with her baseline around 14 in August 2021. Stool for occult blood positive. She had anemia in the past with her hemoglobin around 10 to 11 g%. Discussed with Dr. Acosta and consult requested. Continue baby aspirin as patient has history of CVA 3. History of cirrhosis with intra and extrahepatic biliary dilatation, chronic narcotic use and chronic abdominal pain: The patient has history of cirrhosis AND chronic abdominal pain. Her abdominal pain was felt to be secondary to chronic narcotic use/functional/parietal pain. She had MRI abdomen on 09/01/2021 which showed moderate dilatation of extra and intrahepatic biliary duct and main pancreatic duct. Possible due to postcholecystectomy. She was recommended MRCP as an outpatient follow-up with Dr. Acosta. 4. Acute kidney injury on stage IIIb chronic kidney disease: Creatinine is 2.26. Baseline creatinine runs around 1.3-1.4. BUN 45. BUN/creatinine ratio is 20. IV fluid Ringer lactate is started as chloride is high. Serum sodium potassium bicarb in normal range. 5. Dyslipidemia -Patient is on statin therapy, continued at home dose 6. CVA: Baby aspirin and statin continued. 7. Hypothyroidism - Patient is on levothyroxine home dose continued 8. Depression with anxiety ?Patient is on SSRI as well as lorazepam as needed 9. Rheumatoid arthritis, decreased equilibrium and balance: 10. Hypertension: Blood pressure is controlled. Monitor blood pressure and adjust home medications as needed DVT prophylaxis: Bilateral SCDs. Pharmacological prophylaxis contraindicated Living will/advanced directive/end of life care: Patient does have living will or advanced directive. His brother is power of banking attorney for health. After discussion of benefits/risks procedures involved with full code, DNR CC arrest and DNR CC, the patient's brother opted for DNRCC arrest with no intubation. Patient not alert and cognizant enough to make decision for Patient's brother doesn't want artificial life support including intubation, tube feed, ventilator and/chest compression, central venous catheter, vasopressor and DC shock if needed Total time spent in [id number] encounter in discussion of advanced directive 16 minutes. Charges/Coding Visit Charges Inpatient E&M: 80952 Init Hosp L3 Procedures Hospitalists Procedures: 79531 Advncd Care Plan 30 Min
[2021-11-25 09:14] LABS: Magnesium 1.5 mg/dL (1.6-2.6); Phosphorus 3.3 mg/dL (2.5-4.9)
[2021-11-25] MEDS: Lactated Ringers 1,000 ML 100 ML IV ×2 (10:47→19:59)
--- NOTE | 2021-11-25 12:53 | CHAPLAIN ---
Type of Pastoral Visit _x__ Initial Visit ___ Follow-up Visit ___ On-call Visit ___ General Patient Visit ___ Spiritual Assessment ___ Family Conference ___ Bereavement ___ Rapid Response ___ Code Blue ___ Other (describe below) Pastoral Care Referral From _x__ Patient _x__ Family ___ Nurse ___ Physician ___ Director Medical ___ Management Lead ___ Other (describe below) Sacrament/Intervention _x__ Active listening ___ Anointing ___ Roman Catholic ___ Bereavement ___ Communion _x__ Lynn exploration ___ _x__ Life review _x__ Prayer ___ Reconciliation ___ Sacrament of Sick _x__ Supportive presence ___ Wedding ___ Other (describe below) Pastoral Comments patient is sleeping when entered the room but brother of patient is eager to talk; brother is concerned that pt has given up the will to live as he describes her losses in life and a small support system; brother came from [place] to be of help; brother asks for prayer; after prayer the patient wakes up and is also offered support; pt acknowledges her needs, her depression from life circumstances, and some anxiety about her future; prayer is again offered; offer of support given to patient and brother for the future during her admission
--- NOTE | 2021-11-25 19:34 | EX.PCM.CON.G ---
HPI Consult Data Date of Consult: 11/25/21 HPI Narrative HPI Narrative: SOCO FLEMING, is a 81 F who presenting with a fall. Patient is a poor informant. I saw her in consultation in the hospital for abdominal pain and abnormal imaging. Her imaging it showed a dilated common bile duct possibly secondary to an ampullary lesion versus ampullary stenosis. 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 Her imaging had also shown a cirrhotic liver. She has no history of alcohol abuse. She does have a history of severe COPD. She has a skin tear to the left forearm. Patient believes she got out of bed to quickly. Patient states that she did not have a head injury or loss of consciousness. She denies neck, back, hip pain. She states she does not really have pain anywhere except for her skin tear is on the left forearm. She states she does not have chest pain or shortness of breath when she is resting. She does state that she is short of breath anytime she gets up and walks. She states has been chronic for months. It is noted that her pulse ox is low at 89% and she states that it is chronically low in the low 90s. She does not have any abdominal pain. Patient states he was just taken home from [facility] on Tuesday. She has had no previous falls since being home. Her brother reported to EMS that he could not care for her at their home anymore. [facility] Medical History Abdominal pain Anxiety Chronic bronchitis Chronic respiratory failure with hypercapnia Common bile duct dilatation CVA (cerebral vascular accident) Depression Erythrocytosis Hearing loss, left Hearing loss, right Hx of ectopic Hyperlipidemia Hypertension Metabolic alkalosis Occasional tremors Rheumatoid arthritis Skin cancer Smoker Stage 3b chronic kidney disease (CKD) Thyroid disease TIA (transient ischemic attack) Home Medications pravastatin 40 mg PO QHS 09/02/14 [History Last Taken 08/26/21] atenolol 100 mg PO QHS 04/17/18 [History Last Taken 08/26/21] hydrochlorothiazide 25 mg PO QHS 04/17/18 [History Last Taken 08/26/21] aspirin 81 mg PO QHS 08/01/18 [History Last Taken 08/26/21] levothyroxine 112 mcg PO QHS 08/27/21 [History Last Taken 08/26/21] paroxetine HCl 40 mg PO QHS 08/27/21 [History Last Taken 08/26/21] acetaminophen [Tylenol] 650 mg PO Q6H PRN PRN #0 tab 09/01/21 [Rx Last Taken Unknown] albuterol sulfate 2.5 mg INHALATION Q2H PRN PRN #0 ml 09/01/21 [Rx Last Taken Unknown] guaifenesin 20 ml PO Q4H PRN PRN #0 ml 09/01/21 [Rx Last Taken Unknown] lorazepam 1 mg PO BID PRN #6 tab 09/01/21 [Rx Last Taken Unknown] Allergy/AdvReac Type Severity Reaction Status Date / Time Corticosteroids Allergy Swelling Verified 11/25/21 06:23 (Glucocorticoids) codeine AdvReac Other Verified 11/25/21 06:23 cortisone [Cortisone] AdvReac Swelling Verified 11/25/21 06:23 morphine AdvReac Other Verified 11/25/21 06:23 Surgical History H/O: hysterectomy History of cholecystectomy History of left hip replacement S/P rotator cuff repair Social History household members: none Smoking Status: Former smoker substance use type: does not use ROS Review of Systems ROS Unobtainable: other Constitutional Constitutional: Denies fatigue, fever(s), poor appetite, weight gain or weight loss ENT HEENT: Denies mouth lesions Cardiovascular Cardiovascular: Denies abdominal bloating, abdominal edema or abdominal pain Respiratory/Chest Respiratory/Chest: Denies change in mental status, change in phlegm color, chest congestion or chest tightness Gastrointestinal Gastrointestinal: Denies belching, bloating, change in bowel habits, change in stool character, chewing difficulty, coffee ground emesis, constipation, cramping, diarrhea, dyspepsia, dysphagia, early satiety, excessive flatus, fecal incontinence, heartburn, hematemesis, hematochezia, hemorrhoids, loose stools, melena, nausea, odynophagia, rectal bleeding, tenesmus, vomiting or weight changes Genitourinary Genitourinary: Denies abdominal discomfort, burning urination or itching Musculoskeletal Musculoskeletal: Reports as per HPI; Denies muscle weakness or myalgias Integumentary Integumentary: Denies jaundice Neurologic Neurologic: Denies lack of coordination or weakness Psychiatric Psychiatric: Denies confusion, depression, memory loss, mood swings, paranoia or suicidal ideation Endocrine Endocrinology: Denies systems reviewed and no addt'l complaints, except as documented Hematologic/Lymphatic Hematologic/Lymphatic: Denies anemia, easy bleeding, easy bruising or lymphadenopathy Allergic/Immunologic Allergic/Immunologic: Denies systems reviewed and no addt'l complaints, except as documented Physical Exam Const alert General Appearance: cooperative Orientation / Consciousness: oriented to person HEENT hearing grossly normal bilaterally Head and Scalp: normal to inspection Face and Sinus: face symmetric Nose: external nose normal Mouth: oral and palatal mucosa normal Eyes conjunctivae normal General Eye: normal appearance of both eyes Neck full ROM General: normal visual inspection Lymph Lymphatic: no lymphadenopathy noted Chest inspection of chest normal and palpation of chest normal Chest: symmetrical chest wall rise Resp normal respiratory effort Effort and Inspection: able to speak in complete sentences Cardio regular rate GI non-distended Percussion: normal to percussion Rectal Exam: deferred Neuro Speech: speech normal Gait (Neuro): normal gait Lab / Micro Data Result Diagrams: 11/25/21 06:52 11/25/21 06:52 Labs: Laboratory Results - last 24 hr 11/25/21 06:52: WBC 11.8 H, RBC 2.86 L, Hgb 10.0 L, Hct 31.7 L, MCV 110.8 H, MCH 35.0 H, MCHC 31.5 L, RDW Std Deviation 57.5 H, RDW Coeff of Rene 13.9, Plt Count 269, MPV 9.3, Immature Gran % (Auto) 0.800, Neut % (Auto) 78.3 H, Lymph % (Auto) 13.0 L, Josephine % (Auto) 7.5, Eos % (Auto) 0.0, Baso % (Auto) 0.4, Absolute Neuts (auto) 9.2 H, Absolute Lymphs (auto) 1.53, Nucleated RBC % 0 11/25/21 06:52: Sodium 145, Potassium 3.9, Chloride 112 H, Carbon Dioxide 26.0, Anion Gap 7, BUN 45 H, Creatinine 2.26 H, Estim Creat Clear Calc 15.96, Est GFR (MDRD) Af Amer 27 L, Est GFR (MDRD) Non-Af 22 L, BUN/Creatinine Ratio 19.9, Glucose 112 H, Calcium 8.2 L, Troponin I High Sens 41 11/25/21 06:52: B-Natriuretic Peptide 567.2 H 11/25/21 06:52: D-Dimer Quant (PE/DVT) 11.40 H* 11/25/21 06:52: Phosphorus 3.3, Magnesium 1.5 L 11/25/21 07:30: Urine Color Yellow, Urine Clarity Sl. Cloudy, Urine pH 5.0, Ur Specific [place] 1.020, Urine Protein 500 H, Urine Glucose (UA) Normal, Urine Ketones 5 H, Urine Occult Blood 250 H, Urine Nitrite Negative, Urine Bilirubin Negative, Urine Urobilinogen Normal, Ur Leukocyte Esterase 25 H, Urine RBC 50-100 SEEN, Urine WBC 10-25 SEEN, Ur Squamous Epith Cells 0-5 SEEN, Amorphous Sediment 2+, Urine Bacteria RARE, Coarse Granular Casts 0-5 SEEN, Urine Mucus 0 SEEN 11/25/21 08:00: Blood Type O POSITIVE, Antibody Screen NEGATIVE Micro: Microbiology 11/25/21 07:30 Stool Stool Occult Blood (HERMAN) - Final Occult Blood Positive Radiology Impression Chest X-Ray 11/25/21 06:29 IMPRESSION: Mild bibasilar infiltrates or atelectasis. Electronically Signed: Abdirahman Jo MD at 7:32 EST , Assessment & Plan Assessment/Plan (1) Cirrhosis: PLAN: I will check an ammonia level and start her on Xifaxan 550 mg twice a day. I will also check INR, LDH, alpha-fetoprotein, I would also start on lactulose 30 cc twice a day. She should undergo an upper endoscopy to see if she has any varices. (2) Common bile duct dilatation: PLAN: I will check a CA 19-9 and not pursue ERCP at this time due to her respiratory issues and due to the fact that she would not tolerate a surgery if an abnormality was found on ERCP. If she becomes jaundiced then she may benefit from a therapeutic ERCP with stenting for palliation. (3) Anemia: PLAN: Multifactorial secondary anemia chronic disease, iron deficiency anemia and CKD. Charges/Coding Visit Charges Inpatient E&M: 19334 Init Hosp L3
[2021-11-25] MEDS: Atenolol 100 MG Tablet PO (20:01)
[2021-11-25] MEDS: Paroxetine 20 MG Tablet 40 MG PO (20:01)
[2021-11-25] MEDS: Pravastatin 40 MG Tablet PO (20:01)
[2021-11-25] MEDS: Senna/Docusate Sodium 1 Tablet 2 TABLET PO (20:01)
[2021-11-25] MEDS: Aspirin 81 MG TAB.CHEW PO (20:01)
[2021-11-25] MEDS: Levothyroxine 112 MCG Tablet PO (20:02)
[2021-11-25] MEDS: Acetaminophen 325 MG Tablet 650 MG PO (22:32)
[2021-11-26] VITALS (13 sets, daily range): BP systolic 112–157; BP diastolic 47–92; PULSE 56–84; RESP 16–18; TEMP 36.3–36.8; O2SAT 85–100
[2021-11-26 06:35] LABS: Absolute Lymphocyte Count 1.65 X10^3/uL (0.83-4.51); Absolute Neutrophil Count 5.8 X10^3/uL (2.0-7.7); Basophil# 0.03 X10^3/uL; Basophil% 0.4 % (0-1); Eosinophils% 1.3 % (0-5); Hematocrit 35.2 % (37-47); Lymphocyte # 1.65 X10^3/ul (0.83-4.51); Lymphocyte % 20.7 % (19-41); Mean Corp Hgb Conc 31.3 g/dL (32-36); Mean Corpuscular Hgb 34.7 pg (27.0-32.0); Mean Platelet Vol. 9.2 fl (6.2-12.0); Monocyte# 0.38 X10^3/uL; Monocyte% 4.8 % (0-10); NRBC Flagged by Analyzer 0 % (0-5); Neutrophil # 5.77 X10^3/uL (2.7-7.7); Platelet Count 339 K/mm3 (150-450); RBC Distribution Width CV 13.9 % (11.6-14.6); Red Blood Count 3.17 M/mm3 (4.2-5.4)
[2021-11-26 06:49] LABS: International Normalized Ratio 1.2; Prothrombin Time (Protime)PT. 14.4 SECONDS (11.7-14.9)
[2021-11-26 06:50] LABS: Partial Thromboplast Time 32.6 Seconds (24.1-36.2)
[2021-11-26 09:38] LABS: Anion Gap 4 (5-15); BUN 47 mg/dL (7-18); BUN/Creat Ratio 19.3 RATIO (10-20); CPK Total, Creatine Kinase 54 U/L (26-192); Calcium,Total 8.5 mg/dL (8.5-10.1); Chloride 113 mmol/L (98-107); Creatinine, Serum 2.43 mg/dL (0.55-1.02); EST Glomerular Filtration Rate 20 mL/min (>60); Est Glom Filt Rate - Afr Amer 25 mL/min (>60); Estimated Creatinine Clearance 14.85 ml/min; Glucose 108 mg/dL (74-106); Potassium 4.5 mmol/L (3.5-5.1); Sodium Level 143 mmol/L (136-145)
--- NOTE | 2021-11-26 09:45 | CON.PCM.RE_ITS ---
Assessment & Plan Assessment/Plan (1) JAZ (acute kidney injury): (2) Generalized weakness: (3) Anemia: (4) Essential hypertension: PLAN: Patient was admitted to the hospital for evaluation of generalized weakness, recurrent falls, acute encephalopathy, JAZ on CKD stage III. We were consulted for acute kidney injury. In reviewing past creatinine trends, it appears baseline creatinine since 2013 has been ranging around 1 to 1.3 mg/dL. Patient has not been followed by maintenance journeyman. Creatinine was 1.3 mg/dL on September 01, 2021. Creatinine was 2.2 mg/dL yesterday and today creatinine is at 2.4 mg/dL. Patient is voiding. She was started on IV fluids. Initially patient may have been intravascularly volume depleted. Reviewed CXR which showed mild bibasilar infiltrates. Recommend to continue holding hydr ochlorothiazide. Will check renal ultrasound. Check CPK. Past urinalysis showed 30 protein, UA in the emergency room urine protein 500, blood 250, positive leukocyte esterase. Will check urine culture. Blood pressures acceptable, not on any antihypertensives. At this time there is no acute vinod cation for ALODIZE MACHINE HELPER, potassium and acid-base acceptable. Volume status acceptable. I reviewed this with patient's brother and questions answered. Labs ordered for am. 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 Patient is to undergo Upper GI today, she is on pantoprazole drip, started on Xifaxan 550 twice daily, CA-19-9 pending. Hemoglobin 11.8 on admission, hemoglobin today is 8. Further orders forthcoming as hospitalization evolves, thank you for allowing us to participate in the care of Ms. Fleming. HPI Consult Data Date of Consult: 11/26/21 HPI Narrative HPI Narrative: SOCO FLEMING, is a 81 F who was brought to the emergency room last evening by her brother for evaluation after multiple falls at home and lethargy. Information is gathered from patient's brother who is at bedside, patient is also alert this morning but having difficult time recalling recent events. Patient has past medical history significant for Cirrhosis, depression (lost her son about 4 years ago and her about a year ago), hypertension, TIA. Patient had just been released from the residential on Tuesday, patient's brother came from out of state to be with her. We were consulted for acute kidney injury. In the emergency room yesterday patient's creatinine was 2.26 mg/dL, today her creatinine is 2.43 mg/dL. According to patient's brother, patient has had very poor appetite, drinks very little water, only drinks Pepsi. Per brother no nausea or vomiting that he is aware of. Also per brother patient does take [id number] medication for pain as needed, does not know if Tylenol or NSAIDs. Today the patient denies any nausea, she is complaining of feeling thirsty. [facility] Medical History (Updated 11/26/21 @ 09:53 by QUENTIN Tipton) Abdominal pain Anxiety Chronic bronchitis Chronic respiratory failure with hypercapnia Common bile duct dilatation CVA (cerebral vascular accident) Depression Erythrocytosis Hearing loss, left Hearing loss, right History of stress test Hx of ectopic Hyperlipidemia Hypertension Metabolic alkalosis Occasional tremors Rheumatoid arthritis Skin cancer Smoker Stage 3b chronic kidney disease (CKD) Thyroid disease TIA (transient ischemic attack) Home Medications pravastatin 40 mg PO QHS 09/02/14 [History Last Taken 08/26/21] atenolol 100 mg PO QHS 04/17/18 [History Last Taken 08/26/21] hydrochlorothiazide 25 mg PO QHS 04/17/18 [History Last Taken 08/26/21] aspirin 81 mg PO QHS 08/01/18 [History Last Taken 08/26/21] levothyroxine 112 mcg PO QHS 08/27/21 [History Last Taken 08/26/21] paroxetine HCl 40 mg PO QHS 08/27/21 [History Last Taken 08/26/21] acetaminophen [Tylenol] 650 mg PO Q6H PRN PRN #0 tab 09/01/21 [Rx Last Taken Unk nown] albuterol sulfate 2.5 mg INHALATION Q2H PRN PRN #0 ml 09/01/21 [Rx Last Taken Unknown] guaifenesin 20 ml PO Q4H PRN PRN #0 ml 09/01/21 [Rx Last Taken Unknown] lorazepam 1 mg PO BID PRN #6 tab 09/01/21 [Rx Last Taken Unknown] Allergy/AdvReac Type Severity Reaction Status Date / Time Corticosteroids Allergy Swelling Verified 11/25/21 06:23 (Glucocorticoids) codeine AdvReac Other Verified 11/25/21 06:23 cortisone [Cortisone] AdvReac Swelling Verified 11/25/21 06:23 morphine AdvReac Other Verified 11/25/21 06:23 Surgical History (Updated 11/26/21 @ 03:40 by Tavo Vincent) H/O cardiac catheterization H/O: hysterectomy History of cholecystectomy History of left hip replacement S/P rotator cuff repair Social History household members: none Smoking Status: Former smoker substance use type: does not use ROS ROS Narrative As per HPI and past medical history Physical Exam Narrative Const: Alert and oriented x3 HEENT: Head is normocephalic, atraumatic, pupils equal round reactive to light, nation, oral mucosa is dry lips dry Respiratory: Lung sounds clear anteriorly and posteriorly : Abdomen soft, nontender, positive bowel sounds x4 quadrants Extremities: No pitting edema Lab / Micro Data Result Diagrams: 11/26/21 06:22 11/26/21 06:22 Labs: Laboratory Results - last 24 hr 11/25/21 08:00: Blood Type O POSITIVE, Antibody Screen NEGATIVE 11/26/21 06:22: WBC 8.0, RBC 3.17 L, Hgb 11.0 L, Hct 35.2 L, MCV 111.0 H, MCH 34.7 H, MCHC 31.3 L, RDW Std Deviation 57.0 H, RDW Coeff of Rene 13.9, Plt Count 339, MPV 9.2, Immature Gran % (Auto) 0.800, Neut % (Auto) 72.0 H, Lymph % (Auto) 20.7, Bent % (Auto) 4.8, Eos % (Auto) 1.3, Baso % (Auto) 0.4, Absolute Neuts (auto) 5.8, Absolute Lymphs (auto) 1.65, Nucleated RBC % 0 11/26/21 06:22: PT 14.4, INR 1.2, APTT 32.6 11/26/21 06:22: TSH 32.80 H 11/26/21 06:22: Sodium 143, Potassium 4.5, Chloride 113 H, Carbon Dioxide 26.0, Anion Gap 4 L, BUN 47 H, Creatinine 2.43 H, Estim Creat Clear Calc 14.85, Est GFR (MDRD) Af Amer 25 L, Est GFR (MDRD) Non-Af 20 L, BUN/Creatinine Ratio 19.3, Glucose 108 H, Calcium 8.5, Total Creatine Kinase 54 Micro: Microbiology 11/25/21 07:30 Stool Stool Occult Blood (HERMAN) - Final Occult Blood Positive
--- NOTE | 2021-11-26 10:04 | US_ITS ---
STUDY: RENAL ULTRASOUND - COMPLETE REASON FOR EXAM: Female, 81 years old. JAZ -- TECHNIQUE: Ultrasound evaluation of the kidneys was performed with real-time and static travis-scale imaging. COMPARISON: None. FINDINGS: RIGHT KIDNEY: Normal location of the right kidney, which is normal in size. The right kidney measures 10.1 x 4.5 x 4.2 cm. There is a normal cortex of the right kidney. The renal cortex measures 1.8 cm. There is no right renal mass or cyst. There are no right renal calculi. There is no right hydronephrosis. DISTAL RIGHT URETER: There is non-visualization of the distal right ureter. There is no demonstrated right ureterovesical junction calculus. There is a visualized right ureteral jet. LEFT KIDNEY: Normal location of the left kidney, which is normal in size. The left kidney measures 9.8 x 4.9 x 4 cm. There is a normal cortex of the left kidney. The renal cortex measures 11.4 cm. There is a cyst measuring 1.1 x 1.2 cm. There are no left renal calculi. There is no left hydronephrosis. DISTAL LEFT URETER: There is non-visualization of the distal left ureter. There is no demonstrated left ureterovesical junction calculus. There is a visualized left ureteral jet. . Diffusely increased cortical echoes consistent with nonspecific renal parenchymal disease BLADDER: Bladder is poorly visualized due to lack of volume US/Kidney and Bladder IMPRESSION: Findings consistent with nonspecific renal parenchymal disease. Small left renal cyst. No evidence for renal obstruction Electronically Signed: Jayce Husain MD at 17:01 EST ,
--- NOTE | 2021-11-26 11:00 | CASEMGMT ---
Social Work Note ALEXIS updated that pt's brother Ulysses present at [facility] and requesting to speak to this worker. ALEXIS back to speak with Ulysses. ALEXIS introduced self and role at [facility]. Ulysses states that pt has been in and out of nursing homes and hospitals since last August. Ulysses states pt was initially discharged to [facility] and didn't like the care there so pt then went to [facility]. Ulysses states that while pt was at [facility] there was an incident that staff had woken pt up in the middle of the night and pt was startled so she knocked out the medications of the staff hands and pt was then determined to have behavior issues and pt was sent to [facility] in [place] and just left that facility 11/20/2021. Ulysses states he has made five trips to see pt and try and take care of pt. Ulysses asked how to get pt back to SNF and how to keep pt in SNF ferry terminal agent. ALEXIS explained that this worker will need to find out how many Medicare days pt has used. ALEXIS explained Medicare rules and guidelines and that pt would need a 60 day break from detention/hospital visits before days would reset. ALEXIS explained that once Medicare days are out, pt would be private pay at SNF until Medicaid becomes active. ALEXIS explained process of applying for Medicaid. Ulysses states that while pt was at [facility], they started the process of applying for Medicaid. Ulysses states when pt left [facility] he tried to go back and get the Medicaid Application and was told that [facility] didn't have the application anymore since pt left their facility. ALEXIS reviewed list of SNF with Ulysses. Ulysses states he doesn't want pt to go back to [facility]. ALEXIS explained other options of SNF in [place]. Ulysses states to try any of the SNF in [place]. ALEXIS asked Ulysses who the HCPOA is. Ulysses states his sister Solo is HCPOA but she is currently at [facility].Ulysses states he will take Medicaid Application to pt's sister Solo to get the application completed today. ALEXIS informed Ulysses that referrals will be sent out and this worker will keep him updated. Ulysses states understanding. Medicaid Application provided to Ulysses. 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
--- NOTE | 2021-11-26 11:23 | CASEMGMT ---
Addendum entered by Alaina Evangelista 11/26/21 13:19: Annelise from [facility] called and wants to know how many skilled days did the patient use at her previous SNF stay and if she still smokes and what her current vaccination status is. I left a VM for ALEXIS Wyman. Will Follow Up Addendum entered by Alaina Evangelista 11/26/21 11:51: Left a VM for Elly at [facility]. Faxed Referral. Also, Left a VM for Annelies at [facility] and Faxed Referral. Will follow up. Original Note: Discharge Boilermaker Apprentice Reached out to [facility] for a referral. They will look at it but, cannot tell us if they can accept until the end of next week. Reached out to Marcial at [facility]. They are currently full and there is a wait list. Reached out to Gudelia at [facility]. They are currently not taking any referrals because they are having a Covid Outbreak there. Alaina Evangelista Discharge Boilermaker Apprentice
--- NOTE | 2021-11-26 11:25 | CASEMGMT ---
Social Work Note ALEXIS updated that all three SNF in [place] ([facility], [facility], and [facility]) are not taking admissions at this time. ALEXIS placed a call to pt's brother Ulysses and updated him that no SNF in [place] are taking admissions at this time. Ulysses states to try any SNF in [place] or [place] and it doensn't matter which SNF. ALEXIS informed Ulysses that this worker can start calling SNF in [place] to determine bed availability and Ulysses states understanding. ALEXIS informed pt that once bed availability is confirmed, this worker will start with highest rank SNF in [place] and then work down the list. Ulysses states understanding, agreeable to trying SNF in [place]. Plan: SNF [facility] UNIVERSAL WORKER ASSISTED LIVING, TERRITORY SALES REPRESENTATIVE
--- NOTE | 2021-11-26 12:10 | NURSING ---
1040, off unit via bed for procedure
--- NOTE | 2021-11-26 12:18 | CASEMGMT ---
Discharge Timers Inspector Elly from the [facility] called. [facility] can accept the patient. ALEXIS Wyman notified and is checking with family on vaccination status. Will follow up. Alaina Evangelista Discharge Timers Inspector
[2021-11-26] MEDS: 0.9% Saline Lock 10 ML Syringe IV (14:08)
--- NOTE | 2021-11-26 14:38 | PN.HOSP_ITS ---
Subjective Subjective Follow-up for GI bleeding anemia, recurrent fall. Multiple comorbidities Patient was seen by punchboard filling machine operator yesterday. Consult reviewed. Patient feels better overall. Feels more stronger. More awake and alert. Objective Data Objective Data Vital Signs: Vital Signs Temp Pulse Resp BP Pulse Ox 97.4 F L 56 L 18 140/66 H 95 11/26/21 08:30 11/26/21 08:30 11/26/21 08:30 11/26/21 08:30 11/26/21 08:30 Oxygen Flow Rate (L/min) 2.5 Oxygen Delivery Method Nasal Cannula Weight: 140 lb 10.479 oz Body Mass Index (BMI) 25.4 Intake & Output: Intake and Output for Last 24 Hours 11/24/21 11/25/21 11/26/21 23:59 23:59 23:59 Intake Total 2690 / 2790 1100.75 / 1100.75 Output Total 650 / 650 Balance 2040 / 2140 1100.75 / 1100.75 Lab / Micro Data Result Diagrams: 11/26/21 06:22 11/26/21 06:22 Labs: Laboratory Results - last 24 hr 11/26/21 06:22: WBC 8.0, RBC 3.17 L, Hgb 11.0 L, Hct 35.2 L, MCV 111.0 H, MCH 34.7 H, MCHC 31.3 L, RDW Std Deviation 57.0 H, RDW Coeff of Rene 13.9, Plt Count 339, MPV 9.2, Immature Gran % (Auto) 0.800, Neut % (Auto) 72.0 H, Lymph % (Auto) 20.7, [place] % (Auto) 4.8, Eos % (Auto) 1.3, Baso % (Auto) 0.4, Absolute Neuts (auto) 5.8, Absolute Lymphs (auto) 1.65, Nucleated RBC % 0 11/26/21 06:22: PT 14.4, INR 1.2, APTT 32.6 11/26/21 06:22: TSH 32.80 H 11/26/21 06:22: Sodium 143, Potassium 4.5, Chloride 113 H, Carbon Dioxide 26.0, Anion Gap 4 L, BUN 47 H, Creatinine 2.43 H, Estim Creat Clear Calc 14.85, Est GFR (MDRD) Af Amer 25 L, Est GFR (MDRD) Non-Af 20 L, BUN/Creatinine Ratio 19.3, Glucose 108 H, Calcium 8.5, Total Creatine Kinase 54 Micro: Microbiology 11/25/21 07:30 Stool Stool Occult Blood (HERMAN) - Final Occult Blood Positive Physical Exam Narrative General: Alert, awake and oriented x3. HEENT: Atraumatic, PERRLA, EOMI, Normocephalic Oral: Oral mucosa moist. No Gingival or Mucosal Lesions/ Ulcerations Neck: Supple, No JVD, Negative Carotid Bruits Lungs: Air entry diminished in bilateral lung bases. No crepitation/rhonchi Cardiovascular: Regular rate, Regular Rhythm, Normal S1, Normal S2, No murmurs Abdomen: Bowel Sounds Present, Soft, Non Tender, Non-Distended : No renal angle tenderness. No suprapubic tenderness. Extremities: Mild ankle pitting edema, Capillary Refill Less than 3 Seconds Skin: No rashes, No breakdown Musculoskeletal: No Tenderness to Palpation of Joints or Extremities. Muscle strength 4/5 at major joints Neurological: Cranial nerves II-XII grossly intact, DTR 2+/4. Psych/Mental Status: Flat affect, looks depressed. Assessment & Plan Assessment/Plan (1) Generalized weakness: PLAN: This 81-year-old female came to ER for recurrent fall 2 times in less than 24 hours along with generalized weakness 1. Generalized weakness, recurrent fall and acute encephalopathy on baseline depression possible dementia: [facility]. PT OT ordered. IV fluid resuscitation. Possible etiologies include decreased muscle strength, disequilibrium/depression/chronic GI bleed/multiple chronic disease. Acute encephalopathy most probably metabolic along with polypharmacy and anemia 11/26: Acute encephalopathy resolved. She is alert, oriented x3 concordant. CK normal. 2 acute on chronic anemia possible due to GI blood loss/CKD: Hemoglobin is dropped to 10g% with her baseline around 14 in August 2021. Stool for occult blood positive. She had anemia in the past with her hemoglobin around 10 to 11 g%. Discussed with Dr. Acosta and consult requested. Continue baby aspirin as patient has history of CVA 11/26: Seen by GI. Plan for EGD today 3. History of cirrhosis with intra and extrahepatic biliary dilatation, chronic narcotic use and chronic abdominal pain: The patient has history of cirrhosis AND chronic abdominal pain. Her abdominal pain was felt to be secondary to chronic narcotic use/functional/parietal pain. She had MRI abdomen on 09/01/2021 which showed moderate dilatation of extra and intrahepatic biliary duct and main pancreatic duct. Possible due to postcholecystectomy. She was recommended MRCP as an outpatient follow-up with Dr. Acosta. 11/26. Serum ammonia and LDH, alpha-fetoprotein ordered. INR 1.2. Patient is started on Xifaxan 550 mg p.o. twice daily along with lactulose 30 mL twice daily. CA 19-9 ordered. Recommended not to do ERCP because of concern of respiratory failure with history of COPD. She was admitted with acute hypoxic respiratory failure with intubation due to his known bacterial pneumonia and COPD exacerbation in August 2014. 4. Acute kidney injury on stage IIIb chronic kidney disease: Creatinine is 2.26. Baseline creatinine runs around 1.3-1.4. BUN 45. BUN/creatinine ratio is 20. IV fluid Ringer lactate is started as chloride is high. Serum sodium potassium bicarb in normal range. 11/26 seen by solderer torch. Patient has proteinuria 5. Dyslipidemia -Patient is on statin therapy, continued at home dose 6. CVA: Baby aspirin and statin continued. 7. Hypothyroidism - Patient is on levothyroxine home dose continued 8. Depression with anxiety ?Patient is on SSRI as well as lorazepam as needed 9. Rheumatoid arthritis, decreased equilibrium and balance: 10. Hypertension: Blood pressure is controlled. Monitor blood pressure and adjust home medications as needed DVT prophylaxis: Bilateral SCDs. Pharmacological prophylaxis contraindicated Living will/advanced directive/end of life care: Patient does have living will or advanced directive. His brother is power of bench worker helper for health. After discussion of benefits/risks procedures involved with full code, DNR CC arrest and DNR CC, the patient's brother opted for DNRCC arrest with no intubation. Patient not alert and cognizant enough to make decision for Patient's brother doesn't want artificial life support including intubation, tube feed, ventilator and/chest compression, central venous catheter, vasopressor and DC shock if needed Total time spent in [id number] encounter in discussion of advanced directive 16 minutes. Charges/Coding Visit Charges Inpatient E&M: 60168 Subs Hosp L2
[2021-11-26] MEDS: Magnesium Sulfate 2 GM IV IV (15:46)
[2021-11-26 16:24] LABS: LDH 163 U/L (84-246)
--- NOTE | 2021-11-26 17:16 | CASEMGMT ---
Social Work Note SW aware that [facility] is able to accept pt. ALEXIS placed a call to Elly at [facility] to inquire about skilled days left for Medicare. Elly states she needs the dates when pt was at SNF. ALEXIS reviewed chart. Pt discharged to [facility] on 09/01/2021 and was there until 10/06/2021. ALEXIS informed Elly that this worker knows pt was at [facility] and [facility] but do not know the exact days. Elly states she will call [facility] to inquire about skilled days. ALEXIS also placed a call to [facility] and pt was at [facility] from 10/15/2021-10/26/2021. ALEXIS placed a call to Elly at [facility]. Elly states she called [facility] and pt was there from 10/26/2021-11/20/2021 and pt has 29 skilled days left. Elly also states pt has been vaccinated and received Booster shot. Elly states both [facility] and [facility] can accept pt. ALEXIS placed a call to [facility] and left message for Angelica updating her on skilled days remaining and that pt is vaccinated and received booster shot. ALEXIS waiting for determination from [facility] regarding referral ALEXIS placed a call to pt's brother Ulysses and updated him on referrals that were sent. ALEXIS updated Ulysses that both [facility] and [facility] can accept pt and this worker is waiting for determination from [facility]. Ulysses states that he and his will go see the facilities tomorrow morning and will let this worker know tomorrow which SNF they want pt to go to. Ulysses states that the Medicaid Application has been completed and will be sent to [facility]. ALEXIS also placed a call to pt's sister Solo as Ulysses informed this worker that Solo is the HCPOA for pt. ALEXIS introduced self and role at [facility]. Solo states that it is ok for Ulysses to be assisting in SNF choices for pt as she herself is currently in a prison. ALEXIS updated Solo that no SNF in [place] are accepting admissions now so Ulysses gave this worker permission to send referrals to SNF in [place]. ALEXIS explained the referrals were sent to [facility], [facility], and [facility]. ALEXIS informed Solo that both [facility] and [facility] are able to accept pt and this worker is waiting for determination from [facility]. ALEXIS also informed Solo that pt has 29 skilled days left under Medicare. ALEXIS also informed Solo that Ulysses is stating he will be going to look at the SNFs tomorrow and then will let this worker know which SNF he prefers. Solo states understanding, agreeable to plan. Solo also states she completed the Medicaid Application and has been submitted to [facility]. Plan: SNF [facility] REPRESENTATIVE, TELEPHONE CLAIMS REPRESENTATIVE
--- NOTE | 2021-11-26 18:53 | OP.EGD_ITS ---
Patient Name: Destiny Parks Procedure Date: 11/26/2021 11:43 AM Date of : 1940 Age: 81 Procedure: Upper GI endoscopy Indications: Melena Providers: Felix Acosta DO Medicines: See the Anesthesia note for documentation of the administered medications Patient Profile: This is a 81 year old female. Refer to note in patient chart for documentation of history and physical. Patient has symptoms. Complications: No immediate complications. Procedure: Pre-Anesthesia Assessment: - Prior to the procedure, a History and Physical was performed, and patient medications and allergies were reviewed. The patient is competent. The risks and benefits of the procedure and the sedation options and risks were discussed with the patient. All questions were answered and informed consent was obtained. Patient identification and proposed procedure were verified by the physician in the pre-procedure area. Mental Status Examination: alert and oriented. Airway Examination: normal oropharyngeal airway and neck mobility. Respiratory Examination: clear to auscultation. CV Examination: normal. Prophylactic Antibiotics: The patient does not require prophylactic antibiotics. Prior Anticoagulants: The patient has taken no previous anticoagulant or antiplatelet agents. ASA Grade Assessment: II - A patient with mild systemic disease. After reviewing the risks and benefits, the patient was deemed in satisfactory condition to undergo the procedure. The anesthesia plan was to use moderate sedation / analgesia (conscious sedation). Immediately prior to administration of medications, the patient was re-assessed for adequacy to receive sedatives. The heart rate, respiratory rate, oxygen saturations, blood pressure, adequacy of pulmonary ventilation, and response to care were monitored throughout the procedure. The physical status of the patient was re-assessed after the procedure. After obtaining informed consent, the endoscope was passed under direct vision. Throughout the procedure, the patient's blood pressure, pulse, and oxygen saturations were monitored continuously.The upper GI endoscopy was accomplished without difficulty. The patient tolerated the procedure well. The gastroscope was introduced through the mouth, and advanced to the second part of duodenum. Moderate Sedation: Moderate (conscious) sedation was administered by the endoscopy nurse and supervised by the endoscopist. The patient's oxygen saturation, heart rate, blood pressure and response to care were monitored. Total physician intraservice time was 15 minutes. Scope In: 6:36:24 PM Scope Out: 6:43:09 PM Total Procedure Duration Time 0 hours 6 minutes 45 seconds Findings: LA Grade A (one or more mucosal breaks less than 5 mm, not extending between tops of 2 mucosal folds) esophagitis with no bleeding was found 34 to 38 cm from the incisors. Four oozing linear gastric ulcers with adherent clot were found in the gastric body. The largest lesion was 6 mm in largest dimension. For hemostasis, two hemostatic clips were successfully placed. There was no bleeding at the end of the procedure. A 5 mm non-bleeding diverticulum was found in the second portion of the duodenum. Grade I varices were found in the lower third of the esophagus. They were 5 mm in largest diameter. Many non-bleeding cratered duodenal ulcers with pigmented material were found in the entire duodenum. The largest lesion was 10 mm in largest dimension. 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 - LA Grade A reflux esophagitis. - Oozing gastric ulcers with adherent clot. Biopsied. Clips were placed. - Bleeding duodenal diverticulum. Recommendation: - [facility]. - Full liquid diet today. - Use sucralfate suspension 1 gram PO QID for 2 weeks. - No aspirin, ibuprofen, naproxen, or other non-steroidal anti-inflammatory drugs for 7 days. Procedure Code(s): --- Professional --- 50687, 59, Esophagogastroduodenoscopy, flexible, transoral; with control of bleeding, any method 96273, 59, Moderate sedation services provided by the same physician or other qualified health care navigator performing the diagnostic or therapeutic service that the sedation supports, requiring the presence of an independent trained observer to assist in the monitoring of the patient's level of consciousness and physiological status; initial 15 minutes of intraservice time, patient age 5 years or older CPT copyright 2017 [employer]. All rights reserved. The codes documented in this report are preliminary and upon content strategist review may be revised to meet current compliance requirements. Felix Acosta DO 11/26/2021 6:53:00 PM This report has been signed electronically. Number of Addenda: 1 Note Initiated On: 11/26/2021 11:43 AM Addendum Number: 1 Addendum Date: 06/16/2022 6:33:41 AM MAC was used as sedation for this procedure. Felix Acosta DO 06/16/2022 6:33:48 AM This report has been signed electronically.
--- NOTE | 2021-11-26 18:54 | OP.CCLET_ITS ---
06/16/2022 [address] [place] [address] Re : Upper GI endoscopy procedure for Destinyolga Parks Dear Dr. Pal This procedure was performed on November. 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 - LA Grade A reflux esophagitis. - Oozing gastric ulcers with adherent clot. Biopsied. Clips were placed. - Bleeding duodenal diverticulum. Recommendations : - [facility]. - Full liquid diet today. - Use sucralfate suspension 1 gram PO QID for 2 weeks. - No aspirin, ibuprofen, naproxen, or other non-steroidal anti-inflammatory drugs for 7 days. My findings are described in the full procedure note, which is enclosed. If I can be of further assistance, please feel free to contact me at . Sincerely, Felix Friend, 11/26/2021 6:53:00 PM This report has been signed electronically.
[2021-11-26] MEDS: Pravastatin 40 MG Tablet PO (22:39)
[2021-11-26] MEDS: Atenolol 100 MG Tablet PO (22:39)
[2021-11-26] MEDS: Levothyroxine 112 MCG Tablet PO (22:40)
[2021-11-26] MEDS: Paroxetine 20 MG Tablet 40 MG PO (22:40)
[2021-11-26] MEDS: rifAXIMin 550 MG Tablet PO (22:42)
[2021-11-27] VITALS (8 sets, daily range): BP systolic 121–182; BP diastolic 51–86; PULSE 68–99; RESP 18–28; TEMP 36.3–36.7; O2SAT 91–99
[2021-11-27] MEDS: Acetaminophen 325 MG Tablet 650 MG PO (00:58)
[2021-11-27 06:25] LABS: Absolute Lymphocyte Count 1.03 X10^3/uL (0.83-4.51); Absolute Neutrophil Count 6.1 X10^3/uL (2.0-7.7); Basophil# 0.03 X10^3/uL; Basophil% 0.4 % (0-1); Eosinophil# 0.05 X10^3/uL; Eosinophils% 0.6 % (0-5); Hematocrit 32.7 % (37-47); Hemoglobin 10.3 g/dL (12.0-15.0); Lymphocyte # 1.03 X10^3/ul (0.83-4.51); Lymphocyte % 13.3 % (19-41); Mean Corp Hgb Conc 31.5 g/dL (32-36); Mean Corpuscular Hgb 34.2 pg (27.0-32.0); Mean Corpuscular Volume 108.6 fL (81-99); Mean Platelet Vol. 9.5 fl (6.2-12.0); Monocyte# 0.44 X10^3/uL; Monocyte% 5.7 % (0-10); NRBC Flagged by Analyzer 0 % (0-5); Neutrophil # 6.12 X10^3/uL (2.7-7.7); Neutrophil % 79.2 % (47-70); Platelet Count 335 K/mm3 (150-450); RBC Distribution Width CV 13.7 % (11.6-14.6); RBC Distribution Width SD 54.7 fl (35.1-43.9); Red Blood Count 3.01 M/mm3 (4.2-5.4); White Blood Count 7.7 K/mm3 (4.4-11.0)
[2021-11-27 06:53] LABS: AST(SGOT) 14 U/L (15-37); Alanine Aminotransfer ALT/SGPT 10 U/L (13-56); Albumin, Serum 1.7 g/dL (3.2-5.0); Alkaline Phosphatase 61 U/L (45-117); Anion Gap 3 (5-15); BUN 53 mg/dL (7-18); BUN/Creat Ratio 19.7 RATIO (10-20); Bilirubin, Direct 0.13 mg/dL (0.00-0.30); Calcium,Total 8.5 mg/dL (8.5-10.1); Chloride 112 mmol/L (98-107); Creatinine, Serum 2.69 mg/dL (0.55-1.02); EST Glomerular Filtration Rate 18 mL/min (>60); Est Glom Filt Rate - Afr Amer 22 mL/min (>60); Estimated Creatinine Clearance 13.41 ml/min; Globulin 3.3 g/dL (2.2-4.2); Glucose 94 mg/dL (74-106); Potassium 4.7 mmol/L (3.5-5.1); Sodium Level 141 mmol/L (136-145)
--- NOTE | 2021-11-27 07:37 | PN.HOSP_ITS ---
Subjective Subjective Patient had blood in the stool last evening and last night. H&H 10.3/32 7.7%. Objective Data Objective Data Vital Signs: Vital Signs Temp Pulse Resp BP Pulse Ox 97.4 F L 68 18 121/67 H 97 11/27/21 01:31 11/27/21 01:31 11/27/21 01:31 11/27/21 01:31 11/27/21 01:31 Oxygen Flow Rate (L/min) 2 Oxygen Delivery Method Room Air Weight: 145 lb 11.609 oz Body Mass Index (BMI) 25.4 Intake & Output: Intake and Output for Last 24 Hours 11/25/21 11/26/21 11/27/21 23:59 23:59 23:59 Intake Total 2690 / 2790 1424.75 / 1424.75 Output Total 650 / 650 Balance 2040 / 2140 1424.75 / 1424.75 Lab / Micro Data Result Diagrams: 11/27/21 05:25 11/27/21 05:25 Labs: Laboratory Results - last 24 hr 11/26/21 06:22: Sodium 143, Potassium 4.5, Chloride 113 H, Carbon Dioxide 26.0, Anion Gap 4 L, BUN 47 H, Creatinine 2.43 H, Estim Creat Clear Calc 14.85, Est GFR (MDRD) Af Amer 25 L, Est GFR (MDRD) Non-Af 20 L, BUN/Creatinine Ratio 19.3, Glucose 108 H, Calcium 8.5, Total Creatine Kinase 54 11/26/21 14:43: Lactate Dehydrogenase 163 11/26/21 15:39: Ammonia 19.0 11/27/21 05:25: Sodium 141, Potassium 4.7, Chloride 112 H, Carbon Dioxide 26.0, Anion Gap 3 L, BUN 53 H, Creatinine 2.69 H, Estim Creat Clear Calc 13.41, Est GFR (MDRD) Af Amer 22 L, Est GFR (MDRD) Non-Af 18 L, BUN/Creatinine Ratio 19.7, Glucose 94, Calcium 8.5, Total Bilirubin 0.50, Direct Bilirubin 0.13, AST 14 L, ALT 10 L, Alkaline Phosphatase 61, Total Protein 5.0 L, Albumin 1.7 L, Globulin 3.3 11/27/21 05:25: WBC 7.7, RBC 3.01 L, Hgb 10.3 L, Hct 32.7 L, MCV 108.6 H, MCH 34.2 H, MCHC 31.5 L, RDW Std Deviation 54.7 H, RDW Coeff of Rene 13.7, Plt Count 335, MPV 9.5, Immature Gran % (Auto) 0.800, Neut % (Auto) 79.2 H, Lymph % (Auto) 13.3 L, [place] % (Auto) 5.7, Eos % (Auto) 0.6, Baso % (Auto) 0.4, Absolute Neuts (auto) 6.1, Absolute Lymphs (auto) 1.03, Nucleated RBC % 0 Micro: Microbiology 11/25/21 07:30 Stool Stool Occult Blood (HERMAN) - Final Occult Blood Positive Radiography Diagnostic Testing: Radiology Impression Renal Ultrasound 11/26/21 10:04 IMPRESSION: Findings consistent with nonspecific renal parenchymal disease. Small left renal cyst. No evidence for renal obstruction Electronically Signed: Jayce Husain MD at 17:01 EST Reading Location ID and State: [address] [place] [address] , Service support , Physical Exam Narrative General: Alert, awake and oriented x3. HEENT: Atraumatic, PERRLA, EOMI, Normocephalic Oral: Oral mucosa moist. No Gingival or Mucosal Lesions/ Ulcerations Neck: Supple, No JVD, Negative Carotid Bruits Lungs: Air entry diminished in bilateral lung bases. No crepitation/rhonchi Cardiovascular: Regular rate, Regular Rhythm, Normal S1, Normal S2, No murmurs Abdomen: Bowel Sounds Present, Soft, Non Tender, Non-Distended : No renal angle tenderness. No suprapubic tenderness. Extremities: Mild ankle pitting edema, Capillary Refill Less than 3 Seconds Skin: No rashes, No breakdown Musculoskeletal: No Tenderness to Palpation of Joints or Extremities. Muscle st rength 4+/5 at major joints. Mild weakness/disequilibrium in right foot after previous stroke Neurological: Cranial nerves II-XII grossly intact, DTR 2+/4. Psych/Mental Status: Flat affect, looks depressed. Assessment & Plan Assessment/Plan (1) Generalized weakness: PLAN: This 81-year-old female came to ER for recurrent fall 2 times in less than 24 hours along with generalized weakness 1. Generalized weakness, recurrent fall and acute encephalopathy on baseline depression possible dementia: [facility] PT OT ordered. IV fluid resuscitation. Possible etiologies include decreased muscle strength, disequilibrium/depression/chronic GI bleed/multiple chronic disease. Acute encephalopathy most probably metabolic along with polypharmacy and anemia 11/26: Acute encephalopathy resolved. She is alert, oriented x3 concordant. CK normal. 2 acute on chronic anemia possible due to GI blood loss/CKD: Hemoglobin is dropped to 10g% with her baseline around 14 in August 2021. Stool for occult blood positive. She had anemia in the past with her hemoglobin around 10 to 11 g%. Discussed with Dr. Acosta and consult requested. 11/26: Seen by GI. Plan for EGD today 11/27: EGD shows grade a reflux esophagitis, diverticulum in the upper third of esophagus and bleeding duodenal diverticulum. Oozing gastric ulcers with adherent clot, biopsied and clips placed. Full liquid diet. Sucralfate suspension 1 g p.o. 4 times daily for 2 weeks. No aspirin or NSAID or antiplatelet for 7 days. On IV PPI twice daily. B12 and folic acid ordered as MCV is high 108.6 fL 3. History of cirrhosis with intra and extrahepatic biliary dilatation, chronic narcotic use and chronic abdominal pain: The patient has history of cirrhosis AND chronic abdominal pain. Her abdominal pain was felt to be secondary to chronic narcotic use/functional/parietal pain. She had MRI abdomen on 09/01/2021 which showed moderate dilatation of extra and intrahepatic biliary duct and main pancreatic duct. Possible due to postcholecystectomy. She was recommended MRCP as an outpatient follow-up with Dr. Acosta. 11/26. Serum ammonia and LDH, alpha-fetoprotein ordered. INR 1.2. Patient is started on Xifaxan 550 mg p.o. twice daily along with lactulose 30 mL twice michaela y. CA 19-9 ordered. Recommended not to do ERCP because of concern of respiratory failure with history of COPD. She was admitted with acute hypoxic respiratory failure with intubation due to his known bacterial pneumonia and COPD exacerbation in August 2014. 11/27: Serum ammonia, LDH normal. Alpha-fetoprotein and CA 19-9 pending. TSH high. 4. Acute kidney injury on stage IIIb chronic kidney disease: Creatinine is 2.26. Baseline creatinine runs around 1.3-1.4. BUN 45. BUN/creatinine ratio is 20. IV fluid Ringer lactate is started as chloride is high. Serum sodium potassium bicarb in normal range. 11/26 seen by plate stacker. Patient has proteinuria 5. Dyslipidemia -Patient is on statin therapy, continued at home dose 6. CVA: Baby aspirin and statin continued. 7. Hypothyroidism - Patient is on levothyroxine home dose continued TSH high. Levothyroxine dose increased. Recheck TSH after 3 months 8. Depression with anxiety ?Patient is on SSRI as well as lorazepam as needed 9. Rheumatoid arthritis, decreased equilibrium and balance: 10. Hypertension: Blood pressure is controlled. Monitor blood pressure and adjust home medications as needed DVT prophylaxis: Bilateral SCDs. Pharmacological prophylaxis contraindicated Living will/advanced directive/end of life care: Patient does have living will or advanced directive. His brother is power of mergers and acquisitions attorney for health. After discussion of benefits/risks procedures involved with full code, DNR CC arrest and DNR CC, the patient's brother opted for DNRCC arrest with no intubation. Patient not alert and cognizant enough to make decision for Patient's brother doesn't want artificial life support including intubation, tube feed, ventilator and/chest compression, central venous catheter, vasopressor and DC shock if needed Total time spent in [id number] encounter in discussion of advanced directive 16 minutes. Charges/Coding Visit Charges Inpatient E&M: 41023 [facility] Hosp L2
[2021-11-27] MEDS: 0.9% Saline Lock 10 ML Syringe IV (08:11)
[2021-11-27] MEDS: rifAXIMin 550 MG Tablet PO ×2 (08:49→21:07)
[2021-11-27] MEDS: Lactated Ringers 1,000 ML 100 ML IV ×2 (08:53→18:44)
--- NOTE | 2021-11-27 09:48 | PN.RENAL_ITS ---
Subjective Subjective Resting quietly in bed. No overnight events. Patient's brother at bedside. Objective Data Objective Data Vital Signs: Vital Signs Temp Pulse Resp BP Pulse Ox 97.4 F L 99 20 H 150/57 H 99 11/27/21 08:36 11/27/21 08:36 11/27/21 08:36 11/27/21 08:36 11/27/21 08:36 Oxygen Flow Rate (L/min) 2 Oxygen Delivery Method Nasal Cannula Weight: 66.1 kg Body Mass Index (BMI) 25.4 Intake & Output: Intake and Output for Last 24 Hours 11/25/21 11/26/21 11/27/21 23:59 23:59 23:59 Intake Total 2690 / 2790 1424.75 / 1424.75 110.25 / 110.25 Output Total 650 / 650 Balance 2040 / 2140 1424.75 / 1424.75 110.25 / 110.25 Lab / Micro Data Result Diagrams: 11/27/21 05:25 11/27/21 05:25 Labs: Laboratory Results - last 24 hr 11/26/21 14:43: Lactate Dehydrogenase 163 11/26/21 15:39: Ammonia 19.0 11/27/21 05:25: Sodium 141, Potassium 4.7, Chloride 112 H, Carbon Dioxide 26.0, Anion Gap 3 L, BUN 53 H, Creatinine 2.69 H, Estim Creat Clear Calc 13.41, Est GFR (MDRD) Af Amer 22 L, Est GFR (MDRD) Non-Af 18 L, BUN/Creatinine Ratio 19.7, Glucose 94, Calcium 8.5, Total Bilirubin 0.50, Direct Bilirubin 0.13, AST 14 L, ALT 10 L, Alkaline Phosphatase 61, Total Protein 5.0 L, Albumin 1.7 L, Globulin 3.3 11/27/21 05:25: WBC 7.7, RBC 3.01 L, Hgb 10.3 L, Hct 32.7 L, MCV 108.6 H, MCH 34.2 H, MCHC 31.5 L, RDW Std Deviation 54.7 H, RDW Coeff of Rene 13.7, Plt Count 335, MPV 9.5, Immature Gran % (Auto) 0.800, Neut % (Auto) 79.2 H, Lymph % (Auto) 13.3 L, [place] % (Auto) 5.7, Eos % (Auto) 0.6, Baso % (Auto) 0.4, Absolute Neuts (auto) 6.1, Absolute Lymphs (auto) 1.03, Nucleated RBC % 0 Micro: Microbiology 11/25/21 07:30 Stool Stool Occult Blood (HERMAN) - Final Occult Blood Positive Radiography Diagnostic Testing: Radiology Impression Renal Ultrasound 11/26/21 10:04 IMPRESSION: Findings consistent with nonspecific renal parenchymal disease. Small left renal cyst. No evidence for renal obstruction Electronically Signed: Jayce Husain MD at 17:01 EST Reading Location ID and State: [facility] / [place] , Service support , Physical Exam Narrative Const: Alert and oriented x3 HEENT: Head is normocephalic, oral mucosa is dry, lips dry Respiratory: Lung sounds clear anteriorly and posteriorly : Abdomen soft, nontender, positive bowel sounds x4 quadrants Extremities: No pitting edema Assessment & Plan Assessment/Plan (1) JAZ (acute kidney injury): (2) Generalized weakness: (3) Anemia: (4) Essential hypertension: PLAN: - Nonoliguric, hypovolemic JAZ on CKD stage 3 likely prerenal. Baseline creatinine since 2013 has been ranging around 1 to 1.3 mg/dL. C reatinine was 1.3 mg/dL 09/01/2021. Admission Creatinine 2.2 mg/dL--> 2.4 mg/dL--> today SCr 2.69mg/dL. Continue on IVF. Patient agreeable for paz. Renal ultrasound no hydro, renal parenchymal disease. Normal CPK. urine culture pending, UA showed +protein 500 and blood but previous UA minimal blood and protein. Blood pressures acceptable. No acute indication for FILLER SHREDDER HELPER. I spoke to patient's brother yesterday and again today and he stated should patient need FILLER SHREDDER HELPER family would not be in agreement as they do not want aggressive treatment. - GI following. EGD yesterday showed oozing gastric ulcers, biopsied and bleeding duodenal diverticulum. 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 hgb stable
--- NOTE | 2021-11-27 10:41 | CASEMGMT ---
Discharge Spinning Machine Operator Annelise from [facility] called and declined patient. ALEXIS Wyman notified. Alaina Evangelista Discharge Spinning Machine Operator
--- NOTE | 2021-11-27 10:54 | CASEMGMT ---
Social Work Note ALEXIS back to speak with pt's brother Ulysses. ALEXIS met with Ulysses outside of pt's room. Ulysses states he spoke with the physician last night and the results from the scopes were not good. Ulysses said he is waiting to speak with the physician who completed the scopes to gather additional information. Ulysses mentioned Hospice and asked if pt could get Hospice services at [facility]. ALEXIS informed Ulysses that that is not an option. If they wanted to pursue Hospice it would likely be home with Hospice vs ECF with Hospice. ALEXIS explained that ECF with Hospice would be private pay for room and board until pt's Medicaid is active. ALEXIS informed Ulysses that pt could still admit to SNF skilled initially since pt has 29 days left under Medicare and then once further tests/results come back, they could decide on Hospice at SNF. Ulysses states that would be fine too. ALEXIS asked Ulysses if he decided on SNF yet and Ulysses states no. Ulysses states the two option that has accepted pt, some of his friends had said one of them was not the best. Ulysses states he has the lists at home and will have a decision on SNF this afternoon for pt. ALEXIS informed Ulysses that a decision needs to be made today regarding SNF for pt as pt could discharge over the weekend. ALEXIS then received call that [facility] is not able to accept pt. ALEXIS in to speak with Ulysses. ALEXIS updated Ulysses that [facility] is not able to accept pt. ALEXIS explained that [facility] and [facility] are both able to accept pt. Ulysses told this worker just pick one. ALEXIS informed Ulysses that this worker cannot pick one, that decision needs to come from family. Ulysses states [facility]. Ulysses states he will go visit the facility here soon. ALEXIS placed a call to pt's sister Solo and updated her on Ulysses's decision for [facility]. Solo states she is aware that the physician called Ulysses late at night to discuss the findings and there was talk of possible dialysis and Solo states they would not want that if pt needed it. ALEXIS explained that pt can go to [facility] initially skilled and then if Hospice was needed later, they could switch pt over to Hospice care. Solo states understanding, agreeable to [facility]. ALEXIS placed a call to Elly at [facility] and left message that pt's family has decided on [facility]. ALEXIS faxed updated clinicals to [facility]. Plan: [facility] skilled Zamzam Perknis MSW, FINANCIAL ADVISOR TRAINEE
[2021-11-27] MEDS: Sucralfate 1 GM Tablet PO ×3 (11:07→21:07)
--- NOTE | 2021-11-27 12:17 | CASEMGMT ---
Social Work Note SW in to speak with pt. SW introduced self and role at [facility]. SW informed pt that this worker has been working with her brother Ulysses and sister Solo regarding SNF placement. SW informed pt that she will be going to [facility]. Pt states understanding. Plan: [facility] skilled Zamzam Perkins SETTER MOLDING AND COREMAKING MACHINES, ART MANAGER
--- NOTE | 2021-11-27 16:11 | CASEMGMT ---
Social Work Note SW placed Green Sheet, transport forms, COVID tool on pt's chart. Plan: [facility] skilled when medically cleared Zamzam Perkins WAREHOUSE SHIFT SUPERVISOR, OTOLARYNGOLOGY NURSE
--- NOTE | 2021-11-27 18:44 | PN_ITS ---
Subjective Subjective She underwent an upper endoscopy yesterday. She is eating without any abdominal pain. Objective Data Objective Data Vital Signs: Vital Signs Temp Pulse Resp BP Pulse Ox 97.4 F L 75 18 144/55 H 98 11/27/21 14:47 11/27/21 14:47 11/27/21 14:47 11/27/21 14:47 11/27/21 14:47 Oxygen Flow Rate (L/min) 2 Oxygen Delivery Method Nasal Cannula Weight: 145 lb 11.609 oz Body Mass Index (BMI) 25.4 Intake & Output: Intake and Output for Last 24 Hours 11/25/21 11/26/21 11/27/21 23:59 23:59 23:59 Intake Total 2690 / 2790 1424.75 / 1424.75 1215.25 / 1215.25 Output Total 650 / 650 75 / 75 Balance 2040 / 2140 1424.75 / 1424.75 1140.25 / 1140.25 Lab / Micro Data Result Diagrams: 11/27/21 05:25 11/27/21 05:25 Labs: Laboratory Results - last 24 hr 11/27/21 05:25: Sodium 141, Potassium 4.7, Chloride 112 H, Carbon Dioxide 26.0, Anion Gap 3 L, BUN 53 H, Creatinine 2.69 H, Estim Creat Clear Calc 13.41, Est GF R (MDRD) Af Amer 22 L, Est GFR (MDRD) Non-Af 18 L, BUN/Creatinine Ratio 19.7, Glucose 94, Calcium 8.5, Total Bilirubin 0.50, Direct Bilirubin 0.13, AST 14 L, ALT 10 L, Alkaline Phosphatase 61, Total Protein 5.0 L, Albumin 1.7 L, Globulin 3.3 11/27/21 05:25: WBC 7.7, RBC 3.01 L, Hgb 10.3 L, Hct 32.7 L, MCV 108.6 H, MCH 34.2 H, MCHC 31.5 L, RDW Std Deviation 54.7 H, RDW Coeff of Rene 13.7, Plt Count 335, MPV 9.5, Immature Gran % (Auto) 0.800, Neut % (Auto) 79.2 H, Lymph % (Auto) 13.3 L, [place] % (Auto) 5.7, Eos % (Auto) 0.6, Baso % (Auto) 0.4, Absolute Neuts (auto) 6.1, Absolute Lymphs (auto) 1.03, Nucleated RBC % 0 11/27/21 05:25: Folate 4.10 Micro: Microbiology 11/25/21 07:30 Urine, Catheterized Urine Culture - Preliminary Culture exhibits no growth. 11/25/21 07:30 Stool Stool Occult Blood (HERMAN) - Final Occult Blood Positive Physical Exam Const alert General Appearance: cooperative Orientation / Consciousness: oriented to person HEENT hearing grossly normal bilaterally Head and Scalp: normal to inspection Face and Sinus: face symmetric Nose: external nose normal Mouth: oral and palatal mucosa normal Eyes conjunctivae normal General Eye: normal appearance of both eyes Neck full ROM General: normal visual inspection Lymph Lymphatic: no lymphadenopathy noted Chest inspection of chest normal and palpation of chest normal Chest: symmetrical chest wall rise Resp normal respiratory effort Effort and Inspection: able to speak in complete sentences Cardio regular rate GI non-distended Percussion: normal to percussion Rectal Exam: deferred Neuro Speech: speech normal Gait (Neuro): normal gait Assessment & Plan Assessment/Plan (1) Anemia: PLAN: Anemia secondary to upper GI bleed from multiple gastric ulcers and multiple ulcers in the duodenum. Status post endoscopic treatment. Her hemoglobin is slightly down today at 10.3 from 11 mg/dL yesterday. Recommend to keep an eye on her H&H and continue Protonix and Carafate previously ordered. We may have to stop the Carafate and decrease her Protonix if her creatinine continues to rise. (2) Cirrhosis: PLAN: At this time she is decompensated cirrhosis with an upper GI bleed. I would recommend Xifaxan 550 mg twice a day or lactulose 10 cc twice daily. Poor prognosis. Current meld is 20. I had a long conversation with her brother regarding her prognosis with cirrhosis in the setting of chronic renal failure problem possibly secondary to hepatorenal syndrome. If her creatinine continues to go up we will decrease her acid suppression and start her on midodrine. Charges/Coding Visit Charges Inpatient E&M: 79306 Subs Hosp L2
[2021-11-27] MEDS: Atenolol 100 MG Tablet PO (21:07)
[2021-11-27] MEDS: Paroxetine 20 MG Tablet 40 MG PO (21:07)
[2021-11-27] MEDS: Senna/Docusate Sodium 1 Tablet 2 TABLET PO (21:07)
[2021-11-27] MEDS: Pravastatin 40 MG Tablet PO (21:07)
[2021-11-27] MEDS: Levothyroxine 150 MCG Tablet PO (21:08)
[2021-11-27] MEDS: Albuterol 2.5 MG/3 ML VIAL.NEB. INHALATION (21:29)
[2021-11-28 03:54] VITALS: BP 145/58; PULSE 68; RESP 24; TEMP 36.6; O2SAT 99
[2021-11-28 06:30] LABS: Absolute Lymphocyte Count 1.59 X10^3/uL (0.83-4.51); Absolute Neutrophil Count 5.7 X10^3/uL (2.0-7.7); Basophil# 0.04 X10^3/uL; Basophil% 0.5 % (0-1); Eosinophil# 0.06 X10^3/uL; Eosinophils% 0.8 % (0-5); Hematocrit 33.8 % (37-47); Hemoglobin 10.5 g/dL (12.0-15.0); Lymphocyte # 1.59 X10^3/ul (0.83-4.51); Lymphocyte % 19.9 % (19-41); Mean Corp Hgb Conc 31.1 g/dL (32-36); Mean Corpuscular Hgb 33.7 pg (27.0-32.0); Mean Corpuscular Volume 108.3 fL (81-99); Mean Platelet Vol. 9.2 fl (6.2-12.0); Monocyte# 0.51 X10^3/uL; Monocyte% 6.4 % (0-10); NRBC Flagged by Analyzer 0 % (0-5); Neutrophil # 5.72 X10^3/uL (2.7-7.7); Neutrophil % 71.6 % (47-70); Platelet Count 380 K/mm3 (150-450); RBC Distribution Width CV 13.6 % (11.6-14.6); RBC Distribution Width SD 53.9 fl (35.1-43.9); Red Blood Count 3.12 M/mm3 (4.2-5.4)
[2021-11-28 06:54] LABS: AST(SGOT) 16 U/L (15-37); Alanine Aminotransfer ALT/SGPT 10 U/L (13-56); Albumin, Serum 1.8 g/dL (3.2-5.0); Alkaline Phosphatase 57 U/L (45-117); Anion Gap 4 (5-15); BUN 56 mg/dL (7-18); BUN/Creat Ratio 19.6 RATIO (10-20); Bilirubin, Direct 0.09 mg/dL (0.00-0.30); Chloride 113 mmol/L (98-107); Creatinine, Serum 2.86 mg/dL (0.55-1.02); EST Glomerular Filtration Rate 17 mL/min (>60); Est Glom Filt Rate - Afr Amer 20 mL/min (>60); Estimated Creatinine Clearance 12.62 ml/min; Globulin 3.3 g/dL (2.2-4.2); Glucose 117 mg/dL (74-106); Potassium 4.6 mmol/L (3.5-5.1); Protein, Total 5.1 g/dL (6.4-8.2); Sodium Level 141 mmol/L (136-145)
--- NOTE | 2021-11-28 07:40 | DS.PCM_ITS ---
Providers Date of Admission: 11/25/21 Primary Care Physician: Dr. Mina Pal MD Consultations 11/25/21 10:13 Consult: Gastroenterology Routine Consulting Provider: [facility] Reason for Consult: stool occult blood positive, anemia EMERGENT Consult: No Notified: Yes Date Notified: 11/25/21 Time Notified: 09:07 Method of Notification: Text 11/25/21 12:11 Consult: Nephrology Routine Consulting Provider: Annette Guadarrama Reason for Consult: Acute on CKD G3 EMERGENT Consult: No Notified: Yes Date Notified: 11/25/21 Time Notified: 12:11 Method of Notification: Verbal Reason For Visit: GI BLEED Diagnosis Discharge Diagnosis (1) Anemia: Status: Acute Code(s): D64.9 - Anemia, unspecified (2) Cirrhosis: Status: Acute Code(s): K74.60 - Unspecified cirrhosis of liver Medications at Discharge Home Medications pravastatin 40 mg PO QHS 09/02/14 atenolol 100 mg PO QHS 04/17/18 hydrochlorothiazide 25 mg PO QHS 04/17/18 aspirin 81 mg PO QHS 08/01/18 levothyroxine 112 mcg PO QHS 08/27/21 paroxetine HCl 40 mg PO QHS 08/27/21 acetaminophen [Tylenol] 650 mg PO Q6H PRN PRN #0 tab 09/01/21 albuterol sulfate 2.5 mg INHALATION Q2H PRN PRN #0 ml 09/01/21 guaifenesin 20 ml PO Q4H PRN PRN #0 ml 09/01/21 lorazepam 1 mg PO BID PRN #6 tab 09/01/21 Weight / BMI Weight Weight: 154 lb 15.759 oz Body Mass Index (BMI) 25.4 ABG / Lab / Microbiology Data Result Diagrams: 11/28/21 06:12 11/28/21 06:12 Laboratory: Laboratory Results - last 24 hr 11/27/21 05:25: Folate 4.10 11/28/21 06:12: Sodium 141, Potassium 4.6, Chloride 113 H, Carbon Dioxide 24.0, Anion Gap 4 L, BUN 56 H, Creatinine 2.86 H, Estim Creat Clear Calc 12.62, Est GFR (MDRD) Af Amer 20 L, Est GFR (MDRD) Non-Af 17 L, BUN/Creatinine Ratio 19.6, Glucose 117 H, Calcium 8.0 L, Phosphorus 4.0, Total Bilirubin 0.30, Direct Bilirubin 0.09, AST 16, ALT 10 L, Alkaline Phosphatase 57, Total Protein 5.1 L, Albumin 1.8 L, Globulin 3.3 11/28/21 06:12: WBC 8.0, RBC 3.12 L, Hgb 10.5 L, Hct 33.8 L, MCV 108.3 H, MCH 33.7 H, MCHC 31.1 L, RDW Std Deviation 53.9 H, RDW Coeff of Rene 13.6, Plt Count 380, MPV 9.2, Immature Gran % (Auto) 0.800, Neut % (Auto) 71.6 H, Lymph % (Auto) 19.9, [place] % (Auto) 6.4, Eos % (Auto) 0.8, Baso % (Auto) 0.5, Absolute Neuts (auto) 5.7, Absolute Lymphs (auto) 1.59, Nucleated RBC % 0 Microbiology: Microbiology 11/25/21 07:30 Urine, Catheterized Urine Culture - Preliminary Culture exhibits no growth. 11/25/21 07:30 Stool Stool Occult Blood (HERMAN) - Final Occult Blood Positive Discharge Plan Admission Admit Date/Time: 11/25/21 07:59 Attending Provider: Antonio Fabian Primary Care Provider: Mian Pal Consulting Providers: Annette Guadarrama Discharge Orders/Prescriptions Prescriptions: No Action pravastatin 40 MG tablet 40 mg PO QHS RF: 0 atenolol 100 MG tablet 100 mg PO QHS RF: 0 hydrochlorothiazide 25 MG tablet 25 mg PO QHS RF: 0 aspirin 81 MG tablet,chewable 81 mg PO QHS RF: 0 paroxetine HCl 40 mg tablet 40 mg PO QHS RF: 0 levothyroxine 112 mcg tablet 112 mcg PO QHS RF: 0 guaifenesin 100 mg/5 mL Liquid 20 ml PO Q4H PRN PRN (Reason: COUGH) Qty: 0 RF: 0 acetaminophen [Tylenol] 325 mg Tablet 650 mg PO Q6H PRN PRN (Reason: Pain Score 1-10/Temp > 100.7 F) Qty: 0 RF: 0 albuterol sulfate 2.5 mg /3 mL (0.083 %) Solution For Nebulization 2.5 mg inhalation Q2H PRN PRN (Reason: Shortness of Breath/Wheezing) Qty: 0 RF: 0 lorazepam 1 mg Tablet 1 mg PO BID PRN (Reason: Anxiety) Qty: 6 RF: 0
[2021-11-28 08:09] VITALS: BP 160/65; PULSE 64; RESP 18; TEMP 36.6; O2SAT 95
[2021-11-28] MEDS: rifAXIMin 550 MG Tablet PO (08:13)
[2021-11-28 08:25] VITALS: O2SAT 95
--- NOTE | 2021-11-28 08:33 | PCM.TXEXTCAR ---
Diet 11/27/21 07:40 Diet: Full Liquid Type of Dietary Supplement:: Ensure Clear Is pt able to select menu?: No Diet Comments: 120 ml ensure clear TID w/ meals Tube Feed: Clear liquid diet today then advance to soft diet from tomorrow for next Routine Orders/Code Status Suppository Type: Dulcolax 10mg Suppository Frequency: Daily PRN Routine Lab Work: CBC and BMP (Daily for kidney failure) Code Status: DNRCC-A Wound(s) left forearm: Wound Type: Skin Tear Dressing Change: Adaptic Therapies Weight Bearing: Weight bearing as tolerated Extremity Affected:: Bilateral Lower Physical Therapy: Eval and Treat Occupational Therapy: Eval and Treat Speech Therapy: Eval and Treat Problem/Diagnosis (1) Anemia: Status: Acute (2) Cirrhosis: Status: Acute Allergies/Procedures Done in Hospital Allergies Corticosteroids (Glucocorticoids) Allergy (Verified 11/25/21 06:23) Swelling codeine Adverse Reaction (Verified 11/25/21 06:23) Other cortisone [Cortisone] Adverse Reaction (Verified 11/25/21 06:23) Swelling morphine Adverse Reaction (Verified 11/25/21 06:23) Other Type of Care/Length of Stay Estimated LOS: Convalescent Care Less Than 30 days Type of Care Needed: Skilled Rehab Potential: Fair Prognosis: Fair Additional Orders/Day of Discharge Day of Discharge: 11/28/21 Dietary and Speech Recommendations Dietitian Recommendations/Changes: Continue Cardiac diet as ordered. Will offer 120 ml ensure clear TID w/ meals as tolerated. Monitor need to restrict protein due to renal dysfunction/CKD. Adjust ONS as needed once PO adequacy established at meals. Discharge Plan Admission Admit Date/Time: 11/25/21 07:59 Primary Reason for Your Visit: GI bleed, acute kidney injury on CKD stage IIIb Attending Provider: Antonio Fabian Primary Care Provider: Mian Pal Consulting Providers: Annette Guadarrama Discharge Orders/Prescriptions Prescriptions: New sucralfate 1 gram Tablet 1 g PO 1HR_ACHS Qty: 0 RF: 0 sennosides-docusate sodium [Stool Softener-Stimulant Laxat] 8.6-50 mg Tablet 2 tab PO BID PRN (Reason: constipation) Qty: 0 RF: 0 Xifaxan 550 mg Tablet 550 mg PO BID Qty: 0 RF: 0 levothyroxine 150 mcg Tablet 150 mcg PO QHS Qty: 0 RF: 0 lactulose 20 gram/30 mL Solution 20 g PO BID Qty: 0 RF: 0 pantoprazole [Protonix] 40 mg tablet,delayed release (DR/EC) 40 mg PO BID Qty: 60 RF: 1 Continued pravastatin 40 MG tablet 40 mg PO QHS RF: 0 paroxetine HCl 40 mg tablet 40 mg PO QHS RF: 0 guaifenesin 100 mg/5 mL Liquid 20 ml PO Q4H PRN PRN (Reason: COUGH) Qty: 0 RF: 0 acetaminophen [Tylenol] 325 mg Tablet 650 mg PO Q6H PRN PRN (Reason: Pain Score 1-10/Temp > 100.7 F) Qty: 0 RF: 0 albuterol sulfate 2.5 mg /3 mL (0.083 %) Solution For Nebulization 2.5 mg inhalation Q2H PRN PRN (Reason: Shortness of Breath/Wheezing) Qty: 0 RF: 0 atenolol 100 MG tablet 100 mg PO QHS Qty: 0 RF: 0 Changed lorazepam 1 mg Tablet 0.5 mg PO BID PRN (Reason: Anxiety) Qty: 6 RF: 0 Held aspirin 81 MG tablet,chewable 81 mg PO QHS RF: 0 Hold Instructions: Hold aspirin until 12/03/2021. No NSAIDs Discontinued hydrochlorothiazide 25 MG tablet 25 mg PO QHS RF: 0 levothyroxine 112 mcg tablet 112 mcg PO QHS RF: 0 Referrals / Follow Up: Annette Guadarrama MD [STAFF PHYSICIAN] - Within 1 Week (Patient has acute continuous CKD stage III. Creatinine is high) Mian Pal MD [Primary Care Provider] - Within 2 Weeks Felix Acosta DO [STAFF PHYSICIAN] - Within 1 Month Disposition Disposition (needs filled in before D/C Order can be placed): Intermediate Facility
[2021-11-28 09:19] LABS: AFP, Tumor Marker < 0.9 ng/mL (0.0-9.2); Carbohydrate AG 19-9 8 U/mL (0-35)
--- NOTE | 2021-11-28 11:45 | PCM.DC.SUM ---
Providers Date of Admission: 11/25/21 Date of Discharge: 11/28/21 Primary Care Physician: Dr. Mian Pal MD Consultations 11/25/21 10:13 Consult: Gastroenterology Routine Consulting Provider: [facility] Reason for Consult: stool occult blood positive, anemia EMERGENT Consult: No Notified: Yes Date Notified: 11/25/21 Time Notified: 09:07 Method of Notification: Text 11/25/21 12:11 Consult: Nephrology Routine Consulting Provider: Annette Guadarrama Reason for Consult: Acute on CKD G3 EMERGENT Consult: No Notified: Yes Date Notified: 11/25/21 Time Notified: 12:11 Method of Notification: Verbal Reason For Visit: GI BLEED Diagnosis Discharge Diagnosis (1) Anemia: Status: Acute Code(s): D64.9 - Anemia, unspecified (2) Cirrhosis: Status: Acute Code(s): K74.60 - Unspecified cirrhosis of liver Medications at Discharge Home Medications pravastatin 40 mg PO QHS 09/02/14 aspirin 81 mg PO QHS 08/01/18 paroxetine HCl 40 mg PO QHS 08/27/21 acetaminophen [Tylenol] 650 mg PO Q6H PRN PRN #0 tab 09/01/21 albuterol sulfate 2.5 mg INHALATION Q2H PRN PRN #0 ml 09/01/21 guaifenesin 20 ml PO Q4H PRN PRN #0 ml 09/01/21 atenolol 100 mg PO QHS #0 tab 11/28/21 lactulose 20 g PO BID #0 ml 11/28/21 levothyroxine 150 mcg PO QHS #0 tab 11/28/21 lorazepam 0.5 mg PO BID PRN #6 tab 11/28/21 pantoprazole [Protonix] 40 mg PO BID #60 tab 11/28/21 rifaximin [Xifaxan] 550 mg PO BID #0 tab 11/28/21 sennosides-docusate sodium [Stool Softener-Stimulant Laxat] 2 tab PO BID PRN #0 tab 11/28/21 sucralfate 1 g PO 1HR_ACHS #0 tab 11/28/21 Hospital Course Summary of Care Provided Hospital Course: This 81-year-old female came to ER for recurrent fall 2 times in less than 24 hours along with generalized weakness, slow upper GI bleed and acute on chronic anemia. Hospital course as detailed assessment, evaluation and management as follows 1. Generalized weakness, recurrent fall and acute encephalopathy on baseline depression possible dementia: Patient recently discharged from long-term on 11/20/2020. PT OT ordered. IV fluid resuscitation. Possible etiologies include decreased muscle strength, disequilibrium/depression/chronic GI bleed/multiple chronic disease. Acute encephalopathy most probably metabolic along with polypharmacy and anemia 11/26: Acute encephalopathy resolved. She is alert, oriented x3 concordant. CK normal. 2 acute on chronic anemia possible due to GI blood loss/CKD: Hemoglobin is dropped to 10g% with her baseline around 14 in August 2021. Stool for occult blood positive. She had anemia in the past with her hemoglobin around 10 to 11 g%. Discussed with Dr. Acosta and consult requested. 11/26: Seen by GI. Plan for EGD today 11/27: EGD shows grade a reflux esophagitis, diverticulum in the upper third of esophagus and bleeding duodenal diverticulum. Oozing gastric ulcers with adherent clot, biopsied and clips placed. Full liquid diet. Sucralfate suspension 1 g p.o. 4 times daily for 2 weeks. No aspirin or NSAID or antiplatelet for 7 days. On IV PPI twice daily. B12 and folic acid ordered as MCV is high 108.6 fL 11/28: 12 more days of Carafate. Protonix 40 mg twice daily for 8 weeks and then once daily. Folate normal. B12 pendingPrescription for Protonix sent to patient's pharmacy. 3. History of cirrhosis with intra and extrahepatic biliary dilatation, chronic narcotic use and chronic abdominal pain: The patient has history of cirrhosis AND chronic abdominal pain. Her abdominal pain was felt to be secondary to chronic narcotic use/functional/parietal pain. She had MRI abdomen on 09/01/2021 which showed moderate dilatation of extra and intrahepatic biliary duct and main pancreatic duct. Possible due to postcholecystectomy. She was recommended MRCP as an outpatient follow-up with Dr. Acosta. 11/26. Serum ammonia and LDH, alpha-fetoprotein ordered. INR 1.2. Patient is started on Xifaxan 550 mg p.o. twice daily along with lactulose 30 mL twice daily. CA 19-9 ordered. Recommended not to do ERCP because of concern of respiratory failure with history of COPD. She was admitted with acute hypoxic respiratory failure with intubation due to his known bacterial pneumonia and COPD exacerbation in August 2014. 11/27: Serum ammonia, LDH normal. 11/28. CA 19-9 and AFP normal. 4. Acute kidney injury on stage IIIb chronic kidney disease possible hepatorenal syndrome with upper GI bleed: Creatinine is 2.26. Baseline creatinine runs around 1.3-1.4. BUN 45. BUN/creatinine ratio is 20. IV fluid Ringer lactate is started as chloride is high. Serum sodium potassium bicarb in normal range. 11/26 seen by disc pad knockout worker. Patient has proteinuria 11/28: Creatinine is increasing. Discussed with the disc pad knockout worker in early follow-up with Dr. Guadarrama in 1 week. Medications adjusted and nephrotoxic medications were checked. Currently patient not on any nephrotoxic medications 5. Dyslipidemia -Patient is on statin therapy, continued at home dose 6. CVA: Baby aspirin and statin continued. 7. Hypothyroidism - Patient is on levothyroxine home dose continued TSH high. Levothyroxine dose increased. Recheck TSH after 3 months 8. Depression with anxiety ?Patient is on SSRI as well as lorazepam as needed 9. Rheumatoid arthritis, decreased equilibrium and balance: 10. Hypertension: Blood pressure is controlled. Monitor blood pressure and adjust home medications as needed DVT prophylaxis: Bilateral SCDs. Pharmacological prophylaxis contraindicated Discharge medication reconciliation done. Discharge follow-up instructions completed. Discharge process discussed with the patient and all questions were answered to patient's satisfaction. Discharged to SNF Total time spent, exact 35 minutes on discharge meds reconciliation, examination, coordination of care with nurses and ancillary staff, review of imaging and blood test and discussion with the patient on follow-up instructions. Living will/advanced directive/end of life care: Patient does have living will or advanced directive. His brother is power of employment attorney for health. After discussion of benefits/risks procedures involved with full code, DNR CC arrest and DNR CC, the patient's brother opted for DNRCC arrest with no intubation. Patient not alert and cognizant enough to make decision for Patient's brother doesn't want artificial life support including intubation, tube feed, ventilator and/chest compression, central venous catheter, vasopressor and DC shock if needed Total time spent in [id number] encounter in discussion of advanced directive 16 minutes. Physical Exam Narrative Seen and examined. GI bleed has stopped. Patient had 3 days of IV Protonix 40 mg twice daily and is on Carafate General: Alert, awake and oriented x3. HEENT: Atraumatic, PERRLA, EOMI, Normocephalic Oral: Oral mucosa moist. No Gingival or Mucosal Lesions/ Ulcerations Neck: Supple, No JVD, Negative Carotid Bruits Lungs: Air entry diminished in bilateral lung bases. No crepitation/rhonchi Cardiovascular: Regular rate, Regular Rhythm, Normal S1, Normal S2, No murmurs Abdomen: Bowel Sounds Present, Soft, Non Tender, Non-Distended : No renal angle tenderness. No suprapubic tenderness. Extremities: Mild ankle pitting edema, Capillary Refill Less than 3 Seconds Skin: No rashes, No breakdown Musculoskeletal: No Tenderness to Palpation of Joints or Extremities. Muscle strength 4+/5 at major joints. Mild weakness/disequilibrium in right foot after previous stroke Neurological: Cranial nerves II-XII grossly intact, DTR 2+/4. Psych/Mental Status: Flat affect, looks depressed. Weight / BMI Weight Weight: 154 lb 15.759 oz Body Mass Index (BMI) 25.4 ABG / Lab / Microbiology Data Result Diagrams: 11/28/21 06:12 11/28/21 06:12 Laboratory: Laboratory Results - last 24 hr 11/27/21 05:25: Tumor Marker AFP < 0.9, CA 19-9 Antigen 8 11/27/21 05:25: Folate 4.10 11/28/21 06:12: Sodium 141, Potassium 4.6, Chloride 113 H, Carbon Dioxide 24.0, Anion Gap 4 L, BUN 56 H, Creatinine 2.86 H, Estim Creat Clear Calc 12.62, Est GFR (MDRD) Af Amer 20 L, Est GFR (MDRD) Non-Af 17 L, BUN/Creatinine Ratio 19.6, Glucose 117 H, Calcium 8.0 L, Phosphorus 4.0, Total Bilirubin 0.30, Direct Bilirubin 0.09, AST 16, ALT 10 L, Alkaline Phosphatase 57, Total Protein 5.1 L, Albumin 1.8 L, Globulin 3.3 11/28/21 06:12: WBC 8.0, RBC 3.12 L, Hgb 10.5 L, Hct 33.8 L, MCV 108.3 H, MCH 33.7 H, MCHC 31.1 L, RDW Std Deviation 53.9 H, RDW Coeff of Rene 13.6, Plt Count 380, MPV 9.2, Immature Gran % (Auto) 0.800, Neut % (Auto) 71.6 H, Lymph % (Auto) 19.9, [place] % (Auto) 6.4, Eos % (Auto) 0.8, Baso % (Auto) 0.5, Absolute Neuts (auto) 5.7, Absolute Lymphs (auto) 1.59, Nucleated RBC % 0 Microbiology: Microbiology 11/25/21 07:30 Urine, Catheterized Urine Culture - Final Culture exhibits no growth. 11/25/21 07:30 Stool Stool Occult Blood (HERMAN) - Final Occult Blood Positive Meaningful Use Info Meaningful Use Diagnoses (Choose all that apply): None applicable Discharge Plan Admission Admit Date/Time: 11/25/21 07:59 Primary Reason for Your Visit: GI bleed, acute kidney injury on CKD stage IIIb Attending Provider: Antonio Fabian Primary Care Provider: Mian Pal Consulting Providers: Annette Guadarrama Discharge Orders/Prescriptions Prescriptions: New sucralfate 1 gram Tablet 1 g PO 1HR_ACHS Qty: 0 RF: 0 sennosides-docusate sodium [Stool Softener-Stimulant Laxat] 8.6-50 mg Tablet 2 tab PO BID PRN (Reason: constipation) Qty: 0 RF: 0 Xifaxan 550 mg Tablet 550 mg PO BID Qty: 0 RF: 0 levothyroxine 150 mcg Tablet 150 mcg PO QHS Qty: 0 RF: 0 lactulose 20 gram/30 mL Solution 20 g PO BID Qty: 0 RF: 0 pantoprazole [Protonix] 40 mg tablet,delayed release (DR/EC) 40 mg PO BID Qty: 60 RF: 1 Continued pravastatin 40 MG tablet 40 mg PO QHS RF: 0 paroxetine HCl 40 mg tablet 40 mg PO QHS RF: 0 guaifenesin 100 mg/5 mL Liquid 20 ml PO Q4H PRN PRN (Reason: COUGH) Qty: 0 RF: 0 acetaminophen [Tylenol] 325 mg Tablet 650 mg PO Q6H PRN PRN (Reason: Pain Score 1-10/Temp > 100.7 F) Qty: 0 RF: 0 albuterol sulfate 2.5 mg /3 mL (0.083 %) Solution For Nebulization 2.5 mg inhalation Q2H PRN PRN (Reason: Shortness of Breath/Wheezing) Qty: 0 RF: 0 atenolol 100 MG tablet 100 mg PO QHS Qty: 0 RF: 0 Changed lorazepam 1 mg Tablet 0.5 mg PO BID PRN (Reason: Anxiety) Qty: 6 RF: 0 Held aspirin 81 MG tablet,chewable 81 mg PO QHS RF: 0 Hold Instructions: Hold aspirin until 12/03/2021. No NSAIDs Discontinued hydrochlorothiazide 25 MG tablet 25 mg PO QHS RF: 0 levothyroxine 112 mcg tablet 112 mcg PO QHS RF: 0 Referrals / Follow Up: Annette Guadarrama MD [STAFF PHYSICIAN] - Within 1 Week (Patient has acute continuous CKD stage III. Creatinine is high) Mian Pal MD [Primary Care Provider] - Within 2 Weeks Felix Acosta DO [STAFF PHYSICIAN] - Within 1 Month Disposition Disposition (needs filled in before D/C Order can be placed): [facility] Facility Charges/Coding Visit Charges Inpatient E&M: 41661 Disch Hosp
--- NOTE | 2021-11-28 12:19 | PCM.PN.REN ---
Subjective Subjective Following for JAZ on CKD. The patient is confused. She denies chest pain. Shortness of breath is about the same. Objective Data Objective Data Vital Signs: Vital Signs Temp Pulse Resp BP Pulse Ox 97.8 F 64 18 160/65 H 95 11/28/21 08:09 11/28/21 08:09 11/28/21 08:09 11/28/21 08:09 11/28/21 08:25 Oxygen Flow Rate (L/min) 2 Oxygen Delivery Method Nasal Cannula Weight: 70.3 kg Body Mass Index (BMI) 25.4 Intake & Output: Intake and Output for Last 24 Hours 11/26/21 11/27/21 11/28/21 23:59 23:59 23:59 Intake Total 1424.75 / 1424.75 1558.58 / 1558.58 876.67 / 876.67 Output Total 225 / 225 150 / 150 Balance 1424.75 / 1424.75 1333.58 / 1333.58 726.67 / 726.67 Lab / Micro Data Result Diagrams: 11/28/21 06:12 11/28/21 06:12 Labs: Laboratory Results - last 24 hr 11/27/21 05:25: Tumor Marker AFP < 0.9, CA 19-9 Antigen 8 11/27/21 05:25: Folate 4.10 11/28/21 06:12: Sodium 141, Potassium 4.6, Chloride 113 H, Carbon Dioxide 24.0, Anion Gap 4 L, BUN 56 H, Creatinine 2.86 H, Estim Creat Clear Calc 12.62, Est GFR (MDRD) Af Amer 20 L, Est GFR (MDRD) Non-Af 17 L, BUN/Creatinine Ratio 19.6, Glucose 117 H, Calcium 8.0 L, Phosphorus 4.0, Total Bilirubin 0.30, Direct Bilirubin 0.09, AST 16, ALT 10 L, Alkaline Phosphatase 57, Total Protein 5.1 L, Albumin 1.8 L, Globulin 3.3 11/28/21 06:12: WBC 8.0, RBC 3.12 L, Hgb 10.5 L, Hct 33.8 L, MCV 108.3 H, MCH 33.7 H, MCHC 31.1 L, RDW Std Deviation 53.9 H, RDW Coeff of Rene 13.6, Plt Count 380, MPV 9.2, Immature Gran % (Auto) 0.800, Neut % (Auto) 71.6 H, Lymph % (Auto) 19.9, [place] % (Auto) 6.4, Eos % (Auto) 0.8, Baso % (Auto) 0.5, Absolute Neuts (auto) 5.7, Absolute Lymphs (auto) 1.59, Nucleated RBC % 0 Micro: Microbiology 11/25/21 07:30 Urine, Catheterized Urine Culture - Final Culture exhibits no growth. 11/25/21 07:30 Stool Stool Occult Blood (HERMAN) - Final Occult Blood Positive Physical Exam Narrative Const: Alert and oriented x3 HEENT: Head is normocephalic, oral mucosa is dry, lips dry Respiratory: Lung sounds clear anteriorly and posteriorly : Abdomen soft, nontender, positive bowel sounds x4 quadrants Extremities: No pitting edema Assessment & Plan Assessment/Plan (1) JAZ (acute kidney injury): PLAN: - Nonoliguric, hypovolemic JAZ on CKD stage 3 likely prerenal. Baseline creatinine since 2013 has been ranging around 1 to 1.3 mg/dL. Creatinine was 1.3 mg/dL 09/01/2021. Admission Creatinine 2.2 mg/dL--> 2.4 mg/dL--> today SCr 2.86 mg/dL. -Continue on IVF. -Renal ultrasound no hydro, renal parenchymal disease. Normal CPK. urine culture pending, UA showed +protein 500 and blood but previous UA minimal blood and protein. -Blood pressures acceptable. No acute indication for [employer]NA[employer]. Our IT TECHNICAL SPECIALIST spoke to patient's brother the last 2 days, and he stated should patient need [employer]NAGER [employer]ATE[employer], family would not want aggressive treatment such as dialysis. -If the patient is discharged today, we will arrange outpatient follow-up with Dr. Guadarrama in our [place] office. (2) Generalized weakness: (3) Anemia: (4) Essential hypertension:
--- NOTE | 2021-11-28 12:34 | CASEMGMT ---
Social Work Discharge entered. Plan is [facility]. Medical team to follow green sheet. HENS [id number] completed and faxed to [facility]. PLAN: [facility]. No further services requested or indicated. Patricia RAMIREZ, ASHLYNS
[2021-11-28 14:57] VITALS: BP 152/67; PULSE 63; RESP 18; TEMP 36.7; O2SAT 100
[2021-11-30 09:25] LABS: Vitamin B12 216 pg/mL (211-911)
== END 2021-11-28 15:15 | DRG 377 ==
LOC: ED 08:20 → PCU 08:42 → MS3 15:22
PROVIDERS: Anesthesiology; Internal Medicine Gastroenterology; Nurse Practitioner Adult Health; Admitting Provider Internal Medicine; Emergency Provider Student in an Organized Health Care Education/Training Program; PCP Family Medicine; Visit Provider Internal Medicine
PROC: 0DJ08ZZ Inspection of Upper Intestinal Tract, Via Natural or Artificial Opening Endoscopic (ICD-10-PCS; CPT 43235; principal; 2021-11-26 16:55)
DX: K25.4 Chronic or unspecified gastric ulcer with hemorrhage (principal); G93.41 Metabolic encephalopathy; K76.7 Hepatorenal syndrome; I69.351 Hemiplegia and hemiparesis following cerebral infarction affecting right dominant side; N17.9 Acute kidney failure, unspecified; D62 Acute posthemorrhagic anemia; D63.1 Anemia in chronic kidney disease; K83.8 Other specified diseases of biliary tract; K57.11 Diverticulosis of small intestine without perforation or abscess with bleeding; J44.9 Chronic obstructive pulmonary disease, unspecified; F03.90 Unspecified dementia, unspecified severity, without behavioral disturbance, psychotic disturbance, mood disturbance, and anxiety; K74.60 Unspecified cirrhosis of liver; I85.00 Esophageal varices without bleeding; N18.32 Chronic kidney disease, stage 3b; M06.9 Rheumatoid arthritis, unspecified; E78.5 Hyperlipidemia, unspecified; E03.9 Hypothyroidism, unspecified; F41.9 Anxiety disorder, unspecified; W19.XXXA Unspecified fall, initial encounter; I12.9 Hypertensive chronic kidney disease with stage 1 through stage 4 chronic kidney disease, or unspecified chronic kidney disease; D50.9 Iron deficiency anemia, unspecified; K22.5 Diverticulum of esophagus, acquired; F17.210 Nicotine dependence, cigarettes, uncomplicated; S51.812A Laceration without foreign body of left forearm, initial encounter; K20.90 Esophagitis, unspecified without bleeding; K26.4 Chronic or unspecified duodenal ulcer with hemorrhage; R62.7 Adult failure to thrive; R80.9 Proteinuria, unspecified; Z79.82 Long term (current) use of aspirin; Z66 Do not resuscitate; Z86.73 Personal history of transient ischemic attack (TIA), and cerebral infarction without residual deficits; Z20.822 Contact with and (suspected) exposure to COVID-19; H91.93 Unspecified hearing loss, bilateral; Z79.890 Hormone replacement therapy; Z79.899 Other long term (current) drug therapy; Z96.642 Presence of left artificial hip joint
CPT/HCPCS: 36415; 71045; 76770; 80048; 80069; 80076; 81001; 82105; 82140; 82274; 82550; 82607; 82746; 83615; 83735; 83880; 84100; 84443; 84484; 85025; 85379; 85610; 85730; 86301; 86850; 86900; 86901; 87086; 87426; 93005; 94640; 97110; 97162; 97166; 97530; 97535; 97802; 99251; 99285; 99406; J7050; J7120; A4216; G0463